=== PATIENT | female | born 1935 | race Caucasian/White ===

== ENCOUNTER 2017-02-23 20:20 | Emergency (ER) | payer OTHER ==
[~2017-02-23] VITALS: Ht 165.1 cm; Wt 100.2 kg
[~2017-02-23 20:20] MED LIST: COZAAR25 M1 PO; LASIX40 MG PO; METOPROLOL SUCC50 M2 PO; MULTI VITAMINS1 TAB PO; MULTI-DAY VITA1 EACH PO; OCUVITE WITH L1 EACH PO; PAROXETINE HCL40 M1 PO; PRADAXA150 M1 PO; PRAVASTATIN SOD10 M2 PO; SYNTHROID175 MCG PO; TRAZODONE HCL50 MG PO; ZESTRIL2.5 MG PO
--- NOTE | 2017-02-23 20:24 | ED MVC/FALL/TRAUMA COMPLAINT ---
History of Present Illness General Chief Complaint: Fall Stated Complaint: BIBA FOR FALL Source: patient, EMS Exam Limitations: no limitations Vital Signs & Intake/Output Vital Signs & Intake/Output Vital Signs Date Time Temp Pulse Resp B/P Pulse O2 O2 Flow FiO2 Ox Delivery Rate 02/23 2341 98.4 64 18 142/72 95 Room Air 02/23 2100 98.2 66 18 159/80 94 Room Air ED Intake and Output 02/24 0000 02/23 1200 Intake Total 0 Output Total Balance 0 Intake, Oral 0 Patient 221 lb Weight Allergies Coded Allergies: coconut oil (ITCHING ALL OVER 07/31/16) codeine ("MY BP GOES WAY DOWN" 07/31/16) Reconcile Medications DABIGATRAN ETEXILATE MESYLATE (Pradaxa) 150 MG CAPSULE 1 CAP PO BID BLOOD THINNER (Reported) Furosemide (Lasix) 40 MG TABLET 1 TAB PO DAILY congestive heart failure Levothyroxine Sodium (Synthroid) 0.175 MG TAB 0.175 MG PO DAILY AC THYROID ( Reported) Levothyroxine Sodium (Synthroid) 175 MCG TABLET 1 TAB PO DAILY THYROID HEALTH (Reported) Losartan Potassium 25 MG TABLET 1 TAB PO DAILY BP (Reported) Metoprolol Succinate 50 MG TAB.ER.24H 50 MG PO DAILY BP (Reported) Multivitamin (Multi-Day Vitamins) 1 EACH TABLET 1 TAB PO DAILY SUPPLEMENT ( Reported) PAROXETINE HCL (Paroxetine) 40 MG TABLET 40 MG PO DAILY DEPRESSION (Reported) Pravastatin Sodium 10 MG TABLET 1 TAB PO DAILY CHOLESTEROL (Reported) Vit A,C & E/Lutein/Minerals (Ocuvite With Lutein Tablet) 1 EACH TABLET 1 TAB PO DAILY SUPPLEMENT (Reported) Triage Nurses Notes Reviewed? yes Onset: Abrupt Duration: minute(s): Timing: single episode today Severity: moderate Injuries/Fall Location: head, neck Method of Injury: fall Loss of Consciousness: no loss of consciousness Modifying Factors: Worsens With: movement. Associated Symptoms: headache, neck pain HPI: 81 yo woman presents with headache and neck pain after a fall. She notes that she was vacumming and her legs got caught in the power cord. She fell, hit her head on a cupboard on the way down. She denies LOC. She had no shortness of breath, chest pain, syncopal type symptoms. She is otherwise well. Past History Travel History Traveled to [place] past 21 day No Medical History Any Pertinent Medical History? 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 SISTER Relation not specified for: FH: CHF (congestive heart failure) FH: kidney disease Hx Contributory? No Review of Systems Review of Systems Constitutional: Reports: no symptoms. Eyes: Reports: no symptoms. Ears, Nose, Throat, Mouth: Reports: no symptoms. Respiratory: Reports: no symptoms. Cardiovascular: Reports: no symptoms. Gastrointestinal/Abdominal: Reports: no symptoms. Genitourinary: Reports: no symptoms. Musculoskeletal: Reports: no symptoms. Skin: Reports: no symptoms. Neurological/Psychological: Reports: no symptoms. All Other Systems: Reviewed and Negative Physical Exam Physical Exam General Appearance: well developed/nourished, mild distress Head: atraumatic, normal appearance Eyes: Bilateral: normal appearance, PERRL, EOMI. Ears, Nose, Throat, Mouth: hearing grossly normal Neck: normal inspection, supple, full range of motion, normal alignment Respiratory: normal breath sounds, chest non-tender, no respiratory distress, quiet respiration, lungs clear Cardiovascular: regular rate/rhythm Gastrointestinal: normal bowel sounds, soft, non-tender, no organomegaly Back: normal inspection, normal range of motion Extremities: normal range of motion Neurologic/Psych: no motor/sensory deficits, awake, alert, oriented x 3 Skin: intact, normal color, warm/dry Core Measures ACS in differential dx? No Severe Sepsis Present: No Septic Shock Present: No Progress Differential Diagnosis: C/T/L spine injury, ICH Plan of Care: Orders Procedure Date/time Status EKG 02/23 2031 Active Diagnostic Imaging: Viewed by Me: CT Scan. Discussed w/RAD: CT Scan. Radiology Impression: head/cervical ct... no acute disease... full report below. Comments: PATIENT: RUBÉN ANG PRESENT AGE: 81 PATIENT ACCOUNT NO: [id number] : 35 LOCATION: [facility] ORDERING PHYSICIAN: ARTURO BASHIR MD SERVICE DATE: 02/23/17 EXAM TYPE: CAT - CT CERV SPINE WO IV CONTRAST; CT HEAD WO IV CONTRAST EXAMINATION: CT HEAD AND CERVICAL SPINE. CLINICAL INFORMATION: Fall. Head and neck pain. On Pradaxa. COMPARISON: No relevant prior imaging available. TECHNIQUE: Parking Meter Mechanic images were obtained. CT acquisition of the head and cervical spine was performed without intravenous administration of contrast. Data was reformatted into multiplanar images at the acquisition workstation. DLP: 1155.89 mGy-cm. FINDINGS: Head: There is no acute intracranial hemorrhage or abnormal extra-axial collection. There is a partially calcified dome-shaped dural based right convexity mass near the vertex best illustrated on coronal image 137 of 226 series 601 that measures 0.9 cm from base to apex that is most consistent with a meningioma. There is no intracranial mass effect or midline shift. Lateral and third ventricles are proportionate to the subarachnoid spaces. No hydrocephalus. Ill-defined foci of hypoattenuation visualized within the periventricular white matter most likely represent a chronic manifestation of small vessel ischemia. Ly-white matter differentiation is otherwise preserved and there is no evidence of acute territorial infarct. The calvarium and skull base are intact. Mastoid air cells and middle ear cavities are well aerated. Visualized paranasal sinuses are well aerated. Cervical spine: There is slight anterolisthesis of C3 on C4, C4 on C5, C5 on C6, and C7 on T1 related to advanced facet degenerative changes at these 4 levels. Vertebral alignment is otherwise maintained in the sagittal dimension. Vertebral body heights are preserved. There is no evidence of acute fracture. No abnormal prevertebral soft tissue swelling. There is loss of intervertebral disc height with associated sclerotic degenerative endplate changes at C6-C7. Grossly there is no evidence of canal compromise. Heavily calcified atheromatous plaque involves both carotid bifurcations. There is a retropharyngeal course of both common carotid arteries. Soft tissues of the neck are grossly unremarkable. Lung apices are clear. IMPRESSION: Head: No acute intracranial hemorrhage. Incidentally there is a right convexity meningioma near the vertex measuring 0.9 cm from base to apex. Cervical spine: No acute cervical spine fracture. There is multilevel degenerative spondylosis of the cervical spine with slight anterolisthesis at multiple levels related to advanced facet degenerative changes. Grossly no evidence of bony canal compromise. DICTATED BY: LIVIER CASTILLO MD DATE/TIME DICTATED:02/23/172104 RN OR LVN:MAGGY DATE/TIME TRANSCRIBED:02/23/172104 CONFIDENTIAL, DO NOT COPY WITHOUT APPROPRIATE AUTHORIZATION. <Electronically signed in Other Vendor System> SIGNED BY: LIVIER CASTILLO MD 02/23 Departure Departure Disposition: HOME OR SELF CARE Condition: Stable Clinical Impression Primary Impression: Fall Secondary Impressions: Head injury, Neck pain Referrals: KARLI DE JESUS,LEENA Antunez (PCP/Family) Departure Forms: Customer Survey General Discharge Information Comments pt well appearing and would like to go home... discussed findings at length, including meningioma... and showed family/patient the ct scan dictation.... pt safe for discharge with close follow up.
--- NOTE | 2017-02-23 21:37 | CT SCAN REPORT ---
EXAMINATION: CT HEAD AND CERVICAL SPINE. CLINICAL INFORMATION: Fall. Head and neck pain. On Pradaxa. COMPARISON: No relevant prior imaging available. TECHNIQUE: Director Of Services images were obtained. CT acquisition of the head and cervical spine was performed without intravenous administration of contrast. Data was reformatted into multiplanar images at the acquisition workstation. DLP: 1155.89 mGy-cm. FINDINGS: Head: There is no acute intracranial hemorrhage or abnormal extra-axial collection. There is a partially calcified dome-shaped dural based right convexity mass near the vertex best illustrated on coronal image 137 of 226 series 601 that measures 0.9 cm from base to apex that is most consistent with a meningioma. There is no intracranial mass effect or midline shift. Lateral and third ventricles are proportionate to the subarachnoid spaces. No hydrocephalus. Ill-defined foci of hypoattenuation visualized within the periventricular white matter most likely represent a chronic manifestation of small vessel ischemia. Ly-white matter differentiation is otherwise preserved and there is no evidence of acute territorial infarct. The calvarium and skull base are intact. Mastoid air cells and middle ear cavities are well aerated. Visualized paranasal sinuses are well aerated. Cervical spine: There is slight anterolisthesis of C3 on C4, C4 on C5, C5 on C6, and C7 on T1 related to advanced facet degenerative changes at these 4 levels. Vertebral alignment is otherwise maintained in the sagittal dimension. Vertebral body heights are preserved. There is no evidence of acute fracture. No abnormal prevertebral soft tissue swelling. There is loss of intervertebral disc height with associated sclerotic degenerative endplate changes at C6-C7. Grossly there is no evidence of canal compromise. Heavily calcified atheromatous plaque involves both carotid bifurcations. There is a retropharyngeal course of both common carotid arteries. Soft tissues of the neck are grossly unremarkable. Lung apices are clear. IMPRESSION: Head: No acute intracranial hemorrhage. Incidentally there is a right convexity meningioma near the vertex measuring 0.9 cm from base to apex. Cervical spine: No acute cervical spine fracture. There is multilevel degenerative spondylosis of the cervical spine with slight anterolisthesis at multiple levels related to advanced facet degenerative changes. Grossly no evidence of bony canal compromise.
[2017-02-23] MEDS ORDERED: SYNTHROID175 MCG PO (23:30)
[2017-02-23 23:41] VITALS: BP 142/72
== END 2017-02-23 23:42 ==
LOC: ERH 20:20
DX: S09.90XA Unspecified injury of head, initial encounter (principal); M54.2 Cervicalgia; W19.XXXA Unspecified fall, initial encounter; Y92.9 Unspecified place or not applicable; Y93.E3 Activity, vacuuming

== ENCOUNTER 2017-03-28 10:11 | Inpatient (IN) | payer OTHER ==
[~2017-03-28] VITALS: Ht 162.6 cm; Wt 102.5 kg
[2017-03-28] MEDS ORDERED: FUROSEMIDE40 M1 PO (10:34)
--- NOTE | 2017-03-28 10:44 | ED MVC/FALL/TRAUMA COMPLAINT ---
History of Present Illness General Chief Complaint: Fall Stated Complaint: FALL Source: patient, old records, EMS Exam Limitations: no limitations Vital Signs & Intake/Output Vital Signs & Intake/Output Vital Signs Date Time Temp Pulse Resp B/P B/P Pulse O2 O2 Flow FiO2 Mean Ox Delivery Rate 03/28 1457 97.5 89 20 122/80 98 03/28 1402 84 18 140/74 93 Room Air 03/28 1218 98.4 78 18 162/70 93 Room Air 03/28 1040 93 03/28 1013 97.9 85 20 178/107 93 Room Air Allergies Coded Allergies: coconut oil (ITCHING ALL OVER 07/31/16) codeine ("MY BP GOES WAY DOWN" 07/31/16) Reconcile Medications Dabigatran Etexilate Mesylate (Pradaxa 150 MG) 150 MG CAPSULE 1 CAP PO BID BLOOD THINNER (Reported) Furosemide 40 MG TABLET 1 TAB PO DAILY CHF (Reported) Levothyroxine Sodium (Synthroid) 175 MCG TABLET 1 TAB PO DAILY AC THYROID ( Reported) Losartan Potassium (Cozaar) 25 MG TABLET 1 TAB PO DAILY BP (Reported) Metoprolol Succinate 50 MG TAB.ER.24H 1 TAB PO DAILY BP (Reported) Multivitamin (Multi-Day Vitamins) 1 EACH TABLET 1 TAB PO DAILY SUPPLEMENT ( Reported) Paroxetine HCl 40 MG TABLET 1 TAB PO DAILY DEPRESSION (Reported) Pravastatin Sodium 10 MG TABLET 1 TAB PO DAILY CHOLESTEROL (Reported) Vit A,C & E/Lutein/Minerals (Ocuvite With Lutein Tablet) 1 EACH TABLET 1 TAB PO DAILY SUPPLEMENT (Reported) Triage Note: BIBA FROM HOME, S/P FALL IN BATHROOM, STATES SHE TRIPPED OVER HER 'S OXYGEN HOSE, HIT LEFT SIDE OF HEAD AND LEFT HIP. C/O PAIN IN LEFT HIP. DENIES DIZZINESS, WEAKNESS, CHEST PAIN PRIOR TO FALL. PT IS ON PRADAXA. Triage Nurses Notes Reviewed? yes Onset: Abrupt Duration: hour(s): (1), constant Timing: recent history Severity: severe Severity Numbers: 10 Injuries/Fall Location: lower extremity Method of Injury: fall Loss of Consciousness: no loss of consciousness Modifying Factors: Worsens With: movement. Associated Symptoms: DENIES HPI: This is an 81-year-old female history of CHF and A. fib on pradaxa presents to the ER status post mechanical fall when she tripped over her 's oxygen hose striking her left hip. She now presents complaining of moderate to severe left hip pain is worse with movement. She denies any prodromal dizziness lightheadedness chest pain palpitations prior to the fall. She states that she did bump her head however there is no loss of consciousness she denies any neck or back pain or arm pain chest pain abdominal pain or other injury. (EASTON GANDHI) Past History Travel History Traveled to [place] past 21 day No Medical History Any Pertinent Medical History? 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 SISTER Relation not specified for: FH: CHF (congestive heart failure) FH: kidney disease Hx Contributory? No (EASTON GANDHI) Review of Systems Review of Systems Constitutional: Reports: see HPI. All Other Systems: Reviewed and Negative Comments Review of systems: See HPI, All other systems negative. Constitutional, no chills no fever, no malaise HEENT: no sore throat no congestion Cardiovascular: No chest pain , no palpitation , no orthopnea Skin: no rashes, no change in skin Respiratory: No dyspnea no cough no sputum GI: No nausea no vomiting, no diarrhea, : No dysuria No hematuria, Muscle skeletal: joint pain, no joint swelling, no back pain, no neck pain, Neurologic: No numbness no confusion, no headache Psych: No stress Heme/endocrine: No bruising Immunology: No lymphadenopathy (EASTON GANDHI) Physical Exam Physical Exam General Appearance: well developed/nourished, alert, awake, moderate distress Comments: Well-developed well-nourished person in no acute distress HEENT: Normal EENT exam; PERRL, EOMI, no nystagmus. HEAD is atraumatic. moist mucous membranes. Neck: Supple,, normal range of motion without pain or tenderness Back: Nontender, no CVA tenderness. Full range of motion Cardiovascular: Regular rate and rhythms no murmurs rubs or gallops, Respiratory: chest nontender, No respiratory distress. Patient speaking in full complete sentences. Breath sounds clear to auscultation bilaterally: NO W/R/R Abdomen: Soft, nontender nondistended, no appreciable organomegaly. Normal bowel sounds. No rebound/guarding, No appreciable enlargement of the abdominal aorta, No ascites. Upper Extremity: No edema, full range of motion of extremities, normal and equal pulses bilaterally, 5 out of 5 strength noted to bilateral upper and lower extremities Hip/Pelvis: L leg is shortned and externall rotated, Severely lrom seconary to pain, r hip is Atraumatic/Stable. FROM. Knee: Atraumatic/stable. FROM. No joint swelling, no effusion. No laxity. Negative eric/anterior drawer test. No pain with ROM Leg: Atraumatic. Nontender. No edema, 5 out of 5 strength in the lower extremity, normal dorsiflexion of great toe bilaterally, gross sensation is intact, patellar tendon reflex 2+ bilaterally. Ankle/Foot: Atraumatic/stable. Skin intact. FROM. No swelling, no effusion. No laxity on exam Pulses: Normal/equal DP/PT pulses bilaterally. Brisk cap refill Neuro: Alert oriented x3, motor sensory normal, cranial nerves II through XII grossly intact. There were no obvious focal neurologic abnormalities. Skin: No appreciable rash on exposed skin, skin is warm and dry. Psych: Mood and affect is normal, memory and judgment is normal. Core Measures ACS in differential dx? Yes Severe Sepsis Present: No Septic Shock Present: No (ALPHONSO BARTHOLOMEW,EASTON) Progress Differential Diagnosis: C/T/L spine injury, ext injury, ICH, pelvis injury, spinal cord injury Plan of Care: Orders Procedure Date/time Status PT Evaluate & Treat 03/30 UNK Active Heart Healthy Diet 03/28 D Active Vital Signs 03/28 1355 Active Teach/Educate 03/28 1355 Active Pain Treatment and Response 03/28 1355 Active Nutritional Intake, Monitor 03/28 1355 Active Isolation 03/28 1355 Active Intake & Output 03/28 1355 Active Patient Care Conference 03/28 1355 Active Activity/Ambulation 03/28 135 Active Pathway - chart 03/28 1253 Active House Staff 03/28 1253 Active Bowers, Insertion/Removal/Asses 03/28 1221 Active CULTURE,URINE 03/28 1221 Active Patient Data 03/28 1217 Active ED Holding Orders 03/28 1213 Active Vital Signs 03/28 1213 Active Code Status 03/28 1213 Active Admit to inpatient 03/28 1212 Active Telemetry/Care Administrative Tech 03/28 1030 Complete TROPONIN LEVEL 03/28 1030 Complete PARTIAL THROMBOPLASTIN TIME 03/28 1030 Complete PROTHROMBIN TIME 03/28 1030 Complete COMPREHENSIVE METABOLIC PANEL 03/28 1030 Complete CBC WITHOUT DIFFERENTIAL 03/28 1030 Complete EKG 03/28 1030 Active TYPE & SCREEN (NOT X-MATCH) 03/28 1030 Active Intake & Output 03/28 1022 Active VTE Mechanical Prophylaxis 03/28 UNK Active Current Medications Sig/Tena Start time Last Medication Dose Stop Time Status Admin Pravastatin Sodium 10 MG 1700 03/29 1700 AC (Pravachol) Furosemide 40 MG DAILY 03/29 1000 AC (Lasix) Losartan Potassium 25 MG DAILY 03/29 1000 AC (Cozaar) Metoprolol Succinate 50 MG DAILY 03/29 1000 AC (Toprol Xl) Paroxetine HCl 40 MG DAILY 03/29 1000 AC (Paxil) Levothyroxine Sodium 0.175 MG DAILY AC 03/29 0700 AC (Synthroid) Heparin Sodium 5,000 UNIT Q8 03/28 2200 AC (Porcine) Morphine Sulfate 2 MG Q6P PRN 03/28 1415 AC 03/28 (Morphine) 1524 Acetaminophen 650 MG Q6P PRN 03/28 1300 AC (Tylenol) Ketorolac 15 MG Q6P PRN 03/28 1300 AC Tromethamine 04/02 1259 (Toradol) Laboratory Tests 03/28/17 1030: Anion Gap 11, Estimated GFR > 60, BUN/Creatinine Ratio 21.7, Glucose 104 H, Calcium 9.5, Total Bilirubin 0.7, AST 32, ALT 34, Alkaline Phosphatase 101, Troponin I < 0.01, Total Protein 7.2, Albumin 4.0, Globulin 3.2, Albumin/ Globulin Ratio 1.3, PT 13.5 H, INR 1.29 H, APTT 51 H, CBC w Diff NO MAN DIFF REQ, RBC 4.48, MCV 98.1, MCH 32.9 H, RDW 14.0, MPV 8.9, Gran % 58.8, Lymphocytes % 26.7, Monocytes % 10.8 H, Eosinophils % 3.4, Basophils % 0.3, Absolute Granulocytes 4.2, Absolute Lymphocytes 1.9, Absolute Monocytes 0.8 H, Absolute Eosinophils 0.2, Absolute Basophils 0, PUBS MCHC 33.5 Microbiology 03/28 1225 URINE ROUT: Urine Culture - RECD Patient medicated with morphine 2 mg IV labs ordered x-rays CAT scan ordered case discussed with Dr. baker who eval the pt and agrees with plan D/W THE PT AND HER DAUGHTER HER CT AND XDRAY RESULTS INCLUDING INCIDENTAL FINDINGS, CALL PLACED TO ORTHO Case discussed with surgical PA evaluate the patient and Dr. Biggs will admit to GEN med discussed the patient and her family her x-ray results, [facility] spoke with the unit receptionist and advised that the physician has seen the xray advised to have surgical pa eval the pt and admit to medicine (ALPHONSO BARTHOLOMEW,EASTON) Diagnostic Imaging: Viewed by Me: Radiology Read, CT Scan. Discussed w/RAD: Radiology Read, CT Scan. Radiology Impression: PATIENT: RUBÉN ANG PRESENT AGE: 81 PATIENT ACCOUNT NO: [id number] : 35 LOCATION: [facility] ORDERING PHYSICIAN: EASTON BARTHOLOMEW SERVICE DATE: 03/28/17 EXAM TYPE: RAD - XRY-ANKLE 3 OR MORE VIEWS L; XRY-HIP 2-3 VIEWS, LEFT EXAMINATION: CR LEFT HIP. CR LEFT ANKLE. CLINICAL INFORMATION: Fall. Left hip pain. Presumptive diagnosis of hip fracture. Ankle pain. COMPARISON: CT scan of the abdomen and pelvis dated 03/31/2015. TECHNIQUE: Frontal and frog-leg lateral views of the left hip. Single lateral view of the left ankle. FINDINGS: Left hip: Evaluation is limited due to difficulties with patient positioning. Diffuse osteopenia. Mildly comminuted intratrochanteric fracture of the left proximal femur with varus deformity and slight overriding of fracture fragments. Left femoral head remains located within the acetabulum. Mild degenerative changes seen in the left hip joint with joint space narrowing, spurring and cystic changes noted across both sides of the joint. Mild sclerotic changes are also seen at the pubic symphysis and sacroiliac joint. Arteriovascular calcifications seen in the groin and proximal thigh. Left ankle: Single lateral view demonstrates a side plate with interlocking screws projected over the distal fibula. There is marked flattening of the talar dome and [id number] appearance of the tibiotalar joint with associated biopsy, sclerotic change and cystic change noted. Flattening of the plantar arch is seen. Fusion of the calcaneus and talus is noted. No significant ankle joint effusion is seen. Mild soft tissue swelling is noted about the anterior aspect of the ankle joint. Diffuse osteopenia is present. Degenerative changes as seen in the intertarsal joints. IMPRESSION: 1. Acute comminuted and mildly impacted intertrochanteric fracture of the left proximal femur. 2. Evaluation of left ankle limited but there is evidence of prior open reduction internal fixation presumably of the distal fibular fracture. Arthrodesis of the hindfoot is also noted as discussed above. 3. Osteopenia. DICTATED BY: ANGELICA HALL MD DATE/TIME DICTATED:03/28/171210 GAME TECHNICIAN:MAGGY DATE/TIME TRANSCRIBED:03/28/171210 CONFIDENTIAL, DO NOT COPY WITHOUT APPROPRIATE AUTHORIZATION. <Electronically signed in Other Vendor System> SIGNED BY: ANGELICA HALL MD 03/28/17 1223, PATIENT: RUBÉN ANG PRESENT AGE: 81 PATIENT ACCOUNT NO : [id number] : 35 LOCATION: [facility] ORDERING PHYSICIAN: EASTON BARTHOLOMEW SERVICE DATE: 03/28/17 EXAM TYPE: RAD - XRY-CHEST XRAY, ONE VIEW ONLY EXAMINATION:\\H\\ \\N\\XR CHEST CLINICAL INFORMATION: Fall. Hip fracture COMPARISON: 07/31/2016 TECHNIQUE: AP view of the chest was obtained. FINDINGS: No acute findings compared to the prior radiograph. Probable chronic, mild atelectasis in the lingula adjacent to the prominent pericardial fat pad. No pulmonary edema, focal consolidation or pleural effusion. Cardiac silhouette is chronically enlarged. The single lead pacemaker is in satisfactory position. Thoracic aorta is calcified. Chronic osteoarthritis of glenohumeral joints. Mild dextrocurvature of the degenerated thoracic spine. IMPRESSION: - Cardiomegaly without pulmonary edema. - No acute cardiopulmonary disease compared to 2015. DICTATED BY: TAYE RODRIGUES MD DATE/TIME DICTATED:03/28/171213 GAME TECHNICIAN:MAGGY DATE/TIME TRANSCRIBED:03/28/171213 CONFIDENTIAL, DO NOT COPY WITHOUT APPROPRIATE AUTHORIZATION. <Electronically signed in Other Vendor System> SIGNED BY: TAYE RODRIGUES MD 03/28/171219, PATIENT: RUBÉN ANG PRESENT AGE: 81 PATIENT ACCOUNT NO: [id number] : 35 LOCATION: [facility] ORDERING PHYSICIAN: EASTON BARTHOLOMEW SERVICE DATE: 03/28/17 EXAM TYPE: CAT - CT HEAD WO IV CONTRAST EXAMINATION: CT HEAD WITHOUT CONTRAST CLINICAL INFORMATION: One projects a. Fall. Hit head. Assess for intracranial bleed. COMPARISON: CT scan of the head 02/23/2017. TECHNIQUE: Contiguous axial imaging was performed from the skull base to vertex without intravenous administration of contrast. DLP: 617.42 mGy-cm FINDINGS: There is no evidence of acute intracranial hemorrhage or territorial infarction. No abnormal mass effect or midline shift is seen. Ly to white matter differentiation is well preserved. No extra-axial fluid collections are identified. The ventricles are normal in size. There are scattered areas of low attenuation in the periventricular and subcortical white matter, consistent with chronic microvascular ischemic changes. There are no acute osseous findings. There is hyperostosis frontalis interna. An extra-axial well-defined partially calcified lesion in the high left frontal region medially which measures 1.1 cm may be consistent with a meningioma. There is no significant mass effect on the adjacent brain parenchyma. There are degenerative changes at the left temporomandibular joint. There have been bilateral lens extractions. There are no large scalp contusions or hematomas. The mastoid air cells and visualized portions of the paranasal sinuses are well aerated. IMPRESSION: 1. There are no intracranial bleeds or territorial infarcts. 2. There is likely a meningioma in the high right frontal region medially, unchanged. 3. There are changes consistent with chronic microvascular ischemic disease. DICTATED BY: CAROLEE SMART MD DATE/TIME DICTATED:03/28/171219 GAME TECHNICIAN:MAGGY DATE/TIME TRANSCRIBED:03/28/171219 CONFIDENTIAL, DO NOT COPY WITHOUT APPROPRIATE AUTHORIZATION. <Electronically signed in Other Vendor System> SIGNED BY: CAROLEE SMART MD 03/28/17 1232 Initial ED EKG: vpaced at 60, normal axis,no acute st seg changes Prior EKG: unchanged (07/2016) (EASTON GANDHI) Departure Departure Disposition: STILL A PATIENT Condition: Stable Clinical Impression Primary Impression: Intertrochanteric fracture of left hip Secondary Impressions: Fall Referrals: KARLI DE JESUS,LEENA Antunez (PCP/Family) Departure Forms: Customer Survey General Discharge Information Admission Note Spoke With: WINNIE BIGGS MD Documentation of Exam: Documentation of any treatments & extenuating circumstances including Concerns Regarding Discharge (functional status, medication knowledge or non-compliance, living conditions, etc.) that warrant an admission rather than observation: will require will require surgical fixation, ortho, cardiology clearance, premature discharge would be medically harmful (EASTON GANDHI) PA/INVENTORY PLANNER Co-Sign Statement Statement: ED Attending supervision documentation- [X] I saw and evaluated the patient. I have also reviewed all the pertinent lab results and diagnostic results. I agree with the findings and the plan of care as documented in the PA's/INVENTORY PLANNER's documentation. [] I have reviewed the ED Record and agree with the PA's/INVENTORY PLANNER's documentation. [] Additions or exceptions (if any) to the PAs/INVENTORY PLANNER's note and plan are summarized below: [] (BRENDA BAKER DO)
[2017-03-28 10:55] LABS: ABSOLUTE BASOPHIL COUNT 0 /CUMM (0.0-0.2); ABSOLUTE EOSINOPHIL COUNT 0.2 /CUMM (0.0-0.7); ABSOLUTE GRANULOCYTE CT 4.2 /CUMM (1.4-6.5); ABSOLUTE LYMPH COUNT 1.9 /CUMM (1.2-3.4); ABSOLUTE MONOCYTE COUNT 0.8 /CUMM (0.10-0.60); BASOPHIL % 0.3 % (0.0-2.0); EOSINOPHIL % 3.4 % (0-5); GRANULOCYTE % 58.8 % (42.2-75.2); HEMATOCRIT 43.9 % (37-47); MEAN CORPUSCULAR HGB 32.9 PG (27.0-31.0); MEAN CORPUSCULAR HGB CONC 33.5 G/DL (33.0-37.0); MEAN CORPUSCULAR VOLUME 98.1 FL (81.0-99.0); MEAN PLATELET VOLUME 8.9 FL (7.4-10.4); PLATELET COUNT 201 /CUMM (130-400); RED BLOOD CELL CT 4.48 /CUMM (4.20-5.40); WHITE BLOOD CELL COUNT 7.2 /CUMM (4.8-10.8)
[2017-03-28 11:03] LABS: PT 13.5 SEC (9.4-12.5); PTT 51 SEC (25-37)
--- NOTE | 2017-03-28 12:20 | RADIOLOGY REPORT ---
EXAMINATION:\H\ \N\XR CHEST CLINICAL INFORMATION: Fall. Hip fracture COMPARISON: 07/31/2016 TECHNIQUE: AP view of the chest was obtained. FINDINGS: No acute findings compared to the prior radiograph. Probable chronic, mild atelectasis in the lingula adjacent to the prominent pericardial fat pad. No pulmonary edema, focal consolidation or pleural effusion. Cardiac silhouette is chronically enlarged. The single lead pacemaker is in satisfactory position. Thoracic aorta is calcified. Chronic osteoarthritis of glenohumeral joints. Mild dextrocurvature of the degenerated thoracic spine. IMPRESSION: - Cardiomegaly without pulmonary edema. - No acute cardiopulmonary disease compared to 08/10/2016.
--- NOTE | 2017-03-28 12:23 | RADIOLOGY REPORT ---
EXAMINATION: CR LEFT HIP. CR LEFT ANKLE. CLINICAL INFORMATION: Fall. Left hip pain. Presumptive diagnosis of hip fracture. Ankle pain. COMPARISON: CT scan of the abdomen and pelvis dated 03/31/2015. TECHNIQUE: Frontal and frog-leg lateral views of the left hip. Single lateral view of the left ankle. FINDINGS: Left hip: Evaluation is limited due to difficulties with patient positioning. Diffuse osteopenia. Mildly comminuted intratrochanteric fracture of the left proximal femur with varus deformity and slight overriding of fracture fragments. Left femoral head remains located within the acetabulum. Mild degenerative changes seen in the left hip joint with joint space narrowing, spurring and cystic changes noted across both sides of the joint. Mild sclerotic changes are also seen at the pubic symphysis and sacroiliac joint. Arteriovascular calcifications seen in the groin and proximal thigh. Left ankle: Single lateral view demonstrates a side plate with interlocking screws projected over the distal fibula. There is marked flattening of the talar dome and [id number] appearance of the tibiotalar joint with associated biopsy, sclerotic change and cystic change noted. Flattening of the plantar arch is seen. Fusion of the calcaneus and talus is noted. No significant ankle joint effusion is seen. Mild soft tissue swelling is noted about the anterior aspect of the ankle joint. Diffuse osteopenia is present. Degenerative changes as seen in the intertarsal joints. IMPRESSION: 1. Acute comminuted and mildly impacted intertrochanteric fracture of the left proximal femur. 2. Evaluation of left ankle limited but there is evidence of prior open reduction internal fixation presumably of the distal fibular fracture. Arthrodesis of the hindfoot is also noted as discussed above. 3. Osteopenia.
--- NOTE | 2017-03-28 12:32 | CT SCAN REPORT ---
EXAMINATION: CT HEAD WITHOUT CONTRAST CLINICAL INFORMATION: One projects a. Fall. Hit head. Assess for intracranial bleed. COMPARISON: CT scan of the head 02/23/2017. TECHNIQUE: Contiguous axial imaging was performed from the skull base to vertex without intravenous administration of contrast. DLP: 617.42 mGy-cm FINDINGS: There is no evidence of acute intracranial hemorrhage or territorial infarction. No abnormal mass effect or midline shift is seen. Ly to white matter differentiation is well preserved. No extra-axial fluid collections are identified. The ventricles are normal in size. There are scattered areas of low attenuation in the periventricular and subcortical white matter, consistent with chronic microvascular ischemic changes. There are no acute osseous findings. There is hyperostosis frontalis interna. An extra-axial well-defined partially calcified lesion in the high left frontal region medially which measures 1.1 cm may be consistent with a meningioma. There is no significant mass effect on the adjacent brain parenchyma. There are degenerative changes at the left temporomandibular joint. There have been bilateral lens extractions. There are no large scalp contusions or hematomas. The mastoid air cells and visualized portions of the paranasal sinuses are well aerated. IMPRESSION: 1. There are no intracranial bleeds or territorial infarcts. 2. There is likely a meningioma in the high right frontal region medially, unchanged. 3. There are changes consistent with chronic microvascular ischemic disease.
--- NOTE | 2017-03-28 12:55 | History & Physical ---
JOSE LOPEZ MD 03/28/17 2927: General Information and HPI MD Statement: I have seen and personally examined RUBÉN ANG and documented this H&P. The patient is a 81 year old F who presented with a patient stated chief complaint of [right hip pain]. Source of Information: patient, family History of Present Illness: THIS IS A 81-year-old woman with a past medical history of chronic atrial fibrillation (anticoagulated with Pradaxa), sick sinus syndrome, status post pacemaker implantation 2 years back, hypothyroidism and COPD on home oxygen as weLL all, pulmonary hypertension with RV pressures greater than 50 on the last echo in 2016, who presented to the [facility] after she had a mechanical fall while trying to ambulate with her walker. As per the patient she was trying to get out of the bed and her walker caught tangled in the oxygen tubing(FOR her ). The patient slightly twisted her leg and landed up on her left hip. The patient never lost consciousness, denied any dizziness, palpitations, chest pain prior to the fall. Patient has an extensive cardiac history as mentioned above and has taken her dose of pradaxa in The morning Allergies/Medications Allergies: Coded Allergies: coconut oil (ITCHING ALL OVER 07/31/16) codeine ("MY BP GOES WAY DOWN" 07/31/16) Home Med list Dabigatran Etexilate Mesylate (Pradaxa 150 MG) 150 MG CAPSULE 1 CAP PO BID BLOOD THINNER (Reported) Furosemide 40 MG TABLET 1 TAB PO DAILY CHF (Reported) Levothyroxine Sodium (Synthroid) 175 MCG TABLET 1 TAB PO DAILY AC THYROID ( Reported) Losartan Potassium (Cozaar) 25 MG TABLET 1 TAB PO DAILY BP (Reported) Metoprolol Succinate 50 MG TAB.ER.24H 1 TAB PO DAILY BP (Reported) Multivitamin (Multi-Day Vitamins) 1 EACH TABLET 1 TAB PO DAILY SUPPLEMENT ( Reported) Paroxetine HCl 40 MG TABLET 1 TAB PO DAILY DEPRESSION (Reported) Pravastatin Sodium 10 MG TABLET 1 TAB PO DAILY CHOLESTEROL (Reported) Vit A,C & E/Lutein/Minerals (Ocuvite With Lutein Tablet) 1 EACH TABLET 1 TAB PO DAILY SUPPLEMENT (Reported) Past History Travel History Traveled to [place] past 21 day No Medical History Neurological: NONE EENT: NONE Cardiovascular: AFIB, CHF, PACEMAKER CAROTID STENTS PER PT PACEMAKER Respiratory: NONE Gastrointestinal: NONE Hepatic: NONE Renal: NONE Musculoskeletal: NONE Psychiatric: NONE Endocrine: NONE Blood Disorders: NONE Cancer(s): breast cancer EXPLOSIVES ENGINEER/Reproductive: NONE History of MRSA: No History of VRE: No History of CDIFF: No Surgical History Surgical History: STAUS POST THYROIDECTOMY Past Family/Social History Family History Relations & Conditions if any FATHER, . SISTER MOTHER MOTHER Relation not specified for: FH: CHF (congestive heart failure) FH: hypertension FH: kidney disease Psychosocial History Services at Home: None Primary Language: Monegasque Smoking Status: Never Smoked ETOH Use: occasional use Review of Systems Review of Systems Constitutional: Reports: see HPI. EENTM: Reports: see HPI. Cardiovascular: Reports: chest pain. Denies: edema, orthopena, palpitations. Respiratory: Denies: cough, hemoptysis, orthopnea, short of breath. GI: Denies: abdominal pain, constipation, distention. Genitourinary: Denies: dysuria, frequency, hematuria, hesitation. Musculoskeletal: Reports: see HPI. Exam & Diagnostic Data Last 24 Hrs of Vital Signs/I&O Vital Signs Date Time Temp Pulse Resp B/P B/P Pulse O2 O2 Flow FiO2 Mean Ox Delivery Rate 03/28 1218 98.4 78 18 162/70 93 Room Air 03/28 1040 93 03/28 1013 97.9 85 20 178/107 93 Room Air Intake & Output 03/28 1600 03/28 0800 03/28 0000 Intake Total 10 Output Total Balance 10 Intake, IV 10 Patient 226 lb Weight Weight Reported by Patient Measurement Method Physical Exam General Appearance Alert, Oriented X3, Cooperative Skin No Rashes, No Breakdown Skin Temp/Moisture Exam: Warm/Dry Neck Supple, No JVD Lymphatic Axillary nl, Cervical nl Cardiovascular Normal S1, Normal S2 Lungs Clear to Auscultation, Normal Air Movement Abdomen Normal Bowel Sounds, Soft, No Tenderness, No Hepatospenomegaly Neurological Normal Speech, Strength at 5/5 X4 Ext, Normal Tone Extremities left leg shortened internally rotated Assessment/Plan Assessment: [id number] female with a past medical history of atrial fibrillation on Protonix, sick sinus syndrome status post pacemaker placement, to [facility] after having a mechanical fall which ended up in the left hip fracture Vitals at the time of admission showed blood pressure 162/70, afebrile, saturation of 94% on room air, respiration rate of 18, Labs shows WBC of 7.2, stable hemoglobin and hematocrit, Basic electrolyte panel within normal limits INR 1.29 EKG shows ventricle paced rhythm HIP xRY: 1. Acute comminuted and mildly impacted intertrochanteric fracture of the left proximal femur. 2. Evaluation of left ankle limited but there is evidence of prior open reduction internal fixation presumably of the distal fibular fracture. Arthrodesis of the hindfoot is also noted as discussed above. 3. Osteopenia. Asessment: 1. Acute Communted intratrochanteric fracture of left hip 2. H/O atrial fibrialltion on pradaxa with last dose on on the morning of 3.H/o sick sinus syndrome s/p pacemaker placement 4.H/O aortic aneyrusm s/p stent placemnet 5.H/O HLD 6.H/O Hypothyroidism and on synthroid. PLan: Admit to [facility] for aniticipation of surgery . Patient needs to be off Pradaxa 48 hours and hence we will make the patient nothing by mouth on night with the plan of surgery on Sunday morning Spoke to the patient's maintenance inspector Dr. Song Tan who is in agreement unfolding Pradaxa and no plans of bridging with IV heparin as the patient does not carry any previous history of stroke Dr. Peri Ferris will do a formal consult in the morning Continue with IV fluids and IV morphine for pain control Continue with all other home medications Appreciate orthopedic consult DVT prophylaxis with S/q Heaprin Fc Pain pathway As Ranked By This Provider Problem List: 1. CHF (congestive heart failure) 2. Intertrochanteric fracture of left hip Core Measures/Miscellaneous Acute Coronary Syndrome ACS Diagnosis: No Cerebrovascular Accident CVA/TIA Diagnosis: No Congestive Heart Failure CHF Diagnosis: No Venous Thromboembolism VTE Risk Factors: Acute medical illness, Age > 40 No [facility] VTE prophylaxis d/t: VTE low risk, No contraindications No VTE Pharm Prophylaxis d/t: VTE low risk, No contraindications VTE Diagnosis: No VTE Type: NONE VTE Confirmed by (Test): NONE Severe Sepsis Severe Sepsis Present: No Septic Shock Septic Shock Present: No Miscellaneous Documentation Attending Case Discussed With: LEONARD JOHNSON MD Primary Care Physician: LEENA CALVILLO MD Patient sees these Specialists dr peri tanner Level of Patient Care: General Medicine LEONARD JOHNSON 03/28/17 1340: Attending MD Review Statement Attending Statement Attending MD Statement: examined this patient, discuss w/resident/PA/EXCEPTIONAL NEEDS TEACHER, agreed w/resident/PA/EXCEPTIONAL NEEDS TEACHER, discussed with family, reviewed EMR data (avail), discussed with nursing, discussed with case mgmt, reviewed images, amended to note Attending Assessment/Plan: Patient being admitted for left hip fracture for repair. Pain control, hold pradaxa, orthopedis consult, gi/dvt prophyalxis, full code plan of care d/wed patient and family bedside.
--- NOTE | 2017-03-28 13:13 | Cons- Orthopedic ---
ABDIRIZAK LOPEZ 03/28/17 1241: General Information and HPI Consulting Request Date of Consult: 03/28/17 Requested By: LEONARD JOHNSON MD Reason for Consult: Left hip fracture s/p fall Source of Information: patient, family, old records History of Present Illness: 81yoF sp mechanical fall at home, found to have left intertrocanteric fracture. She ambulates with a walker at baseline, and her foot got caught in her ' s oxygen tubing which caused her to trip and fall. She does admit to hitting her head, however did not loose consciousness. She denies dizziness, lightheadedness, palpitations, chest pain or shortness of breath at the time of the fall and believes this was truly a mechanical fall. At this time, she has some pain in her left leg and hip, but denies any other symptoms including chest pain, shortness of breath, fever, chills, nausea, vomiting. She has an extensive past medical history, significant for atrial fibrillation on pradaxa (last dose this am), COPD on home O2, hypertension, hypothyroidism status post thyroidectomy, CHF, pulmonary hypertension, hyperlipidemia, sp orif left ankle. Allergies/Medications Allergies: Coded Allergies: coconut oil (ITCHING ALL OVER 07/31/16) codeine ("MY BP GOES WAY DOWN" 07/31/16) Home Med List: Dabigatran Etexilate Mesylate (Pradaxa 150 MG) 150 MG CAPSULE 1 CAP PO BID BLOOD THINNER (Reported) Furosemide 40 MG TABLET 1 TAB PO DAILY CHF (Reported) Levothyroxine Sodium (Synthroid) 175 MCG TABLET 1 TAB PO DAILY AC THYROID ( Reported) Losartan Potassium (Cozaar) 25 MG TABLET 1 TAB PO DAILY BP (Reported) Metoprolol Succinate 50 MG TAB.ER.24H 1 TAB PO DAILY BP (Reported) Multivitamin (Multi-Day Vitamins) 1 EACH TABLET 1 TAB PO DAILY SUPPLEMENT ( Reported) Paroxetine HCl 40 MG TABLET 1 TAB PO DAILY DEPRESSION (Reported) Pravastatin Sodium 10 MG TABLET 1 TAB PO DAILY CHOLESTEROL (Reported) Vit A,C & E/Lutein/Minerals (Ocuvite With Lutein Tablet) 1 EACH TABLET 1 TAB PO DAILY SUPPLEMENT (Reported) Current Medications: Current Medications Sig/Tena Start time Last Medication Dose Route Stop Time Status Admin Morphine Sulfate 2 MG ONCE ONE 03/28 1215 DC 03/28 IV 03/28 1216 1218 Morphine Sulfate 0 .STK-MED ONE 03/28 1152 DC .ROUTE Morphine Sulfate 1 MG ONCE ONE 03/28 1145 DC 03/28 IV 03/28 1146 1216 Morphine Sulfate 2 MG ONCE ONE 03/28 1030 DC 03/28 IV 03/28 1031 1039 Past History Medical History Neurological: NONE EENT: NONE Cardiovascular: AFIB, CHF, PACEMAKER CAROTID STENTS PER PT PACEMAKER, pulmonary htn Respiratory: NONE Gastrointestinal: NONE Hepatic: NONE Renal: NONE Musculoskeletal: NONE Psychiatric: NONE Endocrine: NONE Blood Disorders: NONE Cancer(s): breast cancer MEDICAL TYPIST/Reproductive: NONE Surgical History Pertinent Surgical History: STAUS POST THYROIDECTOMY, s/p left ankle orif Family History Relations & Conditions If Any: FATHER, . SISTER Relation not specified for: FH: CHF (congestive heart failure) FH: kidney disease Psychosocial History Services at Home: None ETOH Use: occasional use Functional Ability Ambulation: walker Exam & Diagnostic Data Vital Signs and I&O Vital Signs Date Time Temp Pulse Resp B/P B/P Pulse O2 O2 Flow FiO2 Mean Ox Delivery Rate 03/28 1218 98.4 78 18 162/70 93 Room Air 03/28 1040 93 03/28 1013 97.9 85 20 178/107 93 Room Air Intake & Output 03/28 1600 03/28 0800 03/28 0000 03/27 1600 03/27 0800 03/27 0000 Intake Total 10 Output Total Balance 10 Intake, IV 10 Patient 226 lb Weight Weight Reported by Patient Measurement Method Physical Exam: GEN:NAD CARD: s1s2 irreg irreg PULM: decreased at bases anteriorly ABD: obese soft nt nd EXT: LLE shortened and externally rotated, sensation intact and equal bl, feet warm, +vericosities bl legs, calves soft nt bl, ttp at left thigh, skin intact, no ecchymosis Last 24 Hours of Labs: Laboratory Tests 03/28 1030 Chemistry Sodium (137 - 145 mmol/L) 137 Potassium (3.5 - 5.1 mmol/L) 4.1 Chloride (98 - 107 mmol/L) 96 L Carbon Dioxide (22 - 30 mmol/L) 30 Anion Gap (5 - 16) 11 BUN (7 - 17 mg/dL) 13 Creatinine (0.5 - 1.0 mg/dL) 0.6 Estimated GFR (>60 ml/min) > 60 BUN/Creatinine Ratio (7 - 25 %) 21.7 Glucose (65 - 99 mg/dL) 104 H Calcium (8.4 - 10.2 mg/dL) 9.5 Total Bilirubin (0.2 - 1.3 mg/dL) 0.7 AST (14 - 36 U/L) 32 ALT (9 - 52 U/L) 34 Alkaline Phosphatase (<127 U/L) 101 Troponin I (< 0.11 ng/ml) < 0.01 Total Protein (6.3 - 8.2 g/dL) 7.2 Albumin (3.5 - 5.0 g/dL) 4.0 Globulin (1.9 - 4.2 gm/dL) 3.2 Albumin/Globulin Ratio (1.1 - 2.2 %) 1.3 Coagulation PT (9.4 - 12.5 SEC) 13.5 H INR (0.90 - 1.19) 1.29 H APTT (25 - 37 SEC) 51 H Hematology CBC w Diff NO MAN DIFF REQ WBC (4.8 - 10.8 /CUMM) 7.2 RBC (4.20 - 5.40 /CUMM) 4.48 Hgb (12.0 - 16.0 G/DL) 14.7 Hct (37 - 47 %) 43.9 MCV (81.0 - 99.0 FL) 98.1 MCH (27.0 - 31.0 PG) 32.9 H RDW (11.5 - 14.5 %) 14.0 Plt Count (130 - 400 /CUMM) 201 MPV (7.4 - 10.4 FL) 8.9 Gran % (42.2 - 75.2 %) 58.8 Lymphocytes % (20.5 - 51.1 %) 26.7 Monocytes % (1.7 - 9.3 %) 10.8 H Eosinophils % (0 - 5 %) 3.4 Basophils % (0.0 - 2.0 %) 0.3 Absolute Granulocytes (1.4 - 6.5 /CUMM) 4.2 Absolute Lymphocytes (1.2 - 3.4 /CUMM) 1.9 Absolute Monocytes (0.10 - 0.60 /CUMM) 0.8 H Absolute Eosinophils (0.0 - 0.7 /CUMM) 0.2 Absolute Basophils (0.0 - 0.2 /CUMM) 0 PUBS MCHC (33.0 - 37.0 G/DL) 33.5 Imaging Results: LLE xray: Acute comminuted and mildly impacted intertrochanteric fracture of the left proximal femur. Evaluation of left ankle limited; evidence of prior open reduction internal fixation presumably of the distal fibular fracture. Further information: refer to rads read Assessment/Plan Assessment/Plan 81yoF with left intertroch fx, last dose of pradaxa (afib) this am, with multiple medical comorbidities, otherwise stable. PLAN: Agree with medical admission. May eat, please make NPO after mn the night prior to surgery.. Hold pradaxa. Defer to cardiology on length of held anticoagulation prior to surgery. Will require surgical fixation once medically optimized and cleared for surgery. DW Dr. French, surgery likely on Sunday of this week. Consult Acknowledgment - Thank you for your consult request. JOSE LOPEZ MD 03/28/17 1311: Assessment/Plan Consult Acknowledgment - Thank you for your consult request. Assessment/Plan Consult Acknowledgment - Thank you for your consult request.
[2017-03-28 14:57] VITALS: BP 122/80
[2017-03-28 22:36] VITALS: BP 112/60
--- NOTE | 2017-03-29 07:01 | PN- Housestaff ---
SOFIA DE JESUS,ORION 03/29/17 0701: Subjective Follow-up For: hip fracture Subjective: pt was seen today, was lying in bed, having a coughing fit. she reports no pain from the hip. I saw the patient with Dr. Raheel Mejia, and he has cleared her for surgery, that is planned for tomorrow. Pt has not had BM since admission, given that she is on opioids for pain control , bowel regimen ordered. de luna continued Review of Systems Constitutional: Reports: see HPI. Objective Last 24 Hrs of Vital Signs/I&O Vital Signs Date Time Temp Pulse Resp B/P B/P Pulse O2 O2 Flow FiO2 Mean Ox Delivery Rate 03/29 0946 74 116/76 03/29 0946 73 116/76 03/29 0704 97.9 73 20 110/60 90 03/28 2236 98.8 61 20 112/60 90 Room Air 03/28 1457 97.5 89 20 122/80 98 03/28 1402 84 18 140/74 93 Room Air 03/28 1218 98.4 78 18 162/70 93 Room Air Intake & Output 03/29 1600 03/29 0800 03/29 0000 Intake Total 240 Output Total 350 350 Balance -110 -350 Intake, Oral 240 Output, Urine 350 350 Physical Exam General Appearance: Alert, Oriented X3, Cooperative, No Acute Distress HEENT: Atraumatic Neck: Supple, No JVD, +2 Carotid Pulse wo Bruit Cardiovascular: irregularly irregular rate, rate controlled Lungs: Clear to Auscultation, Normal Air Movement Abdomen: Normal Bowel Sounds, Soft, No Tenderness Extremities: No Edema Vascular: Normal Pulses Current Medications: Current Medications Sig/Tena Start time Last Medication Dose Route Stop Time Status Admin Acetaminophen 0 .STK-MED ONE 03/28 1305 DC IV Acetaminophen 650 MG Q6P PRN 03/28 1300 AC 03/29 PO 0945 Acetaminophen 1,000 MG ONCE ONE 03/28 1300 DC 03/28 N/A 1 UNIT IV 03/28 1314 1304 Docusate Sodium 100 MG BID 03/29 1024 AC PO Furosemide 40 MG DAILY 03/29 1000 AC 03/29 PO 0945 Heparin Sodium 5,000 UNIT Q8 03/28 2200 AC 03/29 (Porcine) SC 03/29 2300 0552 Ketorolac 15 MG Q6P PRN 03/28 1300 AC 03/29 Tromethamine IV 04/02 1259 1119 Levothyroxine Sodium 0.175 MG DAILY AC 03/29 0700 AC 03/29 PO 0552 Losartan Potassium 25 MG DAILY 03/29 1000 AC 03/29 PO 0946 Metoprolol Succinate 50 MG DAILY 03/29 1000 AC 03/29 PO 0946 Morphine Sulfate 2 MG Q6P PRN 03/29 1030 CAN IV Morphine Sulfate 10 MG .STK-MED ONE 03/29 0011 DC IM 03/29 0012 Morphine Sulfate 1 MG ONCE ONE 03/28 2345 DC 03/29 IV 03/28 2346 0013 Morphine Sulfate 2 MG Q6P PRN 03/28 1415 AC 03/28 IV 2048 Morphine Sulfate 2 MG ONCE ONE 03/28 1215 DC 03/28 IV 03/28 1216 1218 Morphine Sulfate 0 .STK-MED ONE 03/28 1152 DC .ROUTE Oxycodone/ 2 TAB Q6P PRN 03/28 1300 DC Acetaminophen PO Paroxetine HCl 40 MG DAILY 03/29 1000 AC 03/29 PO 0945 Polyethylene Glycol 17 GM DAILY 03/29 1024 AC PO Pravastatin Sodium 10 MG 1700 03/29 1700 AC PO Senna 187 MG AT BEDTIME 03/29 2200 AC PO Last 24 Hrs of Lab/Erik Results Last 24 Hrs of Labs/Mics: Laboratory Tests 03/29/17 0620: Anion Gap 9, Estimated GFR > 60, BUN/Creatinine Ratio 20.0, CBC w Diff NO MAN DIFF REQ, RBC 3.88 L, MCV 98.6, MCH 33.2 H, RDW 13.9, MPV 9.3, Gran % 56.7, Lymphocytes % 29.3, Monocytes % 10.6 H, Eosinophils % 2.8, Basophils % 0.6, Absolute Granulocytes 3.8, Absolute Lymphocytes 2.0, Absolute Monocytes 0.7 H, Absolute Eosinophils 0.2, Absolute Basophils 0, PUBS MCHC 33.7 Microbiology 03/28 1225 URINE ROUT: Urine Culture - RES Assessment/Plan Assessment: 81-year-old with PMH of atrial fibrillation on pradaxa, sick sinus s/p pacemaker, hypothyroidism, oxygen dependent COPD, pulmonary hypertension. # Left intertrochanteric fracture - last pradaxa taken 03/28 am * bowel regimen miralax senna colace * pain control tylenol po 650 q6p, toradol iv 15 q6p, morphine 1 mg q6p * plan for surgery with Dr. Moore 03/30/17 * hold pradaxa before surgery, no need for heparin bridging * sc heparin to be discontinued after tonight's dose, will resume pradaxa after surgery * appreciate cardio (Dr Raheel Mejia) and ortho input * continue de luna * PT after surgery # Atrial fibrillation on pradaxa, sick sinus s/p pacemaker, hypothyroidism, oxygen dependent COPD * continue home meds pravachol, paxil, metoprolol, losartan, lasix, synthroid Diet: heart healthy DVT prophylaxis with S/q Heaprin FC Problem List: 1. Intertrochanteric fracture of left hip Pain Ratin Pain Location: none Pain Goal: Pain 4 or less Pain Plan: morphine toradol Tomorrow's Labs & Rationales: cbc and bep pre op DVT/Prophylaxis: mechanical, pharmacological LEONARD JOHNSON 03/29/17 1107: Attending MD Review Statement Attending Statement Attending MD Statement: examined this patient, discuss w/resident/PA/CLAY BURNER, agreed w/resident/PA/CLAY BURNER, discussed with family, reviewed EMR data (avail), discussed with nursing, discussed with case mgmt, reviewed images, amended to note Attending Assessment/Plan: Patient being admitted for left hip fracture for repair. Pain control, held pradaxa, orthopedics and cardiology consulted, gi/dvt prophyalxis, full code plan of care d/wed patient and family bedside. Patient medically stable for procedure. Cardiology and ortho f/u for a/c resume as soon as possible.
[2017-03-29 07:04] VITALS: BP 110/60
[2017-03-29 08:13] LABS: ABSOLUTE BASOPHIL COUNT 0 /CUMM (0.0-0.2); ABSOLUTE EOSINOPHIL COUNT 0.2 /CUMM (0.0-0.7); ABSOLUTE GRANULOCYTE CT 3.8 /CUMM (1.4-6.5); ABSOLUTE MONOCYTE COUNT 0.7 /CUMM (0.10-0.60); BASOPHIL % 0.6 % (0.0-2.0); EOSINOPHIL % 2.8 % (0-5); GRANULOCYTE % 56.7 % (42.2-75.2); MEAN CORPUSCULAR HGB 33.2 PG (27.0-31.0); MEAN CORPUSCULAR HGB CONC 33.7 G/DL (33.0-37.0); MEAN CORPUSCULAR VOLUME 98.6 FL (81.0-99.0); MEAN PLATELET VOLUME 9.3 FL (7.4-10.4); PLATELET COUNT 177 /CUMM (130-400); RBC DISTRIBUTION WIDTH 13.9 % (11.5-14.5); RED BLOOD CELL CT 3.88 /CUMM (4.20-5.40); WHITE BLOOD CELL COUNT 6.7 /CUMM (4.8-10.8)
--- NOTE | 2017-03-29 08:17 | PN- Orthopedic ---
Subjective Subjective: No known left hip pain unless she moves Objective Vital Signs and I&Os Vital Signs Date Time Temp Pulse Resp B/P B/P Pulse O2 O2 Flow FiO2 Mean Ox Delivery Rate 03/29 0704 97.9 73 20 110/60 90 03/28 2236 98.8 61 20 112/60 90 Room Air 03/28 1457 97.5 89 20 122/80 98 03/28 1402 84 18 140/74 93 Room Air 03/28 1218 98.4 78 18 162/70 93 Room Air 03/28 1040 93 03/28 1013 97.9 85 20 178/107 93 Room Air Intake & Output 03/29 1600 03/29 0800 03/29 0000 03/28 1600 03/28 0800 03/28 0000 Intake Total 240 10 Output Total 350 350 250 Balance -110 -350 -240 Intake, IV 10 Intake, Oral 240 Output, Urine 350 350 250 Patient 226 lb Weight Weight Reported by Patient Measurement Method Physical Exam: Well-developed well-nourished no apparent distress. HEENT: Atraumatic, Respiratory: No respiratory distress Extremities: No edema, no calf pain. left lower extremity shortened and rotated externally. Neurovascularly intact distally Neuro: Alert and oriented x3 Psych: Mood affect normal, normal memory normal judgment. Skin: Warm and dry, no rash on exposed skin Assessment/Plan Assessment/Plan Left hip intertrochanteric fracture, requires IM nailing. Per medicine and cardiology, would ideally wait until tomorrow due to Pradaxa, otherwise she is cleared. Plan for surgery tomorrow, discussed with patient, understands and agrees with plan, nothing by mouth after midnight. Core Measures/Miscellaneous Venous Thromboembolism VTE Risk Factors: Age > 40, Surgery VTE Contraindications: No Contraindications (-currently pre op) VTE Diagnosis: No VTE Type: NONE VTE Confirmed by (Test): NONE Beta Zhou Is Beta Zhou a Home Med? No Antibiotics Is Patient on Antibiotics? No
--- NOTE | 2017-03-29 08:31 | Cons- Cardiology ---
General Information and HPI Consulting Request Date of Consult: 03/29/17 Requested By: LEONARD JOHNSON MD Reason for Consult: Preop cardiac clearace for left hip repair. Source of Information: patient, old records Exam Limitations: no limitations History of Present Illness: THIS IS A 81-year-old woman with a past medical history of chronic atrial fibrillation (anticoagulated with Pradaxa), sick sinus syndrome, status post pacemaker implantation 2 years back, hypothyroidism and COPD on home oxygen as weLL all, pulmonary hypertension with RV pressures greater than 50 on the last echo in 2015, who presented to the [facility] after she had a mechanical fall while trying to ambulate with her walker. As per the patient she was trying to get out of the bed and her walker caught tangled in the oxygen tubing(FOR her ). The patient slightly twisted her leg and landed up on her left hip. The patient never lost consciousness, denied any dizziness, palpitations, chest pain prior to the fall. The above HPI was obtained by the admitting medical personnel. Patient confirms the above. She denies any chest pains or unusual shortness of breath over the past 2 weeks. 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 She has chronic neck pain related to a fall but this is continuous and related more to cervical injury. Allergies/Medications Allergies: Coded Allergies: coconut oil (ITCHING ALL OVER 07/31/16) codeine ("MY BP GOES WAY DOWN" 07/31/16) Home Med List: Dabigatran Etexilate Mesylate (Pradaxa 150 MG) 150 MG CAPSULE 1 CAP PO BID BLOOD THINNER (Reported) Furosemide 40 MG TABLET 1 TAB PO DAILY CHF (Reported) Levothyroxine Sodium (Synthroid) 175 MCG TABLET 1 TAB PO DAILY AC THYROID ( Reported) Losartan Potassium (Cozaar) 25 MG TABLET 1 TAB PO DAILY BP (Reported) Metoprolol Succinate 50 MG TAB.ER.24H 1 TAB PO DAILY BP (Reported) Multivitamin (Multi-Day Vitamins) 1 EACH TABLET 1 TAB PO DAILY SUPPLEMENT ( Reported) Paroxetine HCl 40 MG TABLET 1 TAB PO DAILY DEPRESSION (Reported) Pravastatin Sodium 10 MG TABLET 1 TAB PO DAILY CHOLESTEROL (Reported) Vit A,C & E/Lutein/Minerals (Ocuvite With Lutein Tablet) 1 EACH TABLET 1 TAB PO DAILY SUPPLEMENT (Reported) Current Medications: Current Medications Sig/Tena Start time Last Medication Dose Route Stop Time Status Admin Acetaminophen 0 .STK-MED ONE 03/28 1305 DC IV Acetaminophen 650 MG Q6P PRN 03/28 1300 AC 03/28 PO 1957 Acetaminophen 1,000 MG ONCE ONE 03/28 1300 DC 03/28 N/A 1 UNIT IV 03/28 1314 1304 Furosemide 40 MG DAILY 03/29 1000 AC PO Heparin Sodium 5,000 UNIT Q8 03/28 2200 AC 03/29 (Porcine) SC 0552 Ketorolac 15 MG Q6P PRN 03/28 1300 AC 03/28 Tromethamine IV 04/02 1259 2234 Levothyroxine Sodium 0.175 MG DAILY AC 03/29 0700 AC 03/29 PO 0552 Losartan Potassium 25 MG DAILY 03/29 1000 AC PO Metoprolol Succinate 50 MG DAILY 03/29 1000 AC PO Morphine Sulfate 1 MG ONCE ONE 03/28 2345 DC 03/29 IV 03/28 2346 0013 Morphine Sulfate 2 MG Q6P PRN 03/28 1415 AC 03/28 IV 2048 Morphine Sulfate 2 MG ONCE ONE 03/28 1215 DC 03/28 IV 03/28 1216 1218 Morphine Sulfate 0 .STK-MED ONE 03/28 1152 DC .ROUTE Morphine Sulfate 1 MG ONCE ONE 03/28 1145 DC 03/28 IV 03/28 1146 1216 Morphine Sulfate 2 MG ONCE ONE 03/28 1030 DC 03/28 IV 03/28 1031 1039 Oxycodone/ 2 TAB Q6P PRN 03/28 1300 DC Acetaminophen PO Paroxetine HCl 40 MG DAILY 03/29 1000 AC PO Pravastatin Sodium 10 MG 1700 03/29 1700 AC PO Review of Systems Review of Systems Constitutional: Denies: no symptoms. Cardiovascular: Denies: no symptoms. Respiratory: Reports: see HPI. GI: Denies: no symptoms. Genitourinary: Denies: no symptoms. Musculoskeletal: Reports: neck pain. Skin: Denies: no symptoms. Neurological/Psychological: Denies: no symptoms. Hematologic/Endocrine: Denies: no symptoms. Immunologic/Allergic: Denies: no symptoms. Past History Travel History Traveled to [place] past 21 day No Medical History Blood Transfusion Hx: No Neurological: NONE EENT: NONE Cardiovascular: AFIB, CHF, hypertension, hyperlipidemia, PACEMAKER CAROTID STENTS PER PT PACEMAKER pulmonary htn Respiratory: COPD Gastrointestinal: NONE Hepatic: NONE Renal: NONE Musculoskeletal: NONE Psychiatric: NONE Endocrine: NONE Blood Disorders: NONE Cancer(s): breast cancer HEAD CHEF/Reproductive: NONE Surgical History Surgical History: none (Right CEA/ Appendectomy and ch), STAUS POST THYROIDECTOMY s/p left ankle orif Family History Relations & Conditions If Any: FATHER, . SISTER MOTHER MOTHER Relation not specified for: FH: CHF (congestive heart failure) FH: hypertension FH: kidney disease Psychosocial History Services at Home: None Primary Language: Upper Sorbian Smoking Status: Never Smoked ETOH Use: occasional use Functional Ability Ambulation: walker ECHO Results (as available) Date of last Echo 03/22/16 Report: Normal left ventricle systolic function with ejection fraction greater than 55%. Moderate biatrial enlargement. Moderate mitral regurgitation posteriorly directed. Right ventricular systolic pressure of 38 mmHg. Exam & Diagnostic Data Vital Signs and I&O Vital Signs Date Time Temp Pulse Resp B/P B/P Pulse O2 O2 Flow FiO2 Mean Ox Delivery Rate 03/29 0704 97.9 73 20 110/60 90 03/28 2236 98.8 61 20 112/60 90 Room Air 03/28 1457 97.5 89 20 122/80 98 03/28 1402 84 18 140/74 93 Room Air 03/28 1218 98.4 78 18 162/70 93 Room Air 03/28 1040 93 03/28 1013 97.9 85 20 178/107 93 Room Air Intake & Output 03/29 1600 03/29 0800 03/29 0000 03/28 1600 03/28 0800 03/28 0000 Intake Total 240 10 Output Total 350 350 250 Balance -110 -350 -240 Intake, IV 10 Intake, Oral 240 Output, Urine 350 350 250 Patient 226 lb Weight Weight Reported by Patient Measurement Method Physical Exam: General exam patient was comfortable lying in bed. Head normocephalic atraumatic Eyes sclera anicteric conjunctiva showed no pallor extraocular muscles were normal Neck no jugular venous distention. Right carotid endarterectomy scar noted Chest lungs were clear bilaterally Heart regular rhythm without murmurs. S2 was physiologically split Abdomen, soft nontender no organomegaly scars of previous surgery noted Extremities no clubbing cyanosis. Significant varicosities bilaterally. No calf tenderness. Neurological no gross motor or sensory deficits Labs/Erik Results: Laboratory Tests 03/29 03/28 0620 1030 Chemistry Sodium (137 - 145 mmol/L) Pending 137 Potassium (3.5 - 5.1 mmol/L) Pending 4.1 Chloride (98 - 107 mmol/L) Pending 96 L Carbon Dioxide (22 - 30 mmol/L) Pending 30 Anion Gap (5 - 16) Pending 11 BUN (7 - 17 mg/dL) Pending 13 Creatinine (0.5 - 1.0 mg/dL) Pending 0.6 Estimated GFR (>60 ml/min) > 60 BUN/Creatinine Ratio (7 - 25 %) Pending 21.7 Glucose (65 - 99 mg/dL) 104 H Calcium (8.4 - 10.2 mg/dL) 9.5 Total Bilirubin (0.2 - 1.3 mg/dL) 0.7 AST (14 - 36 U/L) 32 ALT (9 - 52 U/L) 34 Alkaline Phosphatase (<127 U/L) 101 Troponin I (< 0.11 ng/ml) < 0.01 Total Protein (6.3 - 8.2 g/dL) 7.2 Albumin (3.5 - 5.0 g/dL) 4.0 Globulin (1.9 - 4.2 gm/dL) 3.2 Albumin/Globulin Ratio (1.1 - 2.2 %) 1.3 Coagulation PT (9.4 - 12.5 SEC) 13.5 H INR (0.90 - 1.19) 1.29 H APTT (25 - 37 SEC) 51 H Hematology CBC w Diff Pending NO MAN DIFF REQ WBC (4.8 - 10.8 /CUMM) Pending 7.2 RBC (4.20 - 5.40 /CUMM) Pending 4.48 Hgb (12.0 - 16.0 G/DL) Pending 14.7 Hct (37 - 47 %) Pending 43.9 MCV (81.0 - 99.0 FL) Pending 98.1 MCH (27.0 - 31.0 PG) Pending 32.9 H RDW (11.5 - 14.5 %) Pending 14.0 Plt Count (130 - 400 /CUMM) Pending 201 MPV (7.4 - 10.4 FL) Pending 8.9 Gran % (42.2 - 75.2 %) 58.8 Lymphocytes % (20.5 - 51.1 %) 26.7 Monocytes % (1.7 - 9.3 %) 10.8 H Eosinophils % (0 - 5 %) 3.4 Basophils % (0.0 - 2.0 %) 0.3 Absolute Granulocytes (1.4 - 6.5 /CUMM) 4.2 Absolute Lymphocytes (1.2 - 3.4 /CUMM) 1.9 Absolute Monocytes (0.10 - 0.60 /CUMM) 0.8 H Absolute Eosinophils (0.0 - 0.7 /CUMM) 0.2 Absolute Basophils (0.0 - 0.2 /CUMM) 0 PUBS MCHC (33.0 - 37.0 G/DL) Pending 33.5 Diagnostic Data EKG Results Underlying atrial fibrillation. Ventricular paced rhythm with VVI mode. CXR Results MPRESSION: - Cardiomegaly without pulmonary edema. - No acute cardiopulmonary disease compared to 08/10/2016 Assessment/Plan Assessment/Plan In summary this 81-year-old female was admitted with a fracture of the left hip related to a mechanical fall. Cardiac clearance was suggested. She has the following problems #1. Persistent atrial fibrillation with advanced AV block and insertion of a permanent pacemaker. #2. On oral anticoagulation with thrombin inhibitor therapy Dabigratan. #3. Hypertension #4. Hyperlipidemia #5. Status post stenting of an aortic aneurysm #6. Right carotid artery stenting #7. Varicose veins #8. Previous history of diastolic congestive heart failure #9. Moderate mitral regurgitation with normal left ventricle ejection fraction and right ventricle systolic pressure of 38 mm mini mercury on last echocardiogram done March 2016. Lexiscan nuclear stress test was performed in 2013 that was negative for ischemia with left ventricular ejection fraction of 54% Based on her satisfactory cardiac functional capacity, normal chest x-ray not showing evidence of congestive heart failure, satisfactory vital signs, she is cleared with average cardiac risk to proceed with left hip repair. She's currently on Pradaxa and this is to be withheld at least 48 hours prior to surgery. Please do not go by PT INR as this is always elevated with the usage of Pradaxa. After surgery reinitiation of Pradaxa may be done when it is appropriate from a bleeding standpoint and from an orthopedic standpoint. However this patient has a high CHADSVASC score of 6-7, and I would reinitiate her anticoagulation as soon as possible after surgery. Bridging with heparin is not necessary as the half life of Lovenox and Pradaxa about the same. Consult Acknowledgment - Thank you for your consult request.
[2017-03-29 10:27] LABS: HEMATOCRIT 38.2 % (37-47)
[2017-03-29 14:20] VITALS: BP 110/60
[2017-03-29 22:38] VITALS: BP 112/60
[2017-03-30 06:26] VITALS: BP 108/60
[2017-03-30 07:43] LABS: ABSOLUTE BASOPHIL COUNT 0 /CUMM (0.0-0.2); ABSOLUTE EOSINOPHIL COUNT 0.3 /CUMM (0.0-0.7); ABSOLUTE GRANULOCYTE CT 4.7 /CUMM (1.4-6.5); ABSOLUTE LYMPH COUNT 2.1 /CUMM (1.2-3.4); ABSOLUTE MONOCYTE COUNT 0.8 /CUMM (0.10-0.60); BASOPHIL % 0.5 % (0.0-2.0); EOSINOPHIL % 3.4 % (0-5); GRANULOCYTE % 58.8 % (42.2-75.2); HEMATOCRIT 34.1 % (37-47); MEAN CORPUSCULAR HGB 33.1 PG (27.0-31.0); MEAN CORPUSCULAR HGB CONC 33.6 G/DL (33.0-37.0); MEAN CORPUSCULAR VOLUME 98.5 FL (81.0-99.0); PLATELET COUNT 155 /CUMM (130-400); RBC DISTRIBUTION WIDTH 13.8 % (11.5-14.5); RED BLOOD CELL CT 3.46 /CUMM (4.20-5.40)
--- NOTE | 2017-03-30 08:03 | PN- Housestaff ---
SOFIA DE JESUS,ORION 03/30/17 0802: Subjective Follow-up For: hip fracture Subjective: pt was seen today, was comfortably sleeping, no complaints. later in the morning, nurse told me her sat of 80% on ra, she was then placed on 2l o2 nc and she then sat 94%, in no respiratory distress plan to go to or at 130pm today. will resume pradaxa and PT based on surgery recc. last bm was sunday Review of Systems Constitutional: Reports: see HPI. Objective Last 24 Hrs of Vital Signs/I&O Vital Signs Date Time Temp Pulse Resp B/P B/P Pulse O2 O2 Flow FiO2 Mean Ox Delivery Rate 03/30 1116 Nasal 2.0L Cannula 03/30 1034 Room Air 03/30 1031 Room Air 03/30 0924 70 110/70 03/30 0924 70 110/70 03/30 0626 98.2 62 20 108/60 94 Room Air 03/29 2238 98.9 68 20 112/60 90 Room Air 03/29 1533 Room Air 03/29 1420 97.8 75 20 110/60 93 Intake & Output 03/30 1600 03/30 0800 03/30 0000 Intake Total 20 260 Output Total 250 1150 Balance -230 -890 Intake, IV 20 20 Intake, Oral 240 Output, Urine 250 1150 Physical Exam General Appearance: Alert, Oriented X3, Cooperative, No Acute Distress Cardiovascular: irregularly irregular rate Lungs: Clear to Auscultation, Normal Air Movement Abdomen: Normal Bowel Sounds, Soft, No Tenderness Extremities: No Edema Current Medications: Current Medications Sig/Tena Start time Last Medication Dose Route Stop Time Status Admin Acetaminophen 650 MG Q6P PRN 03/28 1300 AC 03/29 PO 0945 Docusate Sodium 100 MG BID 03/29 1024 AC 03/30 PO 0921 Fluticasone 2 SPRAY DAILY 03/29 1530 AC 03/30 Propionate JERRY 0924 Furosemide 40 MG DAILY 03/29 1000 AC 03/30 PO 0921 Heparin Sodium 5,000 UNIT Q8 03/28 2200 DC 03/29 (Porcine) SC 03/29 230 2122 Ketorolac 15 MG Q6P PRN 03/28 1300 AC 03/30 Tromethamine IV 04/02 1259 1235 Levothyroxine Sodium 0.175 MG DAILY AC 03/29 0700 AC 03/30 PO 0921 Losartan Potassium 25 MG DAILY 03/29 1000 AC 03/30 PO 0924 Metoprolol Succinate 50 MG DAILY 03/29 1000 AC 03/30 PO 0924 Morphine Sulfate 2 MG ONCE ONE 03/30 0145 DC 03/30 IV 03/30 0146 0138 Morphine Sulfate 2 MG Q6P PRN 03/28 1415 AC 03/29 IV 2122 Paroxetine HCl 40 MG DAILY 03/29 1000 AC 03/30 PO 0921 Patient Medication 1 ED .STK-MED ONE 03/29 1436 PR Teaching ED 03/29 1437 Polyethylene Glycol 17 GM DAILY 03/29 1024 AC 03/29 PO 1234 Pravastatin Sodium 10 MG 1700 03/29 1700 AC 03/29 PO 1743 Senna 187 MG AT BEDTIME 03/29 2200 AC 03/29 PO 2122 Sodium Chloride 1,000 ML Q13H 03/30 0815 AC 03/30 IV 03/30 2114 0920 Last 24 Hrs of Lab/Erik Results Last 24 Hrs of Labs/Mics: Laboratory Tests 03/30/17 0610: Anion Gap 7, Estimated GFR > 60, BUN/Creatinine Ratio 20.0, CBC w Diff NO MAN DIFF REQ, RBC 3.46 L, MCV 98.5, MCH 33.1 H, RDW 13.8, MPV 9.0, Gran % 58.8, Lymphocytes % 26.8, Monocytes % 10.5 H, Eosinophils % 3.4, Basophils % 0.5, Absolute Granulocytes 4.7, Absolute Lymphocytes 2.1, Absolute Monocytes 0.8 H, Absolute Eosinophils 0.3, Absolute Basophils 0, PUBS MCHC 33.6 Assessment/Plan Assessment: 81-year-old with PMH of atrial fibrillation on pradaxa, sick sinus s/p pacemaker, hypothyroidism, NONoxygen dependent COPD, pulmonary hypertension. # Left intertrochanteric fracture - last pradaxa taken prior to admision 03/28 am - pradaxa was held for 24 hrs prior to surgery, no heparin bridging as per cardio * bowel regimen miralax senna colace * pain control tylenol po 650 q6p, toradol iv 15 q6p, morphine 1 mg q6p * plan for surgery with Dr. Moore 03/30/17 at 130pm * will resume pradaxa after surgery based on surgery and cardio recc * appreciate cardio (Dr Raheel Mejia) and ortho input * continue de luna * PT after surgery * incentive spirometry and trc # Atrial fibrillation on pradaxa, sick sinus s/p pacemaker, hypothyroidism, NON oxygen dependent COPD * continue home meds pravachol, paxil, metoprolol, losartan, lasix, synthroid Diet: heart healthy DVT prophylaxis with S/q Heaprin FC Problem List: 1. Intertrochanteric fracture of left hip Pain Ratin Pain Location: none Pain Goal: Remain pain free Pain Plan: mild pp Tomorrow's Labs & Rationales: cbc and bep post op DVT/Prophylaxis: mechanical, pharmacological ELIZABETHLEONARD 03/30/17 1105: Attending MD Review Statement Attending Statement Attending MD Statement: examined this patient, discuss w/resident/PA/COMMERCIAL PEST CONTROL REPRESENTATIVE, agreed w/resident/PA/COMMERCIAL PEST CONTROL REPRESENTATIVE, discussed with family, reviewed EMR data (avail), discussed with nursing, discussed with case mgmt, reviewed images, amended to note Attending Assessment/Plan: Patient being admitted for left hip fracture for repair. Pain control, held pradaxa, orthopedics and cardiology consulted, gi/dvt prophyalxis, full code plan of care d/wed patient and family bedside. Patient medically stable for procedure. Cardiology and ortho f/u for a/c resume as soon as possible. PLAN for OR today as per ortho.
[2017-03-30] MEDS ORDERED: DOCUSATE SODIU100 M3 PO (13:45)
[2017-03-30] MEDS ORDERED: MIRALAX17 G1 PO (13:45)
[2017-03-30] MEDS ORDERED: SENNA8.6 M3 PO (13:46)
--- NOTE | 2017-03-30 13:50 | Patient Discharge Instructions ---
Discharge Instructions General Discharge Information You were seen/treated for: Hip fracture Special Instructions: - Please follow up with PCP in 1 week - Monitor for bleeeding around the surgical site. Check CBC as needed. - Surgical clips should be removed on postoperative day #15 (April 16, 2017) and the incision being reinforced with Steri-Strips - The patient should follow-up in the orthopedist' office in approximately 3 weeks - Out of bed to chair with physical therapy patient is toe-touch weightbearing only - Warm compresses to right upper extremity - Incentive spirometry - Daily dry dressing change to surgical site Diet Continue normal diet: Yes Recommended Diet: Heart Healthy Acute Coronary Syndrome Inclusion Criteria At DC or during hospital stay patient has or had the following: ACS DIAGNOSIS No Discharge Core Measures Meds if any: Prescribed or Continued at Discharge Meds if any: NOT Prescribed or Continued at Discharge Congestive Heart Failure Inclusion Criteria At DC or during hospital stay patient has or had the following: CHF DIAGNOSIS No Discharge Core Measures Meds if any: Prescribed or Continued at Discharge Meds if any: NOT Prescribed or Continued at Discharge Cerebrovascular accident Inclusion Criteria At DC or during hospital stay patient has or had the following: CVA/TIA Diagnosis No Discharge Core Measures Meds if any: Prescribed or Continued at Discharge Meds if any: NOT Prescribed or Continued at Discharge Venous thromboembolism Inclusion Criteria VTE Diagnosis No VTE Type NONE VTE Confirmed by (Test) NONE Discharge Core Measures - Per Current guidelines, there needs to be overlap - treatment for the first 5 days of Warfarin therapy. - If discharged on Warfarin prior to 5 days of - overlap therapy, the patient will need to be - assessed for post discharge needs including - *Post discharge parental anticoagulation - *Warfarin and/or parental anticoagulation education - *Follow up date to check INR post discharge At least 5 days overlap therapy as Inpatient No Meds if any: Prescribed or Continued at Discharge Note: Overlap Therapy is Warfarin and Anticoagulant Meds if any: NOT Prescribed or Continued at Discharge
[2017-03-30 14:41] VITALS: BP 134/82
[2017-03-30 21:43] LABS: ABSOLUTE BASOPHIL COUNT 0 /CUMM (0.0-0.2); ABSOLUTE EOSINOPHIL COUNT 0 /CUMM (0.0-0.7); ABSOLUTE GRANULOCYTE CT 13.4 /CUMM (1.4-6.5); ABSOLUTE LYMPH COUNT 1.2 /CUMM (1.2-3.4); ABSOLUTE MONOCYTE COUNT 0.7 /CUMM (0.10-0.60); BASOPHIL % 0.2 % (0.0-2.0); EOSINOPHIL % 0.1 % (0-5); MEAN CORPUSCULAR HGB 32.4 PG (27.0-31.0); MEAN CORPUSCULAR HGB CONC 33.8 G/DL (33.0-37.0); MEAN CORPUSCULAR VOLUME 95.9 FL (81.0-99.0); MEAN PLATELET VOLUME 8.9 FL (7.4-10.4); PLATELET COUNT 145 /CUMM (130-400); RBC DISTRIBUTION WIDTH 15.6 % (11.5-14.5)
[2017-03-30 21:44] LABS: RED BLOOD CELL CT 4.38 /CUMM (4.20-5.40); WHITE BLOOD CELL COUNT 15.3 /CUMM (4.8-10.8)
[2017-03-30 21:45] LABS: HEMATOCRIT 41.9 % (37-47)
--- NOTE | 2017-03-30 22:21 | Operative Report ---
Operative/Inv Procedure Report Surgery Date: 03/30/17 Name of Procedure: Repair left comminuted intertrochanteric-subtrochanteric proximal femur fracture with long cephalo-medullary nail. Pre-Operative Diagnosis: Comminuted left proximal femoral intertrochanteric-subtrochanteric fracture. Post-Operative Diagnosis: Same. Estimated Blood Loss: 1000 cc Surgeon/Paper Core Machine Operator: Kat BRANTLEY/ Kat PARKER Anesthesia: general endotracheal tube Monitors: EKG/blood pressure/oxygen saturation IV Fluids: 700 mL crystalloid +3 units packed red blood cells. Implants: Ledbetter [employer] Nephew left long Trigen Intertan nail components: 1) 11.5 mm diameter X 36 cm length 130 Intertan nail 2) Trigen Intertan 105/100 mm integrated compression screws 3) 5 mm diameter distal locking bolts x 2. Urine Output: 400 mL. Drains: None. Specimens: None. Microbiology: None. Tourniquet: None. Complications: None known. Condition: Stable. Operative Indication: The patient is an 81-year-old female who sustained a mechanical trip and fall while walking with her walker, tripping over her 's oxygen line sustaining a displaced unstable comminuted left proximal femur fracture. The patient was admitted to the hospital initially to the medical service. She was medically evaluated and optimized and ultimately cleared for surgery. We did need to hold off on moving forward with surgery due to use of anticoagulant medication. We planned on surgical intervention today and the patient remained stable during her workup on the medical service and we were able to ultimately proceed with surgery as planned today. The risks and benefits and expected outcomes of nonoperative management of the patient's fracture were discussed and discouraged. We did discuss the same with respect to surgical intervention with placement of a long cephalo-medullary nail. The patient and her family were advised of the probability based upon the fracture anatomy and location that I would need to open the fracture site directly to get any kind of meaningful fracture reduction for placement of the hardware, including the intramedullary nail component of the cephalo-medullary nail to repair the fracture. All the patient's questions and her family's questions were answered at length. They did wish to move forward with surgery as was recommended for management of the fracture and surgical consent was obtained. Operative/Procedure Note Note: Procedure: The patient was brought to the operating room on her stretcher. Once in the operating room general endotracheal anesthesia was induced on the stretcher. The patient was then transferred to the OR fracture table and initially positioned supine. A dose of IV antibiotics were given for infection prophylaxis. The patient was next positioned on the OR fracture table in standard fashion for left hip trochanteric region repair. This did include placing the perineum down against a very well-padded perineal post. The affected left foot and ankle were placed into the foam padding for the traction boot. The foam padding was then wrapped with Coban to increase friction and to compress the foam padding tightly about the foot and the ankle. The foot and ankle were then secured into the boot of the traction arm of the fracture table. The contralateral unaffected right lower extremity was elevated into a position of flexion and abduction and external rotation through the hip with the extremity supported on the leg in a very well-padded leg virk. The patient's pannus in this case was taped widely with multiple wide strips of tape to pull the pannus out of the operative field. Once the patient was positioned on the OR fracture table the C-arm was brought in and an attempt was made to reduce the proximal femur fracture with manipulation of the extremity distal to the fracture using the traction arm through the traction boot. In this case despite trying varying degrees of longitudinal traction and varying degrees of rotation and varying degrees of hip adduction and abduction through the traction arm all with and without use of a crutch to support the proximal femur I determined I was unable to achieve a satisfactory reduction of the proximal femur fracture. There was definitely comminution in place here and I was unable to reduce the fracture satisfactorily. I therefore made plans to immediately open the subtrochanteric- intertrochanteric region of the proximal femur via a lateral approach with the hopes that I would be able to get a satisfactory reduction of the major fracture fragments with the fracture opened for direct manipulation manually with appropriate retractors and reduction instrumentation. The left lower extremity was then prepped and draped in the usual sterile fashion with prepping proximally above the level of the superior margin of the iliac crest and extending distally to the mid leg. The C-arm was brought in and I used a Jenkins elevator placed over the anterior skin to help localize the level of the tip of the greater trochanter as well as the level of the intertrochanteric and subtrochanteric components of the proximal femur fracture. These were marked on the skin for reference. I next created a longitudinal skin incision more or less initially centered over the subtrochanteric segment of the fracture and approached the bone through a direct lateral approach. This did include incising the skin longitudinally with a scalpel. After that sharp dissection was with deep scalpels. The patient's adipose tissue layer was markedly deep, I would estimate more than 6-7 inches deep. This did make visualization very difficult overall and this did require me to further extend the incision proximally and distally. Retractors were placed progressively deeper as we went along. We eventually encountered the fascia jordyn which was divided longitudinally in line with the skin incision. Retractors were placed deeper area that I did not feel that I would be able to reflect the vastus lateralis muscle in subperiosteal fashion. I therefore went directly sharply through the vastus lateralis muscle with a scalpel. After that I did strip the lateral aspect of the proximal femur with a Jenkins elevator for visualization. I next attempted to gain some control of the major fracture fragments. Unfortunately the fracture proved to be so markedly comminuted with bone that was so markedly frail secondary to osteoporosis that I could not get reduction clamps to hold on the bone without further fragmenting the bone fragments. It became increasingly evident that the fracture was markedly comminuted with involvement of essentially the entire intertrochanteric region of the proximal femur extending up through the tip of the greater trochanter and extending distally to knock off the lesser trochanter. Additional comminuted bone was with a transverse subtrochanteric fracture line. The greater trochanteric fracture was split in coronal and sagittal planes into multiple fragments. The comminution was so extensive that there were multiple loose bone fragments that had been entirely stripped of soft tissue attachments. These bone fragments were removed where possible to give a better chance of reducing the bone and not getting hung up on the bone fragments. In the end there was definitely a moderate degree of bone loss due to the loose bone fragments that needed to be removed. This was in addition to the marked comminution with fracture fragments that were retained. Even with the fracture opened I was unable to achieve satisfactory open reduction of the proximal femur fracture due to the issues above. I therefore decided to try to start the process to place a nail down through the general region of the tip of the greater trochanter. I did definitely understand that I would not be relying on any of the bone of the proximal femur for stabilization of the fracture and instead that the head and neck fracture fragment would be stabilized by the screws in the head and neck as they engaged the intramedullary nail component of the cephalo-medullary nail. With that in mind I did create a separate longitudinal skin incision several centimeters proximal to the level of the tip of the greater trochanter in order to be able to have an angle of attack to place the guidepin and entry reamer and ultimately the nail. We repeated the same process of sharp dissection through the skin and subcutaneous tissues as well as the fascia over the proximal gluteal musculature. After that dissection through the gluteal musculature was bluntly with fingertip dissection. I did palpate the tip of the greater trochanter digitally but again this was completely unstable and markedly comminuted. I attempted to place the guidepin for the entry reamer into the proper position. This proved to be quite difficult once again due to the fracture comminution involving the upper aspect of the greater trochanter as well. In order to facilitate placement of the guidepin I did need ultimately to connect the previously made 2 skin incisions with soft tissue dissection and fascial and muscle dissection together to make one larger wound. I did ultimately place a guidewire for the entry reamer into the general position where I thought we needed to start the reamer. The soft tissue protector was placed down over the guidewire under fluoroscopic control and seated down to the general level of the tip of the greater trochanter. I next ran the entry reamer under fluoroscopic control through the proximal femur. This was almost not necessary at all as the fracture was so comminuted that fracture fragments were spinning out of the way with passage of the entry reamer. The entry reamer and proximal guidepin were removed and we next placed a long ball-tipped guidewire down through the general region of the tip of the greater trochanter as opposed to a distinct opening hole in the tip of the greater trochanter made with the reamer. Under direct visualization I did advance that distally and with manipulation of fracture fragments I was able to pass the guidewire into the proximal femoral shaft and advanced that down the bone to the level of the superior pole of the patella. We did confirm proper intramedullary localization of the ball-tipped guidewire in both AP and lateral planes using the fluoroscope. With the ball-tipped guidewire now in place and advanced distally to the desired depth of penetration I now needed to make an estimate as opposed to a true measurement for the length of the intramedullary nail component of the cephalo- medullary nail. I placed the measuring tool over the ball-tipped guidewire and advanced it down to the region of the tip of the greater trochanter under fluoroscopic control. As best as I can determine I measured what I thought would be a reasonable length of nail to place into the proximal femur. In this case I elected to go with a 36 cm length for the intramedullary nail. I did also anticipate trying to place an 11.5 mm diameter nail so that I could place a slightly larger nail due to the marked instability of the fracture and the patient's overall poor bone quality and morbid obesity. We next reamed the bone in half millimeter increments beginning at a 9 mm reamer and advancing up to a 13 mm diameter under fluoroscopic control in order to ream the bone wide enough to accommodate an 11.5 mm nail. We did encounter reasonably good "chatter" of the medullary bone with the last couple of reamers that were used. We next opened a Ledbetter [employer] Nephew 130 11.5 mm diameter x 36 cm length nail and attached that to the refrigerated company driver handle for the nail. The nail was then advanced down over the guidewire under fluoroscopic control passing through the comminuted trochanteric region and then down into the proximal femoral shaft and then advanced distally until we felt that we had advance the nail to the appropriate depth into the proximal femur based upon the positioning of the holes in the proximal aspect of the nail for placement of the integrated compression screws. I felt that with the intramedullary nail now in place within the distal femur that I would be able to control the distal femur better to get some semblance of reduction or at least reasonable alignment to place the guidewire for the integrated compression screws within the femoral head and neck. At this point as expected this proved to be quite difficult due to the the same issues of bone loss and marked fracture comminution and instability. This proved difficult enough that I did in this case contact one of my partners, Dr. Parker to come in as an extra set of skilled hands to help with placement of this guidewire while simultaneously controlling multiple fracture fragments and the intramedullary shon and the power instruments needed to advance the pin across all of the above. Once Dr. Parker was scrubbed in we simultaneously working together did ultimately place the guidepin for the integrated compression screws up through the guide and through the nail (no lateral cortical bone present in this area whatsoever) and then up into the femoral head and neck advancing the tip of the guidewire to the level of subchondral bone. This did require multiple attempts to get this in optimal position but this was eventually achieved. Once the guidepin for the integrated compression screws was in place in satisfactory position we took a depth gauge measurement for the larger of the 2 integrated compression screws. In this case we elected to go with a 105 mm length compression screw. We reamed out the bone into the femoral head and neck with the power reamer to allow placement of this compression screw. We also placed an anti-rotation fin in position below this major compression screw while the compression screw was advanced over the guidewire. This was done with fluoroscopic control until the compression screw was advanced to the appropriate depth of penetration within the femoral head and neck. We did have reasonably good purchase of the bone within the femoral head and neck by the major compression screw. We next removed the anti-rotation fin and then reamed the channel to allow placement of the smaller of the integrated compression screws. In this can't this was automatically designed as a 100 mm length smaller compression screw. This was advanced into position at a depth of penetration per protocol of 100 mm. We realized that we could not get true compression of the femoral head and neck down to the trochanteric region of the proximal femur with the instrumentation for placement and manipulation of these compression screws due to the bone loss and fracture comminution. We did elect in this case to lock the compression screw into the proximal femur by tightening the set screw from above to create a fixed angle cephalo-medullary nail that would not allow any further compression after the set screw was locked. Once we had achieved the fracture reduction and hardware placement within the proximal femur as best as we felt that we could achieve we turned our attention towards locking the distal end of the nail into the distal femur to prevent rotation through the subtrochanteric fracture site. This was performed using freehand technique with fluoroscopic control using a radiolucent drill system. We ultimately placed 5 mm diameter distal locking bolts 2 to lock the distal end of the nail into the distal end of the femur. We next took final AP and lateral fluoroscopic images of the entire femur from the hip proximally to the knee distally confirming fracture reduction and alignment and length as well as hardware position to all be satisfactory as we could achieve given what we will working with. That being said I did believe that the fracture reduction and alignment and length and hardware position and fixation were reasonably good. At this point our attention was turned to soft tissue closure. By this point we had transfused the patient multiple units of packed red blood cells due to the extensive blood loss. By the end of the case this was a transfusion of 3 units of packed red blood cells. We had also redosed the patient with additional IV antibiotics given the duration of the case with the wounds being open widely. The bone and implant and muscle and soft tissues in general were copiously irrigated with 6 L of saline with bacitracin using the pulsatile lavage system to clean the soft tissues out as best as possible. Once this was accomplished the soft tissue repair consisted of repair of the fascial layer over the vastus lateralis using #1 Vicryl suture material placed in interrupted buried fashion. The subcutaneous tissues were closed in multiple layers to cut down on space. The deeper subcutaneous cutaneous tissue layers were closed with 0 Vicryl suture material also placed in interrupted buried fashion in multiple layers. The most superficial subcutaneous cutaneous tissue layer was approximated using 2-0 Vicryl placed in interrupted buried fashion. The skin margins were then approximated using a skin stapler. The 2 small stab wounds for placement of the distal locking bolts 2 were irrigated and the soft tissue repair consisted only of direct approximation of the superficial subcutaneous tissues using 2-0 Vicryl placed in interrupted buried fashion. The skin margins here were also approximated using a skin stapler. All wounds were copiously irrigated and then dried. Adaptic dressing was placed over the staple lines followed by sterile gauze dressings and abdominal pads which were held in place with paper tape. The radiolucent extension to the table was returned into its position allowing us to take down the well leg from the well leg virk and takedown the affected leg from the traction boot with both lower extremities fully extended on the table. The patient was then awakened from general anesthesia and extubated. She was then transferred to a hospital bed and then brought to the recovery room in stable condition having tolerated the procedure well. Findings: Marked comminution of the entire trochanteric and subtrochanteric region of the proximal femur with multiple large loose bone fragments without soft tissue attachments. 1) Overall acceptable fracture reduction and alignment achieved. 2) Overall acceptable hardware position and fixation achieved. fluoroscopic control using a radiolucent drill system. We ultimately placed 5 mm diameter distal locking bolts 2 to lock the distal end of the nail into the distal end of the femur. We next took final AP and lateral fluoroscopic images of the entire femur from the hip proximally to the knee distally confirming fracture reduction and alignment and length as well as hardware position to all be satisfactory as we could achieve given what we will working with. That being said I did believe that the fracture reduction and alignment and length and hardware position and fixation were reasonably good. At this point our attention was turned to soft tissue closure. By this point we had transfused the patient multiple units of packed red blood cells due to the extensive blood loss. By the end of the case this was a transfusion of 3 units of packed red blood cells. We had also redosed the patient with additional IV antibiotics given the duration of the case with the wounds being open widely. The bone and implant and muscle and soft tissues in general were copiously irrigated with 6 L of saline with bacitracin using the pulsatile lavage system to clean the soft tissues out as best as possible. Once this was accomplished the soft tissue repair consisted of repair of the fascial layer over the vastus lateralis using #1 Vicryl suture material placed in interrupted buried fashion. The subcutaneous tissues were closed in multiple layers to cut down on space. The deeper subcutaneous cutaneous tissue layers were closed with 0 Vicryl suture material also placed in interrupted buried fashion in multiple layers. The most superficial subcutaneous cutaneous tissue layer was approximated using 2-0 Vicryl placed in interrupted buried fashion. The skin margins were then approximated using a skin stapler. The 2 small stab wounds for placement of the distal locking bolts 2 were irrigated and the soft tissue repair consisted only of direct approximation of the superficial subcutaneous tissues using 2-0 Vicryl placed in interrupted buried fashion. The skin margins here were also approximated using a skin stapler. All wounds were copiously irrigated and then dried. Adaptic dressing was placed over the staple lines followed by sterile gauze dressings and abdominal pads which were held in place with paper tape. The radiolucent extension to the table was returned into its position allowing us to take down the well leg from the well leg virk and takedown the affected leg from the traction boot with both lower extremities fully extended on the table. The patient was then awakened from general anesthesia and extubated. She was then transferred to a hospital bed and then brought to the recovery room in stable condition having tolerated the procedure well. Findings: Marked comminution of the entire trochanteric and subtrochanteric region of the proximal femur with multiple large loose bone fragments without soft tissue attachments. 1) Overall acceptable fracture reduction and alignment achieved. 2) Overall acceptable hardware position and fixation achieved.
[2017-03-30 22:35] LABS: GRANULOCYTE % 87.3 % (42.2-75.2)
[2017-03-30 23:00] VITALS: BP 74/40
[2017-03-30 23:28] VITALS: BP 82/40
[2017-03-30 23:29] VITALS: BP 86/49
[2017-03-30 23:30] VITALS: BP 86/42
[2017-03-31] VITALS (7 sets, daily range): BP systolic 80–160; BP diastolic 40–64
--- NOTE | 2017-03-31 00:45 | PN- Orthopedic ---
See Addendum Subjective Subjective: POD #0 s/p IMHS L hip fracture. Pt was found to have an extensive fracture intraoperatively. She received 3u of prbc's for expected anemia due to intraop blood loss. Postop h/h was 14. At this time, pt has returned to [facility] floor. She is still fairly tired, but has no major complaints. She denies pain. Nothing po as of yet due to sedation. She had an episode of hypotension to the 70d-80s systolic and is currently receiving a gentle bolus of 250 NS. Objective Vital Signs and I&Os Vital Signs Date Time Temp Pulse Resp B/P B/P Pulse O2 O2 Flow FiO2 Mean Ox Delivery Rate 03/30 2329 86/49 03/30 2328 70 82/40 97 03/30 1441 99.2 63 20 134/82 96 03/30 1116 Nasal 2.0L Cannula 03/30 1034 Room Air 03/30 1031 Room Air 03/30 0924 70 110/70 03/30 0924 70 110/70 03/30 0626 98.2 62 20 108/60 94 Room Air Intake & Output 03/31 0800 03/31 0000 03/30 1600 03/30 0800 03/30 0000 03/29 1600 Intake Total 450 20 260 730 Output Total 531 214 3509 700 Balance 125 -230 -890 30 Intake, IV 450 20 20 Intake, Oral 240 730 Output, Urine 651 144 1964 700 Physical Exam: General: pt is resting but easily arousable. Ext: L thigh dressing is c/d/i. L foot is cool-warm, hyperpigmented (appears chronic). she is able to move her toes. sensation is intact. Results Last 48 Hours of Labs: Laboratory Tests 03/30 03/30 2130 0610 Chemistry Sodium (137 - 145 mmol/L) 133 L 135 L Potassium (3.5 - 5.1 mmol/L) 4.6 4.4 Chloride (98 - 107 mmol/L) 96 L 97 L Carbon Dioxide (22 - 30 mmol/L) 24 31 H Anion Gap (5 - 16) 13 7 BUN (7 - 17 mg/dL) 15 14 Creatinine (0.5 - 1.0 mg/dL) 1.0 0.7 Estimated GFR (>60 ml/min) 53 L > 60 BUN/Creatinine Ratio (7 - 25 %) 15.0 20.0 Hematology CBC w Diff NO MAN DIFF REQ NO MAN DIFF REQ WBC (4.8 - 10.8 /CUMM) 15.3 H 8.0 RBC (4.20 - 5.40 /CUMM) 4.38 3.46 L Hgb (12.0 - 16.0 G/DL) 14.2 11.4 L Hct (37 - 47 %) 41.9 34.1 L MCV (81.0 - 99.0 FL) 95.9 98.5 MCH (27.0 - 31.0 PG) 32.4 H 33.1 H RDW (11.5 - 14.5 %) 15.6 H 13.8 Plt Count (130 - 400 /CUMM) 145 155 MPV (7.4 - 10.4 FL) 8.9 9.0 Gran % (42.2 - 75.2 %) 87.3 H 58.8 Lymphocytes % (20.5 - 51.1 %) 7.8 L 26.8 Monocytes % (1.7 - 9.3 %) 4.6 10.5 H Eosinophils % (0 - 5 %) 0.1 3.4 Basophils % (0.0 - 2.0 %) 0.2 0.5 Absolute Granulocytes (1.4 - 6.5 /CUMM) 13.4 H 4.7 Absolute Lymphocytes (1.2 - 3.4 /CUMM) 1.2 2.1 Absolute Monocytes (0.10 - 0.60 /CUMM) 0.7 H 0.8 H Absolute Eosinophils (0.0 - 0.7 /CUMM) 0 0.3 Absolute Basophils (0.0 - 0.2 /CUMM) 0 0 PUBS MCHC (33.0 - 37.0 G/DL) 33.8 33.6 05/18 0620 Chemistry Sodium (137 - 145 mmol/L) 133 L Potassium (3.5 - 5.1 mmol/L) 4.0 Chloride (98 - 107 mmol/L) 94 L Carbon Dioxide (22 - 30 mmol/L) 30 Anion Gap (5 - 16) 9 BUN (7 - 17 mg/dL) 14 Creatinine (0.5 - 1.0 mg/dL) 0.7 Estimated GFR (>60 ml/min) > 60 BUN/Creatinine Ratio (7 - 25 %) 20.0 Hematology CBC w Diff NO MAN DIFF REQ WBC (4.8 - 10.8 /CUMM) 6.7 RBC (4.20 - 5.40 /CUMM) 3.88 L Hgb (12.0 - 16.0 G/DL) 12.9 Hct (37 - 47 %) 38.2 MCV (81.0 - 99.0 FL) 98.6 MCH (27.0 - 31.0 PG) 33.2 H RDW (11.5 - 14.5 %) 13.9 Plt Count (130 - 400 /CUMM) 177 MPV (7.4 - 10.4 FL) 9.3 Gran % (42.2 - 75.2 %) 56.7 Lymphocytes % (20.5 - 51.1 %) 29.3 Monocytes % (1.7 - 9.3 %) 10.6 H Eosinophils % (0 - 5 %) 2.8 Basophils % (0.0 - 2.0 %) 0.6 Absolute Granulocytes (1.4 - 6.5 /CUMM) 3.8 Absolute Lymphocytes (1.2 - 3.4 /CUMM) 2.0 Absolute Monocytes (0.10 - 0.60 /CUMM) 0.7 H Absolute Eosinophils (0.0 - 0.7 /CUMM) 0.2 Absolute Basophils (0.0 - 0.2 /CUMM) 0 PUBS MCHC (33.0 - 37.0 G/DL) 33.7 Assessment/Plan Assessment/Plan Pt is an 81 yo F with a hx of afib (on pradaxa), PPM, COPD (on home O2), and htn who is now POD #0 s/p L hip IMHS. Plan: -Pt may mobilize OOB to chair at most with PT. Toe touch weightbearing is her max allowed. She should not ambulate. -Pain control with morphine if needed and if BP is stable. Otherwise, consider IV APAP. Would hold NSAIDs for now. -DVT ppx with pradaxa. Dr. Mayorga asked for Coumadin, but the medical team confirmed that pradaxa would provide adequate coverage for DVT ppx, so this will be started as long as there are no major signs of bleeding. -Repeat labs in AM. -Dry dressing change on POD #2. -Bowel regimen with senna, colace, miralax. -Medical management per primary team.
--- NOTE | 2017-03-31 05:19 | PN- Housestaff ---
See Addendum Subjective Follow-up For: Lt Hip Fx Subjective: Pt seen and examined. s/p IMHS. Received 3 U PRBC in the OR. Had episode of hypotension and received 250 CC IV bolus. Offers no specific complaints. Denies chest pain, shortness of breath, nausea, vomiting, dizziness, lightheadedness, abdominal pain, urinary symptoms. VSS. BP 108/58 Review of Systems Constitutional: Reports: no symptoms. Objective Last 24 Hrs of Vital Signs/I&O Vital Signs Date Time Temp Pulse Resp B/P B/P Pulse O2 O2 Flow FiO2 Mean Ox Delivery Rate 03/31 0459 108/58 03/31 0352 80 80/40 03/31 0133 104/64 03/31 0000 80 92/62 03/31 0000 96 Nasal 3.0L Cannula 03/30 2330 82 86/42 03/30 2329 86/49 03/30 2328 70 82/40 97 03/30 2300 97.7 84 18 74/40 95 Nasal 3.0L Cannula 03/30 1441 99.2 63 20 134/82 96 03/30 1116 Nasal 2.0L Cannula 03/30 1034 Room Air 03/30 1031 Room Air 03/30 0924 70 110/70 03/30 0924 70 110/70 03/30 0626 98.2 62 20 108/60 94 Room Air Intake & Output 03/31 0800 03/31 0000 03/30 1600 Intake Total 600 450 Output Total 325 Balance 600 125 Intake, IV 600 450 Intake, Oral 0 Output, Urine 325 Physical Exam General Appearance: Alert Skin: No Significant Lesion HEENT: Atraumatic, PERRLA, EOMI, Mucous Membr. moist/pink Neck: Supple Cardiovascular: Regular Rate, Normal S1, Normal S2, No Murmurs Lungs: Clear to Auscultation, Normal Air Movement Abdomen: Normal Bowel Sounds, Soft, No Tenderness, No Hepatospenomegaly Extremities: No Clubbing, No Cyanosis, No Edema Vascular: Normal Pulses, Pulses Symmetrical Current Medications: Current Medications Sig/Tena Start time Last Medication Dose Route Stop Time Status Admin Acetaminophen 1,000 MG .STK-MED ONE 03/30 1447 DC IV 03/30 1448 Acetaminophen 650 MG Q6P PRN 03/28 1300 DC 03/29 PO 0945 Cefazolin Sodium 3,000 MG Q8H 03/31 0300 AC 03/31 Sodium Chloride 100 ML IV 03/31 1159 0339 Dabigatran 150 MG BID 03/31 1000 CAN PO Dabigatran 150 MG BID 03/31 1000 AC PO Dexamethasone 4 MG .STK-MED ONE 03/30 1447 DC IM 03/30 1448 Dextrose/Sodium 1,000 ML Q10H 03/30 2245 AC 03/31 Chloride IV 0000 Docusate Sodium 100 MG BID 03/31 1000 AC PO Docusate Sodium 100 MG BID 03/29 1024 DC 03/30 PO 0921 Fentanyl Citrate 250 MCG .STK-MED ONE 03/30 1446 DC IM 03/30 1447 Fluticasone 2 SPRAY DAILY 03/31 1000 AC Propionate JERRY Fluticasone 2 SPRAY DAILY 03/29 1530 DC 03/30 Propionate JERRY 0924 Furosemide 40 MG DAILY 03/31 1000 AC PO Furosemide 40 MG DAILY 03/29 1000 DC 03/30 PO 0921 Hydromorphone HCl 2 MG .STK-MED ONE 03/30 1446 DC IM 03/30 1447 Ketorolac 15 MG Q6P PRN 03/28 1300 AC 03/30 Tromethamine IV 04/02 1259 1235 Levothyroxine Sodium 0.175 MG DAILY AC 03/31 0700 AC PO Levothyroxine Sodium 0.175 MG DAILY AC 03/29 0700 DC 03/30 PO 0921 Losartan Potassium 25 MG DAILY 03/31 1000 AC PO Losartan Potassium 25 MG DAILY 03/29 1000 DC 03/30 PO 0924 Metoprolol Succinate 50 MG DAILY 03/31 1000 AC PO Metoprolol Succinate 50 MG DAILY 03/29 1000 DC 03/30 PO 0924 Midazolam HCl 2 MG .STK-MED ONE 03/30 1446 DC IM 03/30 1447 Morphine Sulfate 2 MG Q4P PRN 03/30 2300 AC IV Morphine Sulfate 4 MG Q4P PRN 03/30 2300 AC IV Morphine Sulfate 2 MG Q6P PRN 03/28 1415 DC 03/29 IV 2122 Ondansetron HCl 4 MG Q6P PRN 03/30 2300 AC IV Ondansetron HCl 8 MG .STK-MED ONE 03/30 1447 DC IM 03/30 1448 Paroxetine HCl 40 MG DAILY 03/31 1000 AC PO Paroxetine HCl 40 MG DAILY 03/29 1000 DC 03/30 PO 0921 Polyethylene Glycol 17 GM DAILY 03/31 1000 AC PO Polyethylene Glycol 17 GM DAILY 03/29 1024 DC 03/29 PO 1234 Pravastatin Sodium 10 MG 1700 03/31 1700 AC PO Pravastatin Sodium 10 MG 1700 03/29 1700 DC 03/29 PO 1743 Senna 187 MG AT BEDTIME 03/31 2200 AC PO Senna 187 MG AT BEDTIME 03/29 2200 DC 03/29 PO 2122 Sodium Chloride 500 ML BOLUS ONE 03/31 0400 DC 03/31 IV 03/31 0459 0402 Sodium Chloride 500 ML BOLUS ONE 03/30 2330 DC 03/30 IV 03/31 0029 2330 Sodium Chloride 1,000 ML Q13H 03/30 0815 DC 03/30 IV 03/30 2114 0920 Warfarin Sodium 7.5 MG COUMADIN 1700 ONE 03/31 1700 CAN PO 03/31 1701 Last 24 Hrs of Lab/Erik Results Last 24 Hrs of Labs/Mics: Laboratory Tests 03/30/172129: Anion Gap 13, Estimated GFR 53 L, BUN/Creatinine Ratio 15.0, CBC w Diff NO MAN DIFF REQ, RBC 4.38, MCV 95.9, MCH 32.4 H, RDW 15.6 H, MPV 8.9, Gran % 87.3 H, Lymphocytes % 7.8 L, Monocytes % 4.6, Eosinophils % 0.1, Basophils % 0.2, Absolute Granulocytes 13.4 H, Absolute Lymphocytes 1.2, Absolute Monocytes 0.7 H, Absolute Eosinophils 0, Absolute Basophils 0, PUBS MCHC 33.8 03/30/17 0610: Anion Gap 7, Estimated GFR > 60, BUN/Creatinine Ratio 20.0, CBC w Diff NO MAN DIFF REQ, RBC 3.46 L, MCV 98.5, MCH 33.1 H, RDW 13.8, MPV 9.0, Gran % 58.8, Lymphocytes % 26.8, Monocytes % 10.5 H, Eosinophils % 3.4, Basophils % 0.5, Absolute Granulocytes 4.7, Absolute Lymphocytes 2.1, Absolute Monocytes 0.8 H, Absolute Eosinophils 0.3, Absolute Basophils 0, PUBS MCHC 33.6 Assessment/Plan Assessment: 81-year-old with PMH of atrial fibrillation on pradaxa, sick sinus s/p pacemaker, hypothyroidism, NONoxygen dependent COPD, pulmonary hypertension. # Left intertrochanteric fracture - Received 3 U prbc in the OR: Monitor H&H closely. -last pradaxa taken prior to admision 03/28 am - pradaxa was held for 24 hrs prior to surgery, no heparin bridging as per cardio * bowel regimen miralax senna colace * c/w current pain MX regimen * Resume pradaxa after surgery based on surgery and cardio recc * appreciate cardio (Dr Raheel Mejia) and ortho input * continue de luna * PT after surgery * incentive spirometry and trc # Atrial fibrillation on pradaxa, sick sinus s/p pacemaker, hypothyroidism, NON oxygen dependent COPD * continue home meds pravachol, paxil, metoprolol, losartan, lasix, synthroid Diet: heart healthy DVT prophylaxis on pradaxa FC Problem List: 1. Intertrochanteric fracture of left hip 2. Atrial fibrillation Pain Ratin Pain Location: Lt hip Pain Goal: Pain 4 or less Pain Plan: As per order Tomorrow's Labs & Rationales: CBC to monitor H&H
--- NOTE | 2017-03-31 07:27 | RADIOLOGY REPORT ---
EXAMINATION: XR HIP, LEFT CLINICAL INFORMATION: Intraoperative fluoroscopy is submitted during left hip ORIF. COMPARISON: Left hip radiographs dated 03/28/2017 showing a left proximal femur intertrochanteric fracture. TECHNIQUE: Two views of the left hip. PATIENT DOSE: 3.0 minutes. NUMBER OF IMAGES: 56. FINDINGS: Intraoperative fluoroscopic guidance is submitted during left femoral intramedullary shon placement and application of left femoral neck compression screw. At the conclusion of the procedure, there is anabaptist of a bony alignment. IMPRESSION: Intraoperative fluoroscopic guidance is provided during ORIF of a comminuted proximal left femur intertrochanteric fracture. Please see Operative Report for full procedural details.
[2017-03-31 08:45] LABS: ABSOLUTE BASOPHIL COUNT 0 /CUMM (0.0-0.2); ABSOLUTE EOSINOPHIL COUNT 0 /CUMM (0.0-0.7); ABSOLUTE GRANULOCYTE CT 14.3 /CUMM (1.4-6.5); ABSOLUTE LYMPH COUNT 1.5 /CUMM (1.2-3.4); ABSOLUTE MONOCYTE COUNT 0.9 /CUMM (0.10-0.60); BASOPHIL % 0 % (0.0-2.0); EOSINOPHIL % 0 % (0-5); GRANULOCYTE % 85.8 % (42.2-75.2); MEAN CORPUSCULAR HGB 32.9 PG (27.0-31.0); MEAN PLATELET VOLUME 9.7 FL (7.4-10.4); PLATELET COUNT 138 /CUMM (130-400); RBC DISTRIBUTION WIDTH 16.1 % (11.5-14.5); RED BLOOD CELL CT 3.61 /CUMM (4.20-5.40); WHITE BLOOD CELL COUNT 16.7 /CUMM (4.8-10.8)
--- NOTE | 2017-03-31 09:03 | PN- Orthopedic ---
See Addendum Subjective Subjective: Pt seen and examined by Dr Mayorga - see addendum to Ortho consult earlier today Objective Vital Signs and I&Os Vital Signs Date Time Temp Pulse Resp B/P B/P Pulse O2 O2 Flow FiO2 Mean Ox Delivery Rate 03/31 0706 98.0 70 16 100/50 94 03/31 0459 108/58 03/31 0352 80 80/40 03/31 0133 104/64 03/31 0000 80 92/62 03/31 0000 96 Nasal 3.0L Cannula 03/30 2330 82 86/42 03/30 2329 86/49 03/30 2328 70 82/40 97 03/30 2300 97.7 84 18 74/40 95 Nasal 3.0L Cannula 03/30 1441 99.2 63 20 134/82 96 03/30 1116 Nasal 2.0L Cannula 03/30 1034 Room Air 03/30 1031 Room Air 03/30 0924 70 110/70 03/30 0924 70 110/70 Intake & Output 03/31 1600 03/31 0800 03/31 0000 03/30 1600 03/30 0800 03/30 0000 Intake Total 1700 600 450 20 260 Output Total 150 377 840 0855 Balance 1550 600 125 -230 -890 Intake, IV 1500 600 450 20 20 Intake, Oral 200 0 240 Output, Urine 150 297 842 6239 Assessment/Plan Assessment/Plan 81 yo female pod 1 s/p difficulty IMHS with significant blood loss intraop, Acute post op blood loss anemia requiring 3 units of prbc intraop Per Dr Mayorga, no anticoagulation to be given today due to bleeding risk Plan to restart anticoagulation in the morning 04/01 Recommend coumadin but will defer to medical team Weight bear status is strict toe touch weight bear - bed to chair only - no further ambulation at this time
[2017-03-31 21:01] LABS: ABSOLUTE BASOPHIL COUNT 0 /CUMM (0.0-0.2); ABSOLUTE EOSINOPHIL COUNT 0 /CUMM (0.0-0.7); ABSOLUTE LYMPH COUNT 1.8 /CUMM (1.2-3.4); ABSOLUTE MONOCYTE COUNT 1.2 /CUMM (0.10-0.60); BASOPHIL % 0.1 % (0.0-2.0); EOSINOPHIL % 0.1 % (0-5); MEAN CORPUSCULAR HGB 32.6 PG (27.0-31.0); MEAN PLATELET VOLUME 8.9 FL (7.4-10.4); PLATELET COUNT 165 /CUMM (130-400); RBC DISTRIBUTION WIDTH 15.6 % (11.5-14.5)
[2017-03-31 21:02] LABS: HEMATOCRIT 28.8 % (37-47)
[2017-04-01 06:47] VITALS: BP 142/54
--- NOTE | 2017-04-01 08:19 | PN- Housestaff ---
SOFIA DE JESUS,[facility] 04/01/17 0818: Subjective Follow-up For: hip fracture Subjective: pain level 0-4 wbc 16.7 to 11.8, no bands or seg neutrophils hb 11.9 to 9.1 , discussed with Dr. Baez, cardiology jewelry consultant, who recommends asking surgery regarding anticoagulation choice. surgery ok with resuming pradaxa. cr 1.1 to 0.8, will resume losartan and lasix. pt currently has no iv access. so can only get po meds. Review of Systems Constitutional: Reports: see HPI. Objective Last 24 Hrs of Vital Signs/I&O Vital Signs Date Time Temp Pulse Resp B/P B/P Pulse O2 O2 Flow FiO2 Mean Ox Delivery Rate 04/01 1122 140/60 04/01 0800 95 Nasal 3.0L Cannula 04/01 0647 97.8 68 18 142/54 96 Nasal 3.0L Cannula 04/01 0000 Nasal 3.0L Cannula 03/31 2253 98.7 63 20 160/60 100 Nasal 3.0L Cannula 03/31 1602 97.7 86 20 110/60 98 03/31 1600 Nasal 3.0L Cannula Intake & Output 04/01 1600 04/01 0800 04/01 0000 Intake Total Output Total 400 600 Balance -400 -600 Output, Urine 400 600 Physical Exam General Appearance: Alert, Oriented X3, Cooperative, No Acute Distress HEENT: Atraumatic Cardiovascular: irregularly irregular rate Lungs: Clear to Auscultation, Normal Air Movement Abdomen: Normal Bowel Sounds, Soft, No Tenderness Current Medications: Current Medications Sig/Tena Start time Last Medication Dose Route Stop Time Status Admin Acetaminophen 650 MG Q4P PRN 04/01 0945 AC PO Acetaminophen 1,000 MG Q6 PRN 03/31 1015 DC 03/31 IV 1748 Bisacodyl 10 MG ONCE ONE 04/01 1245 UNVr NE 04/01 1246 Dabigatran 150 MG BID 04/01 1230 DC PO Dextrose/Sodium 1,000 ML Q10H 03/30 2245 DC 04/01 Chloride IV 0339 Docusate Sodium 100 MG BID 03/31 1000 AC 04/01 PO 1123 Fluticasone 2 SPRAY DAILY 03/31 1000 AC 04/01 Propionate JERRY 1122 Furosemide 40 MG DAILY 04/01 1230 AC PO Hydromorphone HCl 1 MG Q6P PRN 04/01 1245 UNVr PO Levothyroxine Sodium 0.175 MG DAILY AC 03/31 0700 AC 04/01 PO 0649 Losartan Potassium 25 MG DAILY 04/01 1230 AC PO Metoprolol Succinate 50 MG DAILY 03/31 1000 AC 04/01 PO 1122 Morphine Sulfate 2 MG Q4P PRN 04/01 1230 DC IV Morphine Sulfate 2 MG Q4P PRN 03/30 2300 DC IV Morphine Sulfate 4 MG Q4P PRN 03/30 2300 DC IV Ondansetron HCl 4 MG Q6P PRN 03/30 2300 AC 03/31 IV 1836 Paroxetine HCl 40 MG DAILY 03/31 1000 AC 04/01 PO 1123 Polyethylene Glycol 17 GM DAILY 03/31 1000 AC 04/01 PO 1123 Pravastatin Sodium 10 MG 1700 03/31 1700 AC PO Senna 187 MG AT BEDTIME 03/31 2200 AC PO Last 24 Hrs of Lab/Erik Results Last 24 Hrs of Labs/Mics: Laboratory Tests 04/01/17 0750: Anion Gap 4 L, Estimated GFR > 60, BUN/Creatinine Ratio 22.5, CBC w Diff NO MAN DIFF REQ, RBC 2.78 L, MCV 97.6, MCH 32.8 H, RDW 15.7 H, MPV 9.0, Gran % 73.1, Lymphocytes % 15.1 L, Monocytes % 10.6 H, Eosinophils % 1.0, Basophils % 0.2, Absolute Granulocytes 8.6 H, Absolute Lymphocytes 1.8, Absolute Monocytes 1.2 H, Absolute Eosinophils 0.1, Absolute Basophils 0, PUBS MCHC 33.6 03/31/172024: CBC w Diff NO MAN DIFF REQ, RBC 3.00 L, MCV 96.0, MCH 32.6 H, RDW 15.6 H, MPV 8.9, Gran % 77.0 H, Lymphocytes % 13.6 L, Monocytes % 9.2, Eosinophils % 0.1, Basophils % 0.1, Absolute Granulocytes 10.0 H, Absolute Lymphocytes 1.8, Absolute Monocytes 1.2 H, Absolute Eosinophils 0, Absolute Basophils 0, PUBS MCHC 34.0 Assessment/Plan Assessment: 81-year-old with PMH of atrial fibrillation on pradaxa, sick sinus s/p pacemaker, hypothyroidism, NONoxygen dependent COPD, pulmonary hypertension. # Left intertrochanteric fracture, s/p repair left comminuted intertrochanteric- subtrochanteric proximal femur fracture with long cephalo-medullary nail. # Constipation - last pradaxa taken prior to admision 03/28 am - pradaxa was held for 48 hrs prior to surgery, no heparin bridging as per cardio - Received 3 U prbc in the OR: Monitor H&H closely * bowel regimen miralax senna colace, suppository X 1 * c/w current pain MX regimen * Resume pradaxa 04/01/17 am , watch h/h closely * appreciate cardio (Dr Raheel Mejia) and ortho input (Dr. Mayorga) * continue de luna * PT after surgery - bed to chair only, strict toe touch * incentive spirometry and trc # COLT post op - most likely prerenal due to perioperative blood loss * Cr was up to 1.1, now back to 0.8 * lasix, losartan was held, now restarted # Atrial fibrillation on pradaxa, sick sinus s/p pacemaker, hypothyroidism, NON oxygen dependent COPD * continue home meds pravachol, paxil, metoprolol, synthroid, losartan, lasix pp: tylenol mild, percocet moderate, dilaudid severe, all po Diet: heart healthy DVT prophylaxis: alps , pradaxa FC Problem List: 1. Intertrochanteric fracture of left hip Pain Ratin Pain Location: hip Pain Goal: Pain 4 or less Pain Plan: tylenol percocet dilaudid Tomorrow's Labs & Rationales: cbc for acute blood loss anemia bep for colt DVT/Prophylaxis: mechanical, pharmacological [facility] 04/01/17 1105: Attending MD Review Statement Attending Statement Attending MD Statement: examined this patient, discuss w/resident/PA/STATEMENT CLERKS SUPERVISOR, agreed w/resident/PA/STATEMENT CLERKS SUPERVISOR, discussed with family, reviewed EMR data (avail), discussed with nursing, discussed with case mgmt, reviewed images, amended to note Attending Assessment/Plan: Patient sitting comfortably on the recliner. Does not offer any complaints. Her H&H is stable. Her kidney function is back to baseline. Recommendations 1. We can resume her blood pressure medications with holding parameters 2. Restart her Pradaxa today, this was discussed with surgical PA. Recheck her CBC tomorrow morning to ensure there is no drop in hemoglobin and hematocrit. 3. Can restart her Lasix and Cozaar. 4. Morphine for pain, avoid sedation and constipation.
[2017-04-01 08:55] LABS: ABSOLUTE BASOPHIL COUNT 0 /CUMM (0.0-0.2); ABSOLUTE EOSINOPHIL COUNT 0.1 /CUMM (0.0-0.7); ABSOLUTE GRANULOCYTE CT 8.6 /CUMM (1.4-6.5); ABSOLUTE LYMPH COUNT 1.8 /CUMM (1.2-3.4); ABSOLUTE MONOCYTE COUNT 1.2 /CUMM (0.10-0.60); BASOPHIL % 0.2 % (0.0-2.0); GRANULOCYTE % 73.1 % (42.2-75.2); HEMATOCRIT 27.1 % (37-47); MEAN CORPUSCULAR HGB 32.8 PG (27.0-31.0); MEAN CORPUSCULAR HGB CONC 33.6 G/DL (33.0-37.0); MEAN CORPUSCULAR VOLUME 97.6 FL (81.0-99.0); PLATELET COUNT 161 /CUMM (130-400); RBC DISTRIBUTION WIDTH 15.7 % (11.5-14.5); RED BLOOD CELL CT 2.78 /CUMM (4.20-5.40); WHITE BLOOD CELL COUNT 11.8 /CUMM (4.8-10.8)
--- NOTE | 2017-04-01 14:01 | PN- Orthopedic ---
See Addendum Subjective Subjective: Pt was mobilized to chair with max assist and required isha to return to bed. She admits to discomfort in the surgical area, but well controlled. Otherwise no dizziness, CP, or SOB. Objective Vital Signs and I&Os Vital Signs Date Time Temp Pulse Resp B/P B/P Pulse O2 O2 Flow FiO2 Mean Ox Delivery Rate 04/01 1122 140/60 04/01 0800 95 Nasal 3.0L Cannula 04/01 0647 97.8 68 18 142/54 96 Nasal 3.0L Cannula 04/01 0000 Nasal 3.0L Cannula 03/31 2253 98.7 63 20 160/60 100 Nasal 3.0L Cannula 03/31 1602 97.7 86 20 110/60 98 03/31 1600 Nasal 3.0L Cannula Intake & Output 04/01 1600 04/01 0800 04/01 0000 03/31 1600 03/31 0800 03/31 0000 Intake Total 1100 1700 600 Output Total 400 600 150 Balance -400 -600 1100 1550 600 Intake, IV 800 1500 600 Intake, Oral 300 200 0 Output, Urine 400 600 150 Physical Exam: General: Pt is awake and alert. NAD. Ext: The surgical dressing was removed. Incision is clean, dry and intact with joy in place. There is mild ecchymosis around the incision, which appears to be due to retraction and not hematoma. The thigh is softly swollen, within expected limits for this extensive surgery. LLE sensation is intact. Strenth of DF and PF are 4/5 on the left. (Of note, Pt is able to log roll independently for dressing change.) Results Last 48 Hours of Labs: Laboratory Tests 04/01 Chemistry Sodium (137 - 145 mmol/L) 136 L Potassium (3.5 - 5.1 mmol/L) 4.1 Chloride (98 - 107 mmol/L) 103 Carbon Dioxide (22 - 30 mmol/L) 28 Anion Gap (5 - 16) 4 L BUN (7 - 17 mg/dL) 18 H Creatinine (0.5 - 1.0 mg/dL) 0.8 Estimated GFR (>60 ml/min) > 60 BUN/Creatinine Ratio (7 - 25 %) 22.5 Hematology CBC w Diff NO MAN DIFF REQ NO MAN DIFF REQ WBC (4.8 - 10.8 /CUMM) 11.8 H 13.0 H RBC (4.20 - 5.40 /CUMM) 2.78 L 3.00 L Hgb (12.0 - 16.0 G/DL) 9.1 L 9.8 L Hct (37 - 47 %) 27.1 L 28.8 L MCV (81.0 - 99.0 FL) 97.6 96.0 MCH (27.0 - 31.0 PG) 32.8 H 32.6 H RDW (11.5 - 14.5 %) 15.7 H 15.6 H Plt Count (130 - 400 /CUMM) 161 165 MPV (7.4 - 10.4 FL) 9.0 8.9 Gran % (42.2 - 75.2 %) 73.1 77.0 H Lymphocytes % (20.5 - 51.1 %) 15.1 L 13.6 L Monocytes % (1.7 - 9.3 %) 10.6 H 9.2 Eosinophils % (0 - 5 %) 1.0 0.1 Basophils % (0.0 - 2.0 %) 0.2 0.1 Absolute Granulocytes (1.4 - 6.5 /CUMM) 8.6 H 10.0 H Absolute Lymphocytes (1.2 - 3.4 /CUMM) 1.8 1.8 Absolute Monocytes (0.10 - 0.60 /CUMM) 1.2 H 1.2 H Absolute Eosinophils (0.0 - 0.7 /CUMM) 0.1 0 Absolute Basophils (0.0 - 0.2 /CUMM) 0 0 PUBS MCHC (33.0 - 37.0 G/DL) 33.6 34.0 / 05/ 0645 2130 Chemistry Sodium (137 - 145 mmol/L) 137 133 L Potassium (3.5 - 5.1 mmol/L) 4.7 4.6 Chloride (98 - 107 mmol/L) 100 96 L Carbon Dioxide (22 - 30 mmol/L) 27 24 Anion Gap (5 - 16) 11 13 BUN (7 - 17 mg/dL) 20 H 15 Creatinine (0.5 - 1.0 mg/dL) 1.1 H 1.0 Estimated GFR (>60 ml/min) 48 L 53 L BUN/Creatinine Ratio (7 - 25 %) 18.2 15.0 Hematology CBC w Diff MAN DIFF ORDERED NO MAN DIFF REQ WBC (4.8 - 10.8 /CUMM) 16.7 H 15.3 H RBC (4.20 - 5.40 /CUMM) 3.61 L 4.38 Hgb (12.0 - 16.0 G/DL) 11.9 L 14.2 Hct (37 - 47 %) 35.0 L 41.9 MCV (81.0 - 99.0 FL) 97.0 95.9 MCH (27.0 - 31.0 PG) 32.9 H 32.4 H RDW (11.5 - 14.5 %) 16.1 H 15.6 H Plt Count (130 - 400 /CUMM) 138 145 MPV (7.4 - 10.4 FL) 9.7 8.9 Gran % (42.2 - 75.2 %) 85.8 H 87.3 H Lymphocytes % (20.5 - 51.1 %) 8.8 L 7.8 L Monocytes % (1.7 - 9.3 %) 5.4 4.6 Eosinophils % (0 - 5 %) 0 0.1 Basophils % (0.0 - 2.0 %) 0 L 0.2 Absolute Granulocytes (1.4 - 6.5 /CUMM) 14.3 H 13.4 H Segmented Neutrophils (42.2 - 75.2 %) 76 H Band Neutrophils (0.0 - 5.0 %) 10 H Absolute Lymphocytes (1.2 - 3.4 /CUMM) 1.5 1.2 Lymphocytes (20.5 - 51.1 %) 10 L Monocytes (1.7 - 9.3 %) 4 Absolute Monocytes (0.10 - 0.60 /CUMM) 0.9 H 0.7 H Absolute Eosinophils (0.0 - 0.7 /CUMM) 0 0 Absolute Basophils (0.0 - 0.2 /CUMM) 0 0 Platelet Estimate (ADEQUATE) VERIFIED BY SMEAR Polychromasia 1+ Anisocytosis 1+ PUBS MCHC (33.0 - 37.0 G/DL) 34.0 33.8 Assessment/Plan Assessment/Plan Pt is an 81 yo F with a hx of afib, ppm, O2 dependent copd, and htn, who is now POD #2 s/p IMHS of L intertroch fracture after mechanical fall. -H/H is trending downward, but not more than expected given the extend of surgery. -Ok to restart pradaxa. Repeat h/h in am. -PT for mobilization. OOB to chair only. TTWB. Do not attempt ambulation. -Dry dressing change once daily. -Pain control with po meds. -Bowel regimen. -Medical management by primary team.
[2017-04-01 15:29] VITALS: BP 120/60
[2017-04-01 17:50] LABS: ABSOLUTE BASOPHIL COUNT 0 /CUMM (0.0-0.2); ABSOLUTE EOSINOPHIL COUNT 0.2 /CUMM (0.0-0.7); ABSOLUTE GRANULOCYTE CT 9.9 /CUMM (1.4-6.5); ABSOLUTE LYMPH COUNT 1.6 /CUMM (1.2-3.4); ABSOLUTE MONOCYTE COUNT 1.1 /CUMM (0.10-0.60); BASOPHIL % 0.2 % (0.0-2.0); EOSINOPHIL % 1.2 % (0-5); GRANULOCYTE % 77.7 % (42.2-75.2); MEAN CORPUSCULAR HGB 32.9 PG (27.0-31.0); MEAN CORPUSCULAR HGB CONC 33.9 G/DL (33.0-37.0); MEAN CORPUSCULAR VOLUME 97.1 FL (81.0-99.0); MEAN PLATELET VOLUME 8.5 FL (7.4-10.4); PLATELET COUNT 161 /CUMM (130-400); RBC DISTRIBUTION WIDTH 15.6 % (11.5-14.5); RED BLOOD CELL CT 2.67 /CUMM (4.20-5.40); WHITE BLOOD CELL COUNT 12.7 /CUMM (4.8-10.8)
[2017-04-01 22:36] VITALS: BP 120/64
[2017-04-02 06:50] VITALS: BP 144/62
--- NOTE | 2017-04-02 07:12 | PN- Housestaff ---
SOFIA DE JESUS,ORION 04/02/17 0712: Subjective Follow-up For: hip fracture with acute blood loss anemia Subjective: pain score over past 24 hrs were 0,2,0,3,2,6,2,3,4,0, given 1x tylenol po and 1Xpercocet yesterday. she had 3 large bm with suppository given yesterday. pradaxa has been resumed. her preop hb was around 11, and currently her hb continues to slowly trend down to 8.3, no obvious hematoma noted on the surgical site. plan to be discharged to rehab today if has a bed. Review of Systems Constitutional: Reports: see HPI. Objective Last 24 Hrs of Vital Signs/I&O Vital Signs Date Time Temp Pulse Resp B/P B/P Pulse O2 O2 Flow FiO2 Mean Ox Delivery Rate 04/02 0849 62 134/60 04/02 0848 62 134/60 04/02 0800 92 Nasal 3.0L Cannula 04/02 0650 98.0 72 20 144/62 92 Nasal 3.0L Cannula 04/02 0000 Nasal 3.0L Cannula 04/01 2236 98.1 60 20 120/64 90 Nasal Cannula 04/01 1600 Nasal 3.0L Cannula 04/01 1529 98.0 62 20 120/60 99 04/01 1424 110/60 Intake & Output 04/02 1600 04/02 0800 04/02 0000 Intake Total 960 Output Total 350 1450 Balance -350 -490 Intake, Oral 960 Number 2 Bowel Movements Output, Urine 350 1450 Patient 102.512 kg Weight Physical Exam General Appearance: Alert, Oriented X3, Cooperative, No Acute Distress HEENT: Atraumatic Cardiovascular: irregularly irregular rate, rate controlled Lungs: Clear to Auscultation, Normal Air Movement Abdomen: Normal Bowel Sounds, Soft, No Tenderness Neurological: Normal Speech Extremities: trace edema Current Medications: Current Medications Sig/Tena Start time Last Medication Dose Route Stop Time Status Admin Acetaminophen 650 MG Q4P PRN 04/01 0945 AC 04/01 PO 1423 Dabigatran 150 MG BID 04/01 1300 AC 04/02 PO 0848 Docusate Sodium 100 MG BID 03/31 1000 AC 04/01 PO 1123 Fluticasone 2 SPRAY DAILY 03/31 1000 AC 04/02 Propionate JERRY 0847 Furosemide 40 MG DAILY 04/01 1230 AC 04/02 PO 0849 Hydromorphone HCl 1 MG Q6P PRN 04/01 1245 AC PO Levothyroxine Sodium 0.175 MG DAILY AC 03/31 0700 AC 04/02 PO 0755 Losartan Potassium 25 MG DAILY 04/01 1230 AC 04/02 PO 0849 Metoprolol Succinate 50 MG DAILY 03/31 1000 AC 04/02 PO 0848 Omeprazole 40 MG DAILY AC 04/02 1214 DC PO Ondansetron HCl 4 MG Q6P PRN 03/30 2300 AC 03/31 IV 1836 Oxycodone/ 1 TAB Q4P PRN 04/01 1300 AC 04/02 Acetaminophen PO 0920 Paroxetine HCl 40 MG DAILY 03/31 1000 AC 04/02 PO 0848 Polyethylene Glycol 17 GM DAILY 03/31 1000 AC 04/01 PO 1123 Pravastatin Sodium 10 MG 1700 03/31 1700 AC 04/01 PO 1634 Senna 187 MG AT BEDTIME 03/31 2200 AC PO Last 24 Hrs of Lab/Erik Results Last 24 Hrs of Labs/Mics: Laboratory Tests 04/02/17 0925: Anion Gap 6, Estimated GFR > 60, BUN/Creatinine Ratio 20.0, CBC w Diff NO MAN DIFF REQ, RBC 2.53 L, MCV 98.6, MCH 32.8 H, RDW 15.7 H, MPV 8.4, Gran % 82.2 H, Lymphocytes % 9.4 L, Monocytes % 5.6, Eosinophils % 2.5, Basophils % 0.3, Absolute Granulocytes 9.2 H, Absolute Lymphocytes 1.1 L, Absolute Monocytes 0.6, Absolute Eosinophils 0.3, Absolute Basophils 0, PUBS MCHC 33.3 04/01/17 1715: CBC w Diff NO MAN DIFF REQ, RBC 2.67 L, MCV 97.1, MCH 32.9 H, RDW 15.6 H, MPV 8.5, Gran % 77.7 H, Lymphocytes % 12.5 L, Monocytes % 8.4, Eosinophils % 1.2, Basophils % 0.2, Absolute Granulocytes 9.9 H, Absolute Lymphocytes 1.6, Absolute Monocytes 1.1 H, Absolute Eosinophils 0.2, Absolute Basophils 0, PUBS MCHC 33.9 Assessment/Plan Assessment: 81-year-old with PMH of atrial fibrillation on pradaxa, sick sinus s/p pacemaker, hypothyroidism, NONoxygen dependent COPD, pulmonary hypertension. # Left intertrochanteric fracture, s/p repair left comminuted intertrochanteric- subtrochanteric proximal femur fracture with long cephalo-medullary nail. # Constipation (last bm prior to admission was tuesday 03/27) - last pradaxa taken prior to admision 03/28 am - pradaxa was held for 48 hrs prior to surgery, no heparin bridging as per cardio - Received 3 U prbc in the OR: Monitor H&H closely * bowel regimen miralax senna colace, suppository X 1 , had bm 04/01/17 * pain control with po tylenol, percocet, dilaudid. she has only been getting tylenol and perocet. ctpmp checked, shows no match/records. * pradaxa resumed 04/01/17 am , h/h still slowly trending down, no obvious hematoma at surgical site * appreciate cardio (Dr Raheel Mejia) and ortho input (Dr. Mayroga) * continue de luna * PT after surgery - bed to chair only, strict toe touch * incentive spirometry and trc # BERNADETTE post op - most likely prerenal due to perioperative blood loss * Cr was up to 1.1, now back to 0.8 * lasix, losartan was held, now restarted # Atrial fibrillation on pradaxa, sick sinus s/p pacemaker, hypothyroidism, NON oxygen dependent COPD * continue home meds pravachol, paxil, metoprolol, synthroid, losartan, lasix pp: tylenol mild, percocet moderate, dilaudid severe, all po Diet: heart healthy DVT prophylaxis: alps , pradaxa FC Problem List: 1. Intertrochanteric fracture of left hip Pain Ratin Pain Location: none Pain Goal: Remain pain free Pain Plan: tylenol percocet dilaudid Tomorrow's Labs & Rationales: none DVT/Prophylaxis: mechanical, pharmacological LEONARD JOHNSON 04/02/17 1155: Attending Review Statement Attending Statement Attending MD Statement: examined this patient, discuss w/resident/PA/RESISTOR COATER, agreed w/resident/PA/RESISTOR COATER, discussed with family, reviewed EMR data (avail), discussed with nursing, discussed with case mgmt, reviewed images, amended to note Attending Assessment/Plan: Patient being admitted for left hip fracture for repair. Pain control, held pradaxa, orthopedics and cardiology consulted, gi/dvt prophyalxis, full code plan of care d/wed patient and family bedside. Patient underwent ORIF received blood transfuison for acute blood loss anemia. Patient on oxygen for post op atelecatsis, encouraged incentive spirometry. Patient pradaxa for afib controlled resumed as per Cardiology and ortho. F/U O/P PCP, cardio Dr Agustin Rojas. anticipate d/c soon to rehab as per PT recommendations.
--- NOTE | 2017-04-02 07:15 | PN- Orthopedic ---
See Addendum Subjective Subjective: The patient was seen this morning postoperatively day #3. She reports that her hip is more comfortable than the day prior. She only has complaints of right upper extremity pain from where they've attempted to start IV access and there is an area of ecchymosis. Objective Vital Signs and I&Os Vital Signs Date Time Temp Pulse Resp B/P B/P Pulse O2 O2 Flow FiO2 Mean Ox Delivery Rate 04/02 0650 98.0 72 20 144/62 92 Nasal 3.0L Cannula 04/02 0000 Nasal 3.0L Cannula 04/01 2236 98.1 60 20 120/64 90 Nasal Cannula 04/01 1600 Nasal 3.0L Cannula 04/01 1529 98.0 62 20 120/60 99 04/01 1424 110/60 04/01 1122 140/60 04/01 0800 95 Nasal 3.0L Cannula Intake & Output 04/02 0800 04/02 0000 04/01 1600 04/01 0800 04/01 0000 03/31 1600 Intake Total 960 1075 1100 Output Total 350 1450 400 400 600 Balance -350 -490 675 -400 -600 1100 Intake, IV 800 Intake, Oral 960 1075 300 Number 2 1 Bowel Movements Output, Urine 350 1450 400 400 600 Physical Exam: Gen.: Alert and in no obvious distress Skin: Warm and dry Extremities: Right forearm with significant area of ecchymosis and edema that is tender to palpation Bilateral lower extremities are warm without calf tenderness or significant edema. Gross motor and sensory are intact. Left hip surgical dressing is blood -tinged but otherwise intact with mild surrounding ecchymosis. Assessment/Plan Assessment/Plan Assessment: 81-year-old female status post left femoral IM at bedtime postoperative day #3. The patient is progressing as expected and her pain is more adequately controlled at the current time. Recommendations: Warm compresses to right upper extremity Out of bed to chair with physical therapy patient is toe-touch weightbearing only Follow-up morning laboratory studies GI and DVT prophylaxis continuing the patient's pradaxa Incentive spirometry Daily dry dressing change to surgical site May be discharged to short-term rehabilitation when okay with primary team Surgical clips should be removed on postoperative day #15 and the incision being reinforced with Steri-Strips The patient should follow-up in the office in approximately 3 weeks Continue current pain regiment Care per primary team
[2017-04-02] MEDS ORDERED: TYLENOL325 M1 PO (08:41)
--- NOTE | 2017-04-02 10:03 | Discharge Summary ---
Visit Information Visit Dates Admission Date: 03/28/17 Discharge Date: 04/02/17 Hospital Course Course Attending Physician: LEONARD JOHNSON MD Primary Care Physician: KARLI DE JESUS,LEENA Antunez Consulting Request: Consulting Specialty: Orthopedics Hospital Course: This is a 81-year-old lady with a past medical history of chronic atrial fibrillation (anticoagulated with Pradaxa), sick sinus syndrome, status post pacemaker implantation 2 years prior, hypothyroidism and COPD not on home oxygen , pulmonary hypertension with RV pressures greater than 50 on the last echo in 2016, who presented to the [facility] after she had a mechanical fall while trying to ambulate with her walker. The patient slightly twisted her leg and landed up on her left hip. The patient never lost consciousness, denied any dizziness, palpitations, chest pain prior to the fall. Ph/ex at the time of admission: Vital Signs Date Time Temp Pulse Resp B/P B/P Pulse O2 O2 Flow FiO2 Mean Ox Delivery Rate 03/28 1218 98.4 78 18 162/70 93 Room Air 03/28 1040 93 03/28 1013 97.9 85 20 178/107 93 Room Air General Appearance Alert, Oriented X3, Cooperative Skin No Rashes, No Breakdown Skin Temp/Moisture Exam: Warm/Dry Neck Supple, No JVD Lymphatic Axillary nl, Cervical nl Cardiovascular Normal S1, Normal S2 Lungs Clear to Auscultation, Normal Air Movement Abdomen Normal Bowel Sounds, Soft, No Tenderness, No Hepatospenomegaly Neurological Normal Speech, Strength at 5/5 X4 Ext, Normal Tone Extremities left leg shortened internally rotated Labs on admission: WBC of 7.2, stable hemoglobin and hematocrit, Basic electrolyte panel unremarkable. INR 1.29 03/28/17 1030: Anion Gap 11, Estimated GFR > 60, BUN/Creatinine Ratio 21.7, Glucose 104 H, Calcium 9.5, Total Bilirubin 0.7, AST 32, ALT 34, Alkaline Phosphatase 101, Troponin I < 0.01, Total Protein 7.2, Albumin 4.0, Globulin 3.2, Albumin/ Globulin Ratio 1.3, PT 13.5 H, INR 1.29 H, APTT 51 H, CBC w Diff NO MAN DIFF REQ, RBC 4.48, MCV 98.1, MCH 32.9 H, RDW 14.0, MPV 8.9, Gran % 58.8, Lymphocytes % 26.7, Monocytes % 10.8 H, Eosinophils % 3.4, Basophils % 0.3, Absolute Granulocytes 4.2, Absolute Lymphocytes 1.9, Absolute Monocytes 0.8 H, Absolute Eosinophils 0.2, Absolute Basophils 0, PUBS MCHC 33.5 Pertinent Imaging on admission: XRY-ANKLE 3 OR MORE VIEWS L; XRY-HIP 2-3 VIEWS, LEFT 03/28/17: 1. Acute comminuted and mildly impacted intertrochanteric fracture of the left proximal femur. 2. Evaluation of left ankle limited but there is evidence of prior open reduction internal fixation presumably of the distal fibular fracture. Arthrodesis of the hindfoot is also noted as discussed above. 3. Osteopenia. Head CT 03/28/17: 1. There are no intracranial bleeds or territorial infarcts. 2. There is likely a meningioma in the high right frontal region medially, unchanged. 3. There are changes consistent with chronic microvascular ischemic disease. CXR 03/28/17: - Cardiomegaly without pulmonary edema. - No acute cardiopulmonary disease compared to 08/10/2016. The following problems were addressed during the course of her hospital stay: # Comminuted left proximal femoral intertrochanteric-subtrochanteric fracture: s /p repair left comminuted intertrochanteric-subtrochanteric proximal femur fracture with long cephalo-medullary nail. - last pradaxa taken prior to admision 5 am, pradaxa was held for 48 hrs prior to surgery, no heparin bridging as per cardio. Received 3 U prbc in the OR , H&H monitored closely and remained stable. Incentive spirometry and TRC. PT recommended rehab. -Ortho recs post op: Warm compresses to right upper extremity, Out of bed to chair with physical therapy patient is toe-touch weightbearing only, DVT prophylaxis continuing the patient's pradaxa, Incentive spirometry, Daily dry dressing change to surgical site * Surgical clips should be removed on postoperative day #15 and the incision being reinforced with Steri-Strips * The patient should follow-up in the office in approximately [address] [facility] database checked. # Constipation;resolved. bowel regimen miralax senna colace, suppository # BERNADETTE post op;resolved. - most likely prerenal due to perioperative blood loss. Cr was elevated to 1.1, now back to 0.6 * lasix, losartan was held, now restarted # Atrial fibrillation on pradaxa, sick sinus s/p pacemaker, hypothyroidism, NON oxygen dependent COPD Maintained on home meds pravachol, metoprolol, synthroid, losartan, lasix, PRN TRC/Nebs. See above for pradaxa(resumed 04/01/17). Diet: heart healthy DVT prophylaxis: alps , pradaxa Full code Allergies: Coded Allergies: coconut oil (ITCHING ALL OVER 07/31/16) codeine ("MY BP GOES WAY DOWN" 07/31/16) Significant Procedures: 03/30/17. Repair left comminuted intertrochanteric-subtrochanteric proximal femur fracture with long cephalo-medullary nail. Hip Xray: 03/30/17: IMPRESSION: Intraoperative fluoroscopic guidance is provided during ORIF of a comminuted proximal left femur intertrochanteric fracture. Please see Operative Report for full procedural details. Pertinent Lab Results: Laboratory Tests 04/02/17 0925: Anion Gap 6, Estimated GFR > 60, BUN/Creatinine Ratio 20.0, CBC w Diff NO MAN DIFF REQ, RBC 2.53 L, MCV 98.6, MCH 32.8 H, RDW 15.7 H, MPV 8.4, Gran % 82.2 H, Lymphocytes % 9.4 L, Monocytes % 5.6, Eosinophils % 2.5, Basophils % 0.3, Absolute Granulocytes 9.2 H, Absolute Lymphocytes 1.1 L, Absolute Monocytes 0.6, Absolute Eosinophils 0.3, Absolute Basophils 0, PUBS MCHC 33.3 04/01/17 1715: CBC w Diff NO MAN DIFF REQ, RBC 2.67 L, MCV 97.1, MCH 32.9 H, RDW 15.6 H, MPV 8.5, Gran % 77.7 H, Lymphocytes % 12.5 L, Monocytes % 8.4, Eosinophils % 1.2, Basophils % 0.2, Absolute Granulocytes 9.9 H, Absolute Lymphocytes 1.6, Absolute Monocytes 1.1 H, Absolute Eosinophils 0.2, Absolute Basophils 0, PUBS MCHC 33.9 04/01/17 0750: Anion Gap 4 L, Estimated GFR > 60, BUN/Creatinine Ratio 22.5, CBC w Diff NO MAN DIFF REQ, RBC 2.78 L, MCV 97.6, MCH 32.8 H, RDW 15.7 H, MPV 9.0, Gran % 73.1, Lymphocytes % 15.1 L, Monocytes % 10.6 H, Eosinophils % 1.0, Basophils % 0.2, Absolute Granulocytes 8.6 H, Absolute Lymphocytes 1.8, Absolute Monocytes 1.2 H, Absolute Eosinophils 0.1, Absolute Basophils 0, PUBS MCHC 33.6 03/31/172024: CBC w Diff NO MAN DIFF REQ, RBC 3.00 L, MCV 96.0, MCH 32.6 H, RDW 15.6 H, MPV 8.9, Gran % 77.0 H, Lymphocytes % 13.6 L, Monocytes % 9.2, Eosinophils % 0.1, Basophils % 0.1, Absolute Granulocytes 10.0 H, Absolute Lymphocytes 1.8, Absolute Monocytes 1.2 H, Absolute Eosinophils 0, Absolute Basophils 0, [facility] MCHC 34.0 03/31/17 0645: Anion Gap 11, Estimated GFR 48 L, BUN/Creatinine Ratio 18.2, CBC w Diff MAN DIFF ORDERED, RBC 3.61 L, MCV 97.0, MCH 32.9 H, RDW 16.1 H, MPV 9.7, Gran % 85.8 H, Lymphocytes % 8.8 L, Monocytes % 5.4, Eosinophils % 0, Basophils % 0 L, Absolute Granulocytes 14.3 H, Segmented Neutrophils 76 H, Band Neutrophils 10 H, Absolute Lymphocytes 1.5, Lymphocytes 10 L, Monocytes 4, Absolute Monocytes 0.9 H, Absolute Eosinophils 0, Absolute Basophils 0, Platelet Estimate VERIFIED BY SMEAR, Polychromasia 1+, Anisocytosis 1+, [facility] MCHC 34.0 03/30/172129: Anion Gap 13, Estimated GFR 53 L, BUN/Creatinine Ratio 15.0, CBC w Diff NO MAN DIFF REQ, RBC 4.38, MCV 95.9, MCH 32.4 H, RDW 15.6 H, MPV 8.9, Gran % 87.3 H, Lymphocytes % 7.8 L, Monocytes % 4.6, Eosinophils % 0.1, Basophils % 0.2, Absolute Granulocytes 13.4 H, Absolute Lymphocytes 1.2, Absolute Monocytes 0.7 H, Absolute Eosinophils 0, Absolute Basophils 0, [facility] MCHC 33.8 Disposition Summary Disposition Principal Diagnosis: Comminuted left proximal femoral intertrochanteric-subtrochanteric fracture. Additional Diagnosis: BERNADETTE A.fib on pradaxa Discharge Disposition: SNF Discharge Instructions General Discharge Information Code Status: Full Code Patient's Diet: Cardiac Patient's Activity: As tolerated w/ PT. See instructions. Follow-Up Instructions/Appts: -Warm compresses to right upper extremity -Out of bed to chair with physical therapy patient is toe-touch weightbearing only - DVT prophylaxis continuing the patient's pradaxa -Incentive spirometry -Daily dry dressing change to surgical site -Surgical clips should be removed on postoperative day #15 and the incision being reinforced with Steri-Strips -The patient should follow-up in the office with ortho in approximately 3 weeks -Monitor H&H. Monitor for bleeeding around the surgical site. Check CBC as needed. -Follow up with PCP within one week of discharge. Medications at Discharge Discharge Medications: Continue taking these medications: Paroxetine HCl (Paroxetine HCl) 40 MG TABLET 1 Tablet ORAL DAILY Levothyroxine Sodium (Synthroid) 175 MCG TABLET 1 Tablet ORAL DAILY BEFORE BREAKFAST Metoprolol Succinate (Metoprolol Succinate) 50 MG TAB.ER.24H 1 Tablet ORAL DAILY Dabigatran Etexilate Mesylate (Pradaxa 150 MG) 150 MG CAPSULE 1 Capsule ORAL TWICE DAILY Losartan Potassium (Cozaar) 25 MG TABLET 1 Tablet ORAL DAILY Pravastatin Sodium (Pravastatin Sodium) 10 MG TABLET 1 Tablet ORAL DAILY Qty = 90 Comments: PER PT MED LIST Multivitamin (Multi-Day Vitamins) 1 EACH TABLET 1 Tablet ORAL DAILY Comments: PER PT Vit A,C & E/Lutein/Minerals (Ocuvite With Lutein Tablet) 1 EACH TABLET 1 Tablet ORAL DAILY Comments: PER PT MED LIST Furosemide (Furosemide) 40 MG TABLET 1 Tablet ORAL DAILY Start taking the following new medications: Oxycodone HCl/Acetaminophen (Percocet 5-325 MG Tablet) 5 MG-325 MG TABLET 1 Tablet ORAL EVERY 4 HOURS NEEDED as needed for PAIN SCALE 4-6 (MODERATE ) Qty = 10 No Refills Instructions: not to exceed more than 3000 mg of acetaminophen daily Acetaminophen (Tylenol) 325 MG TABLET 650 Milligram ORAL EVERY 4 HOURS NEEDED as needed for PAIN SCALE 1-3 ( MILD) Days = 10 No Refills Instructions: Not to exceed more than 3000 mg of acetaminophen daily Polyethylene Glycol 3350 (Miralax) 17 GRAM POWD.PACK 1 Packet ORAL DAILY Qty = 30 No Refills Instructions: dissolve in water Docusate Sodium (Docusate Sodium) 100 MG CAPSULE 1 Capsule ORAL TWICE DAILY Qty = 30 No Refills Sennosides (Senna) 8.6 MG TABLET 2 Tablet ORAL DAILY Qty = 60 No Refills Copies To: KARLI DE JESUS,LEENA Antunez
[2017-04-02 10:04] LABS: ABSOLUTE LYMPH COUNT 1.1 /CUMM (1.2-3.4); ABSOLUTE MONOCYTE COUNT 0.6 /CUMM (0.10-0.60); BASOPHIL % 0.3 % (0.0-2.0); MEAN CORPUSCULAR HGB 32.8 PG (27.0-31.0); MEAN CORPUSCULAR HGB CONC 33.3 G/DL (33.0-37.0); MEAN CORPUSCULAR VOLUME 98.6 FL (81.0-99.0); MEAN PLATELET VOLUME 8.4 FL (7.4-10.4); PLATELET COUNT 165 /CUMM (130-400); RBC DISTRIBUTION WIDTH 15.7 % (11.5-14.5); RED BLOOD CELL CT 2.53 /CUMM (4.20-5.40); WHITE BLOOD CELL COUNT 11.3 /CUMM (4.8-10.8)
[2017-04-02 10:22] LABS: ABSOLUTE BASOPHIL COUNT 0 /CUMM (0.0-0.2); ABSOLUTE EOSINOPHIL COUNT 0.3 /CUMM (0.0-0.7); ABSOLUTE GRANULOCYTE CT 9.2 /CUMM (1.4-6.5); EOSINOPHIL % 2.5 % (0-5); GRANULOCYTE % 82.2 % (42.2-75.2)
[2017-04-02 14:49] VITALS: BP 134/60
[2017-04-02] MEDS ORDERED: PERCOCET 5-3251 EACH PO (14:54)
[2017-04-02 15:12] VITALS: BP 108/60
== END 2017-04-02 15:35 | DRG 481 ==
LOC: ERH 10:11 → 2NA 12:12 → ERHI 12:12 → ENRESERV 13:12 → ENTRNSPT 14:07 → EDTRNSPTSTS 14:16 → EDTRNSPTTYP 14:16 → CMPTRNSPT 14:40 → 2NA 14:51 → ENPENDDIS 04-02 12:57 → 2NA 04-02 15:35
PROVIDERS: Internal Medicine; Internal Medicine Nephrology; Orthopaedic Surgery; Physician Assistant Medical; Physician Assistant Surgical; Radiology Diagnostic Radiology; ADMIT Internal Medicine
PROC: 0QS706Z Reposition Left Upper Femur with Intramedullary Internal Fixation Device, Open Approach (ICD-10-PCS; principal; 2017-03-30)
PROC: 0QS704Z Reposition Left Upper Femur with Internal Fixation Device, Open Approach (ICD-10-PCS; principal; 2017-03-30)
DX: S72.142A Displaced intertrochanteric fracture of left femur, initial encounter for closed fracture (principal); N17.9 Acute kidney failure, unspecified; I95.9 Hypotension, unspecified; I50.32 Chronic diastolic (congestive) heart failure; I27.2 Other secondary pulmonary hypertension; I11.0 Hypertensive heart disease with heart failure; Z99.81 Dependence on supplemental oxygen; J44.9 Chronic obstructive pulmonary disease, unspecified; I48.2 Chronic atrial fibrillation; D62 Acute posthemorrhagic anemia; S72.22XA Displaced subtrochanteric fracture of left femur, initial encounter for closed fracture; W01.0XXA Fall on same level from slipping, tripping and stumbling without subsequent striking against object, initial encounter; Y92.009 Unspecified place in unspecified non-institutional (private) residence as the place of occurrence of the external cause; E03.9 Hypothyroidism, unspecified; E78.5 Hyperlipidemia, unspecified; K59.00 Constipation, unspecified; M81.0 Age-related osteoporosis without current pathological fracture; Z79.01 Long term (current) use of anticoagulants; Z85.3 Personal history of malignant neoplasm of breast; Z95.0 Presence of cardiac pacemaker
CPT/HCPCS: 2NASP; 36415; 73502-LT; 73610-LT; 82436; 86920; 86922; 87086; 93005; 93010; 96365; 96375; 97110-GO; 97161-GP; 97530-GO; C9399; J0131; J0690; J1100; J1644; J2405; J2765; J7040; J7042; P9016

== ENCOUNTER 2017-05-09 14:48 | Inpatient (IN) | payer OTHER ==
[~2017-05-09] VITALS: Ht 162.6 cm; Wt 106.6 kg
[~2017-05-09 14:48] MED LIST changes: +DOCUSATE SODIU100 M3 PO; +FUROSEMIDE40 M1 PO; +MIRALAX17 G1 PO; +PERCOCET 5-3251 EACH PO; +SENNA8.6 M3 PO; +TYLENOL325 M1 PO
--- NOTE | 2017-05-09 15:04 | NUR ---
GREG FROM [facility] FOR TMAX 100.7 TODAY, C/O LETHARGY/DYSURIA/HIP INCISION WITH PURULENT DRAINAGE AND ERYTHEMA SURROUNDING WOUND DESPITE INCISION BEING FULLY APPROXIMATED AND GENERALLY HEALING WELL.
--- NOTE | 2017-05-09 15:04 | NUR ---
SEEN BY PUMA WERNER.
--- NOTE | 2017-05-09 15:11 | NUR ---
PCXR IN PROGRESS
--- NOTE | 2017-05-09 15:18 | ED GENERAL ADULT ---
History of Present Illness General Chief Complaint: General Adult Stated Complaint: BIBA LETHARGY, FEVER Source: patient, old records Exam Limitations: no limitations Vital Signs & Intake/Output Vital Signs & Intake/Output Vital Signs Date Time Temp Pulse Resp B/P B/P Pulse O2 O2 Flow FiO2 Mean Ox Delivery Rate 05/09 2111 98.0 74 20 158/64 91 Room Air 05/09 1846 98.9 78 20 146/73 96 Room Air 05/09 1748 99.1 82 18 165/80 95 Room Air 05/09 1505 94 05/09 1458 99.3 74 20 161/77 94 Room Air Allergies Coded Allergies: coconut oil (ITCHING ALL OVER 07/31/16) codeine ("MY BP GOES WAY DOWN" 07/31/16) Reconcile Medications Acetaminophen (Acephen) 650 MG SUPP.RECT 1 SUPP WA Q6H PRN PAIN/TEMP>101 ( Reported) Acetaminophen (Tylenol) 325 MG TABLET 2 TAB PO Q6H PRN PAIN/TEMP>101 ( Reported) Bisacodyl (Dulcolax) 10 MG SUPP.RECT 1 SUP RC DAILY PRN CONSTIPATION ( Reported) Dabigatran Etexilate Mesylate (Pradaxa 150 MG) 150 MG CAPSULE 1 CAP PO BID BLOOD THINNER (Reported) Docusate Sodium 100 MG CAPSULE 1 CAP PO BID constipation Furosemide 40 MG TABLET 1 TAB PO DAILY CHF (Reported) Levothyroxine Sodium (Synthroid) 175 MCG TABLET 1 TAB PO DAILY AC THYROID ( Reported) Losartan Potassium (Cozaar) 25 MG TABLET 1 TAB PO DAILY BP (Reported) Magnesium Hydroxide (Milk Of Magnesia) 400 MG/5 ML ORAL.SUSP 30 ML PO Q3D PRN CONSTIPATION (Reported) Metoprolol Succinate 50 MG TAB.ER.24H 1 TAB PO DAILY BP (Reported) Multivitamin (Multi-Day Vitamins) 1 EACH TABLET 1 TAB PO DAILY SUPPLEMENT ( Reported) Na Phos,M-B/Na Phos,Di-Ba (Fleet Enema) 19 GRAM-7 GRAM/118 ML ENEMA 1 E RC DAILY PRN CONSTIPATION (Reported) Naloxone HCl (Narcan) 4 MG/ACTUATION SPRAY 4 MG JERRY AD PRN OPIOID INDUCED RESP. DEPRESSIO (Reported) Oxycodone HCl/Acetaminophen (Percocet 5-325 MG Tablet) 5 MG-325 MG TABLET 2 TAB PO Q4H PRN SEVERE PAIN (Reported) Oxycodone HCl/Acetaminophen (Percocet 5-325 MG Tablet) 5 MG-325 MG TABLET 1 TAB PO Q4P PRN PAIN SCALE 4-6 (MODERATE) not to exceed more than 3000 mg of acetaminophen daily Paroxetine HCl 40 MG TABLET 1 TAB PO DAILY DEPRESSION (Reported) Polyethylene Glycol 3350 (Miralax) 17 GRAM POWD.PACK 1 PAC PO DAILY constipation dissolve in water Pravastatin Sodium 10 MG TABLET 1 TAB PO DAILY CHOLESTEROL (Reported) Sennosides (Senna) 8.6 MG TABLET 2 TAB PO DAILY constipation Umeclidinium Brm/Vilanterol Tr (Anoro Ellipta 62.5-25 Mcg INH) 62.5 MCG-25 MCG/ ACTUATION BLST.W.DEV 1 PUFF INH DAILY RESPIRATORY (Reported) Vit A,C & E/Lutein/Minerals (Ocuvite With Lutein Tablet) 1 EACH TABLET 1 TAB PO DAILY SUPPLEMENT (Reported) Triage Note: BIBA FROM [facility] FOR TMAX 100.7 TODAY, C/O LETHARGY/DYSURIA/HIP INCISION WITH PURULENT DRAINAGE AND ERYTHEMA SURROUNDING WOUND DESPITE INCISION BEING FULLY APPROXIMATED AND GENERALLY HEALING WELL. Triage Nurses Notes Reviewed? yes Onset: Abrupt (`) Duration: day(s): (1), constant Timing: recent history Injury Environment: home Severity: moderate Severity Numbers: 7 No Modifying Factors: none Associated Symptoms: denies HPI: 81-year-old female history of chronic atrial fibrillation (anticoagulated with Pradaxa), sick sinus syndrome, status post pacemaker implantation 2 years prior, hypothyroidism and COPD not on home oxygen, pulmonary hypertension, recent left hip arthroplasty presents [facility] in from [facility] after the patient was noted to have a fever of 100.7 increased lethargy and drainage redness around her surgical incision. Patient had outpatient x-rays of her hip and chest performed yesterday which were unremarkable she had bloodwork which revealed a normal white blood cell count. She denies chest pain abdominal pain nausea vomiting diarrhea. The patient has a baseline history of urinary incontinence no urinary complaints. She is otherwise without any complaints at this time (ALPHONSO BARTHOLOMEW,EASTON) Past History Travel History Traveled to [place] past 21 day No Medical History Any Pertinent Medical History? see below for history Neurological: NONE EENT: NONE Cardiovascular: AFIB, CHF, hypertension, hyperlipidemia, PACEMAKER CAROTID STENTS PER PT PACEMAKER pulmonary htn SICK SINUS Respiratory: COPD Gastrointestinal: NONE Hepatic: NONE Renal: NONE Musculoskeletal: NONE Psychiatric: NONE Endocrine: HYPOTHYROID Blood Disorders: NONE Cancer(s): breast cancer DRAG SEINER/Reproductive: NONE History of MRSA: No History of VRE: No History of CDIFF: No Surgical History Surgical History: STAUS POST THYROIDECTOMY s/p left ankle orif (Right CEA/ Appendectomy and ch) Psychosocial History Who do you live with Spouse Services at Home None What is your primary language Greek Tobacco Use: Quit >30 days ago Family History Family History, If Any: FATHER, . SISTER MOTHER MOTHER Relation not specified for: FH: CHF (congestive heart failure) FH: hypertension FH: kidney disease Hx Contributory? No (EASTON GANDHI) Review of Systems Review of Systems Constitutional: Reports: see HPI. All Other Systems: Reviewed and Negative Comments Review of systems: See HPI, All other systems negative. Constitutional, no chills no fever, no malaise no weight loss HEENT: No visual changes no sore throat no congestion, no ear pain Cardiovascular: No chest pain , no palpitation , no orthopnea Skin: no rashes, no change in skin Respiratory: No dyspnea no cough no sputum no hemoptysis GI: No nausea no vomiting, no diarrhea, no bloating/constipation : No dysuria No hematuria, no frequency, no discharge Muscle skeletal: No joint pain, no joint swelling, no back pain, no neck pain, Neurologic: No numbness no confusion, no headache Psych: No stress no depression,. Heme/endocrine: No bruising no bleeding Immunology: No lymphadenopathy (EASTON GANDHI) Physical Exam Physical Exam General Appearance: well developed/nourished, alert, awake Comments: Well-developed well-nourished person in no acute distress HEENT: Normal EENT exam; PERRL, EOMI, HEAD is atraumatic. moist mucous membranes. Neck: Supple, normal range of motions Back: Nontender Full range of motion Cardiovascular: Regular rate and rhythms no murmurs rubs Respiratory: Chest nontender.There were no bony deformities, no asymmetry. No respiratory distress. Patient speaking in full complete sentences. Breath sounds clear to auscultation bilaterally: NO W/R/R Abdomen: Soft, nontender nondistended, no appreciable organomegaly. Normal bowel sounds. No rebound/guarding, No appreciable enlargement of the abdominal aorta, No ascites. Extremity: There is moderate erythema, WARMTH and weeping clear discharge from the proximal aspect of the left lateral incision, tender to palpation, No crepitus, patient has full range motion of the hip , full range of motion of extremities, normal and equal pulses bilaterally, 5 out of 5 strength noted to bilateral upper and lower extremities Neuro: Alert oriented x3, motor sensory normal, There were no obvious focal neurologic abnormalities. Skin: No appreciable rash on exposed skin, skin is warm and dry. Psych: Mood and affect is normal, memory and judgment is normal. Core Measures ACS in differential dx? No CVA/TIA Diagnosis: No Severe Sepsis Present: No Septic Shock Present: No (ALPHONSO BARTHOLOMEW,EASTON) Progress Differential Diagnoses I considered the following diagnoses in my evaluation of the patient: Cellulitis UTI pneumonia electrode abnormality Plan of Care: Orders Procedure Date/time Status Heart Healthy Diet 05/10 B Active Vital Signs 05/09 2104 Active Teach/Educate 05/09 2104 Active Pain Treatment and Response 05/09 2104 Active Nutritional Intake, Monitor 05/09 2104 Active Isolation 05/09 2104 Active Intake & Output 05/09 210 Active Patient Care Conference 05/09 2104 Active Activity/Ambulation 05/09 2104 Active Patient Data 05/09 1852 Active ED Holding Orders 05/09 1842 Active Admit to inpatient 05/09 1842 Active Vital Signs 05/09 1842 Active Code Status 05/09 1842 Active Intake & Output 05/09 1543 Active Straight Cath 05/09 1507 Active CULTURE,URINE 05/09 1507 Active BLOOD CULTURE 05/09 1507 Active URINALYSIS 05/09 1507 Complete LACTIC ACID 05/09 1507 Complete COMPREHENSIVE METABOLIC PANEL 05/09 1507 Complete CBC WITHOUT DIFFERENTIAL 05/09 1507 Complete Laboratory Tests 05/09/17 1807: Lactic Acid Cancelled 05/09/17 1530: Urine Color YEL, Urine Clarity HAZY H, Urine pH 6.5, Ur Specific Joes 1.010, Urine Protein TRACE H, Urine Ketones NEG, Urine Nitrite NEG, Urine Bilirubin NEG, Urine Urobilinogen 2.0 H, Ur Leukocyte Esterase MOD H, Ur Microscopic SEDIMENT EXAMINED, Urine RBC 10-15 H, Urine WBC 15-25 H, Ur Epithelial Cells OCCAS, Urine Bacteria PACKD H, Urine Mucus RARE, Urine Hemoglobin MOD H, Urine Glucose NEG 05/09/17 1525: Anion Gap 13, Estimated GFR > 60, BUN/Creatinine Ratio 11.7, Glucose 100 H, Lactic Acid 1.8, Calcium 9.2, Total Bilirubin 1.1, AST 27, ALT 24, Alkaline Phosphatase 222 H, Total Protein 7.1, Albumin 3.7, Globulin 3.4, Albumin/ Globulin Ratio 1.1, CBC w Diff NO MAN DIFF REQ, RBC 3.70 L, MCV 98.3, MCH 31.3 H, RDW 16.8 H, MPV 7.9, Gran % 78.1 H, Lymphocytes % 11.5 L, Monocytes % 8.8, Eosinophils % 1.3, Basophils % 0.3, Absolute Granulocytes 8.7 H, Absolute Lymphocytes 1.3, Absolute Monocytes 1.0 H, Absolute Eosinophils 0.1, Absolute Basophils 0, PUBS MCHC 31.8 L Microbiology 05/09 1740 BLOOD: Blood Culture - RECD 05/09 1530 URINE ROUT: Urine Culture - RECD 05/09 1525 BLOOD: Blood Culture - RECD Labs ordered old records reviewed case discussed with Dr. Beal the x-rays were reviewed from yesterday the chest x-ray showed no significant acute lesion seen no acute consolidation. The left hip x-ray showed no clinically significant acute displaced fracture prior left hip orif changes stable CAT scan ordered calls placed to the patient's orthopedist Dr. Mayorga. d/.w dr gomez he advised to withhold antibiotics at this time patient will need IR drainage possible seroma versus abscess, given other medical conditions advised patient should be admitted to the house staff I spoke with Dr. woody will admit I Spoke with surgical pa lemuel will consult I spoke with the patient and her daughter at length all her results. I discussed with the patient at length all of their results. I answered all of their questions, they feel comfortable with the plan and follow-up care. (ALPHONSO BARTHOLOMEW,EASTON) Diagnostic Imaging: Viewed by Me: Radiology Read, CT Scan. Discussed w/RAD: Radiology Read, CT Scan. Radiology Impression: PATIENT: RUBÉN ANG PRESENT AGE: 81 PATIENT ACCOUNT NO: [id number] : 35 LOCATION: [facility], [place] ORDERING PHYSICIAN: EASTON BARTHOLOMEW SERVICE DATE: 05/09/17 EXAM TYPE: RAD - XRY-PORTABLE CHEST XRAY EXAMINATION: XR PORTABLE CHEST CLINICAL INFORMATION: Cough and congestion with fever. COMPARISON: 03/28/2017, 2013. TECHNIQUE: Portable 85 degree upright view of the chest was obtained. FINDINGS: The cardiomediastinal silhouette is unremarkable. Heart remains enlarged with a single pacer lead in the right ventricle with the generator on the right. The lungs and pleural spaces appear clear without evidence of congestion, consolidation, or significant appearing effusion or atelectasis. There is no evidence of pneumothorax or pulmonary edema. Included osseous structures demonstrate degenerative changes in the right shoulder and cervical spine. IMPRESSION: Cardiomegaly, no acute intrathoracic process is seen. DICTATED BY: KEITH DRIVER MD DATE/TIME DICTATED:05/09/171539 TOGGLE PRESS FOLDER AND FEEDER:MAGGY DATE/TIME TRANSCRIBED:05/09/171539 CONFIDENTIAL, DO NOT COPY WITHOUT APPROPRIATE AUTHORIZATION. <Electronically signed in Other Vendor System> SIGNED BY: KEITH DRIVER MD 05/09/17 1614, PATIENT: RUBÉN ANG PRESENT AGE: 81 PATIENT ACCOUNT NO : [id number] : 35 LOCATION: [facility], [place] ORDERING PHYSICIAN: EASTON BARTHOLOMEW SERVICE DATE: 05/09/17 EXAM TYPE: CAT - CT PELVIS W IV CONTRAST EXAMINATION : CT PELVIS WITH IV CONTRAST CLINICAL INFORMATION: Recent left hip fracture. Redness and discharge from the incision. COMPARISON: None. TECHNIQUE: Helical scanning was performed with submillimeter collimation through the pelvis with 95 mL of Optiray 320 intravenous contrast. Sagittal and coronal multiplanar 2-D reconstructions were obtained. DLP: 800.72 mGy-cm FINDINGS: Status post left hip replacement. This causes streak artifact. In the subcutaneous tissue at the left side of the hip there is a large fluid collection. This measures about 27 cm of length and about 11 cm transverse by 6 cm AP. This has density measurement of 11 Hounsfield units, just above simple fluid. There is now air in this collection. Differential diagnosis would be a postoperative fluid collection/seroma and less likely abscess as there is no air collection. This could be aspirated percutaneously. There is no intrapelvic inflammation or fluid collections. Fat planes are normal. There is ventral wall hernia containing fat only at the lower umbilicus. Vascular stent in the distal aorta extending into the iliac vessels. There are a few diverticula of the left colon sigmoid but no diverticulitis. No acute change of the visualized bowel. Bladder unremarkable. There is degenerative disc disease of lower lumbar spine with disc height narrowing and facet joint arthrosis. Degenerative joint disease of right hip with joint space narrowing and spurring of acetabula. IMPRESSION: Status post left hip replacement. Large subcutaneous fluid collection in the soft tissues lateral to the left hip. This could be aspirated percutaneously. DICTATED BY: ISIS MONTANO MD DATE/TIME DICTATED:05/09/171752 TOGGLE PRESS FOLDER AND FEEDER:MAGGY DATE/TIME TRANSCRIBED:05/09/171752 CONFIDENTIAL, DO NOT COPY WITHOUT APPROPRIATE AUTHORIZATION. <Electronically signed in Other Vendor System> SIGNED BY: ISIS MONTANO MD 05/09/171811 Initial ED EKG: none (EASTON GANDHI) Departure Departure Time of Disposition: 1842 Condition: Stable Clinical Impression Primary Impression: Infected wound Secondary Impressions: Cellulitis Referrals: KATERINA LEON MD (PCP/Family) Departure Forms: Customer Survey General Discharge Information Admission Note Spoke With: TREASURE PATEL MD Documentation of Exam: Documentation of any treatments & extenuating circumstances including Concerns Regarding Discharge (functional status, medication knowledge or non-compliance, living conditions, etc.) that warrant an admission rather than observation: Trend labs cultures patient will need IR drainage, wound cultures premature discharge and be medically harmful orthopedic consult (EASTON GANDHI) Departure Disposition: STILL A PATIENT PA/MANAGER [employer]TEGR[employer] Co-Sign Statement Statement: ED Attending supervision documentation- [X] I saw and evaluated the patient. I have also reviewed all the pertinent lab results and diagnostic results. I agree with the findings and the plan of care as documented in the PA's/MANAGER INTEGRATED's documentation. [X] I have reviewed the ED Record and agree with the PA's/MANAGER [employer]TEGR[employer]'s documentation. [] Additions or exceptions (if any) to the PAs/MANAGER [employer]TE[employer]'s note and plan are summarized below: [] (MONTEZ DE JESUS,LOTUS) Critical Care Note Critical Care Note Critical Care Time: non-applicable (EASTON GANDHI)
--- NOTE | 2017-05-09 15:46 | NUR ---
1ST SET BLD CX SENT WITH SST/LAV/BLUE/HUERTAS/PINK. ST CATH FOR 200CC CLEAR MED YELLOW, URINE TRIO ALSO SENT.
[2017-05-09 15:49] LABS: ABSOLUTE BASOPHIL COUNT 0 /CUMM (0.0-0.2); ABSOLUTE EOSINOPHIL COUNT 0.1 /CUMM (0.0-0.7); ABSOLUTE GRANULOCYTE CT 8.7 /CUMM (1.4-6.5); ABSOLUTE LYMPH COUNT 1.3 /CUMM (1.2-3.4); BASOPHIL % 0.3 % (0.0-2.0); EOSINOPHIL % 1.3 % (0-5); GRANULOCYTE % 78.1 % (42.2-75.2); HEMATOCRIT 36.4 % (37-47); MEAN CORPUSCULAR HGB 31.3 PG (27.0-31.0); MEAN CORPUSCULAR HGB CONC 31.8 G/DL (33.0-37.0); MEAN CORPUSCULAR VOLUME 98.3 FL (81.0-99.0); MEAN PLATELET VOLUME 7.9 FL (7.4-10.4); PLATELET COUNT 381 /CUMM (130-400); RBC DISTRIBUTION WIDTH 16.8 % (11.5-14.5); WHITE BLOOD CELL COUNT 11.2 /CUMM (4.8-10.8)
--- NOTE | 2017-05-09 16:14 | RADIOLOGY REPORT ---
EXAMINATION: XR PORTABLE CHEST CLINICAL INFORMATION: Cough and congestion with fever. COMPARISON: 03/28/2017, 04/07/2014. TECHNIQUE: Portable 85 degree upright view of the chest was obtained. FINDINGS: The cardiomediastinal silhouette is unremarkable. Heart remains enlarged with a single pacer lead in the right ventricle with the generator on the right. The lungs and pleural spaces appear clear without evidence of congestion, consolidation, or significant appearing effusion or atelectasis. There is no evidence of pneumothorax or pulmonary edema. Included osseous structures demonstrate degenerative changes in the right shoulder and cervical spine. IMPRESSION: Cardiomegaly, no acute intrathoracic process is seen.
[2017-05-09] MEDS ORDERED: ACEPHEN650 M1 PR (16:31)
[2017-05-09] MEDS ORDERED: TYLENOL325 M1 PO (16:33)
[2017-05-09] MEDS ORDERED: FLEET ENEMA133 ML RC (16:34)
[2017-05-09] MEDS ORDERED: DULCOLAX10 M1 RC (16:34)
[2017-05-09] MEDS ORDERED: PERCOCET 5-3251 EACH PO (16:34)
[2017-05-09] MEDS ORDERED: MILK OF MA400 MG/52 PO (16:35)
--- NOTE | 2017-05-09 17:26 | NUR ---
PT AT CT SCAN, PER VERBAL ORDER FROM PUMA WERNER/DR HERRMANN, MAY DRAW 2ND SET BLD CX FROM LEFT SIDE (S/P MASTECTOMY 1996).
[2017-05-09] MEDS ORDERED: NARCAN4 MG NAS (17:37)
[2017-05-09] MEDS ORDERED: ANORO ELLIPTA1 EACH INH (17:38)
--- NOTE | 2017-05-09 17:46 | NUR ---
LAB CALLED TO INFORM THAT PT IS A DIFFICULT STICK AND THAT ONLY THE BLUE TUBE WAS DRAWN
--- NOTE | 2017-05-09 18:12 | CT SCAN REPORT ---
EXAMINATION: CT PELVIS WITH IV CONTRAST CLINICAL INFORMATION: Recent left hip fracture. Redness and discharge from the incision. COMPARISON: None. TECHNIQUE: Helical scanning was performed with submillimeter collimation through the pelvis with 95 mL of Optiray 320 intravenous contrast. Sagittal and coronal multiplanar 2-D reconstructions were obtained. DLP: 800.72 mGy-cm FINDINGS: Status post left hip replacement. This causes streak artifact. In the subcutaneous tissue at the left side of the hip there is a large fluid collection. This measures about 27 cm of length and about 11 cm transverse by 6 cm AP. This has density measurement of 11 Hounsfield units, just above simple fluid. There is now air in this collection. Differential diagnosis would be a postoperative fluid collection/seroma and less likely abscess as there is no air collection. This could be aspirated percutaneously. There is no intrapelvic inflammation or fluid collections. Fat planes are normal. There is ventral wall hernia containing fat only at the lower umbilicus. Vascular stent in the distal aorta extending into the iliac vessels. There are a few diverticula of the left colon sigmoid but no diverticulitis. No acute change of the visualized bowel. Bladder unremarkable. There is degenerative disc disease of lower lumbar spine with disc height narrowing and facet joint arthrosis. Degenerative joint disease of right hip with joint space narrowing and spurring of acetabula. IMPRESSION: Status post left hip replacement. Large subcutaneous fluid collection in the soft tissues lateral to the left hip. This could be aspirated percutaneously.
--- NOTE | 2017-05-09 19:27 | NUR ---
PT TO ROOM 223 BED 2
--- NOTE | 2017-05-09 20:02 | NUR ---
MOD PAGED REGARDING PT REQUESTS FOR PAIN MEDS; STATES HOUSE STAFF IS IN SIGNOUT AND WILL ENTER ORDERS AFTER EVALUATING PT WHICH SHOULD BE DONE IN THE NEXT 15-30 MIN. PT/DTR AWARE.
--- NOTE | 2017-05-09 20:30 | Cons- Orthopedic ---
General Information and HPI Consulting Request Date of Consult: 05/09/17 Requested By: TREASURE PATEL MD Reason for Consult: Left hip surgical wound infection Source of Information: patient, family Exam Limitations: no limitations History of Present Illness: Ms. Moreno is a 81-year-old woman, resident of area group home, with a past medical history of chronic atrial fibrillation (anticoagulated with Pradaxa), sick sinus syndrome, status post pacemaker implantation 2 years back, hypothyroidism and COPD on home oxygen as weLL all, pulmonary hypertension with RV pressures greater than 50 on the last echo in 2015, who presented to the [facility] with temperature to 101.9, lethargy, left hip wound drainage ( status post ORIF left intertrochanteric hip fracture 03/30/2017), and complaints of burning with urination for 2 days. Since surgery the patient has been nonambulatory because of restrictions placed by Dr. Mayorga the operating orthopedic surgeon. She states that the drainage in her left hip wound began a few days ago and has not become red and tender to touch at the skin. CAT scan of the left thigh reveals a fluid collection in the left thigh at the site of the drainage. Her urinalysis in the emergency room is also suggestive of urinary tract infection Allergies/Medications Allergies: Coded Allergies: coconut oil (ITCHING ALL OVER 07/31/16) codeine ("MY BP GOES WAY DOWN" 07/31/16) Home Med List: Acetaminophen (Acephen) 650 MG SUPP.RECT 1 SUPP ME Q6H PRN PAIN/TEMP>101 ( Reported) Acetaminophen (Tylenol) 325 MG TABLET 2 TAB PO Q6H PRN PAIN/TEMP>101 ( Reported) Bisacodyl (Dulcolax) 10 MG SUPP.RECT 1 SUP RC DAILY PRN CONSTIPATION ( Reported) Dabigatran Etexilate Mesylate (Pradaxa 150 MG) 150 MG CAPSULE 1 CAP PO BID BLOOD THINNER (Reported) Docusate Sodium 100 MG CAPSULE 1 CAP PO BID constipation Furosemide 40 MG TABLET 1 TAB PO DAILY CHF (Reported) Levothyroxine Sodium (Synthroid) 175 MCG TABLET 1 TAB PO DAILY AC THYROID ( Reported) Losartan Potassium (Cozaar) 25 MG TABLET 1 TAB PO DAILY BP (Reported) Magnesium Hydroxide (Milk Of Magnesia) 400 MG/5 ML ORAL.SUSP 30 ML PO Q3D PRN CONSTIPATION (Reported) Metoprolol Succinate 50 MG TAB.ER.24H 1 TAB PO DAILY BP (Reported) Multivitamin (Multi-Day Vitamins) 1 EACH TABLET 1 TAB PO DAILY SUPPLEMENT ( Reported) Na Phos,M-B/Na Phos,Di-Ba (Fleet Enema) 19 GRAM-7 GRAM/118 ML ENEMA 1 E RC DAILY PRN CONSTIPATION (Reported) Naloxone HCl (Narcan) 4 MG/ACTUATION SPRAY 4 MG JERRY AD PRN OPIOID INDUCED RESP. DEPRESSIO (Reported) Oxycodone HCl/Acetaminophen (Percocet 5-325 MG Tablet) 5 MG-325 MG TABLET 2 TAB PO Q4H PRN SEVERE PAIN (Reported) Oxycodone HCl/Acetaminophen (Percocet 5-325 MG Tablet) 5 MG-325 MG TABLET 1 TAB PO Q4P PRN PAIN SCALE 4-6 (MODERATE) not to exceed more than 3000 mg of acetaminophen daily Paroxetine HCl 40 MG TABLET 1 TAB PO DAILY DEPRESSION (Reported) Polyethylene Glycol 3350 (Miralax) 17 GRAM POWD.PACK 1 PAC PO DAILY constipation dissolve in water Pravastatin Sodium 10 MG TABLET 1 TAB PO DAILY CHOLESTEROL (Reported) Sennosides (Senna) 8.6 MG TABLET 2 TAB PO DAILY constipation Umeclidinium Brm/Vilanterol Tr (Anoro Ellipta 62.5-25 Mcg INH) 62.5 MCG-25 MCG/ ACTUATION BLST.W.DEV 1 PUFF INH DAILY RESPIRATORY (Reported) Vit A,C & E/Lutein/Minerals (Ocuvite With Lutein Tablet) 1 EACH TABLET 1 TAB PO DAILY SUPPLEMENT (Reported) Past History Medical History Neurological: NONE EENT: NONE Cardiovascular: AFIB, CHF, hypertension, hyperlipidemia, PACEMAKER CAROTID STENTS PER PT PACEMAKER pulmonary htn SICK SINUS Respiratory: COPD Gastrointestinal: NONE Hepatic: NONE Renal: NONE Musculoskeletal: NONE Psychiatric: NONE Endocrine: HYPOTHYROID Blood Disorders: NONE Cancer(s): 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 SISTER MOTHER MOTHER Relation not specified for: FH: CHF (congestive heart failure) FH: hypertension FH: kidney disease Psychosocial History Services at Home: None Primary Language: Slovenian Functional Ability Ambulation: walker Exam & Diagnostic Data Vital Signs and I&O Vital Signs Date Time Temp Pulse Resp B/P B/P Pulse O2 O2 Flow FiO2 Mean Ox Delivery Rate 05/09 1846 98.9 78 20 146/73 96 Room Air 05/09 1748 99.1 82 18 165/80 95 Room Air 05/09 1505 94 05/09 1458 99.3 74 20 161/77 94 Room Air Intake & Output 05/09 1600 05/09 0800 05/09 0000 05/08 1600 05/08 0800 05/08 0000 Intake Total Output Total 200 Balance -200 Output, Urine 200 Patient 235 lb Weight Weight Reported by Patient Measurement Method Physical Exam General Appearance: lethargic, mild distress Head: normal appearance Eyes: Bilateral: PERRL. Respiratory: accessory muscle use Cardiovascular: irregularly irregular Peripheral Pulses: 4+ dorsalis pedis (R), 4+ dorsalis pedis (L) Gastrointestinal: normal bowel sounds, soft, non-tender Extremities: left hip is covered with a bandage that was removed, with purulent green drainage on dressing. The area around the incision is tender to touch and erythematous. There is no calf tenderness distally. There is no fluid expressed from the wound. The distal thigh wound at the end of the locking nail is clean dry and intact Last 24 Hours of Labs: Laboratory Tests 05/09 05/09 1807 1530 Chemistry Lactic Acid Cancelled Urines Urine Color (YEL,AMB,STR) YEL Urine Clarity (CLEAR) HAZY H Urine pH (5.0 - 8.0) 6.5 Ur Specific [place] (1.001 - 1.035) 1.010 Urine Protein (NEG,<30 MG/DL) TRACE H Urine Ketones (NEG) NEG Urine Nitrite (NEG) NEG Urine Bilirubin (NEG) NEG Urine Urobilinogen (0.1 - 1.0 EU/dl) 2.0 H Ur Leukocyte Esterase (NEG) MOD H Ur Microscopic SEDIMENT EXAMINED Urine RBC (0 - 5 /HPF) 10-15 H Urine WBC (0 - 2 /HPF) 15-25 H Ur Epithelial Cells (NONE,FEW) OCCAS Urine Bacteria (NEG/NONE) PACKD H Urine Mucus (FEW,NONE) RARE Urine Hemoglobin (NEG) MOD H Urine Glucose (N MG/DL) NEG 05/09 1525 Chemistry Sodium (137 - 145 mmol/L) 135 L Potassium (3.5 - 5.1 mmol/L) 3.3 L Chloride (98 - 107 mmol/L) 91 L Carbon Dioxide (22 - 30 mmol/L) 31 H Anion Gap (5 - 16) 13 BUN (7 - 17 mg/dL) 7 Creatinine (0.5 - 1.0 mg/dL) 0.6 Estimated GFR (>60 ml/min) > 60 BUN/Creatinine Ratio (7 - 25 %) 11.7 Glucose (65 - 99 mg/dL) 100 H Lactic Acid (0.7 - 2.1 mmol/L) 1.8 Calcium (8.4 - 10.2 mg/dL) 9.2 Total Bilirubin (0.2 - 1.3 mg/dL) 1.1 AST (14 - 36 U/L) 27 ALT (9 - 52 U/L) 24 Alkaline Phosphatase (<127 U/L) 222 H Total Protein (6.3 - 8.2 g/dL) 7.1 Albumin (3.5 - 5.0 g/dL) 3.7 Globulin (1.9 - 4.2 gm/dL) 3.4 Albumin/Globulin Ratio (1.1 - 2.2 %) 1.1 Hematology CBC w Diff NO MAN DIFF REQ WBC (4.8 - 10.8 /CUMM) 11.2 H RBC (4.20 - 5.40 /CUMM) 3.70 L Hgb (12.0 - 16.0 G/DL) 11.6 L Hct (37 - 47 %) 36.4 L MCV (81.0 - 99.0 FL) 98.3 MCH (27.0 - 31.0 PG) 31.3 H RDW (11.5 - 14.5 %) 16.8 H Plt Count (130 - 400 /CUMM) 381 MPV (7.4 - 10.4 FL) 7.9 Gran % (42.2 - 75.2 %) 78.1 H Lymphocytes % (20.5 - 51.1 %) 11.5 L Monocytes % (1.7 - 9.3 %) 8.8 Eosinophils % (0 - 5 %) 1.3 Basophils % (0.0 - 2.0 %) 0.3 Absolute Granulocytes (1.4 - 6.5 /CUMM) 8.7 H Absolute Lymphocytes (1.2 - 3.4 /CUMM) 1.3 Absolute Monocytes (0.10 - 0.60 /CUMM) 1.0 H Absolute Eosinophils (0.0 - 0.7 /CUMM) 0.1 Absolute Basophils (0.0 - 0.2 /CUMM) 0 PUBS MCHC (33.0 - 37.0 G/DL) 31.8 L Imaging Results: SERVICE DATE: 05/09/17 EXAM TYPE: CAT - CT PELVIS W IV CONTRAST EXAMINATION: CT PELVIS WITH IV CONTRAST CLINICAL INFORMATION: Recent left hip fracture. Redness and discharge from the incision. COMPARISON: None. TECHNIQUE: Helical scanning was performed with submillimeter collimation through the pelvis with 95 mL of Optiray 320 intravenous contrast. Sagittal and coronal multiplanar 2-D reconstructions were obtained. DLP: 800.72 mGy-cm FINDINGS: Status post left hip replacement. This causes streak artifact. In the subcutaneous tissue at the left side of the hip there is a large fluid collection. This measures about 27 cm of length and about 11 cm transverse by 6 cm AP. This has density measurement of 11 Hounsfield units, just above simple fluid. There is now air in this collection. Differential diagnosis would be a postoperative fluid collection/seroma and less likely abscess as there is no air collection. This could be aspirated percutaneously. There is no intrapelvic inflammation or fluid collections. Fat planes are normal. There is ventral wall hernia containing fat only at the lower umbilicus. Vascular stent in the distal aorta extending into the iliac vessels. There are a few diverticula of the left colon sigmoid but no diverticulitis. No acute change of the visualized bowel. Bladder unremarkable. There is degenerative disc disease of lower lumbar spine with disc height narrowing and facet joint arthrosis. Degenerative joint disease of right hip with joint space narrowing and spurring of acetabula. IMPRESSION: Status post left hip replacement. Large subcutaneous fluid collection in the soft tissues lateral to the left hip. This could be aspirated percutaneously. DICTATED BY: ISIS MONTANO MD DATE/TIME DICTATED:05/09/171752 MECHATRONICS ENGINEER:MAGGY DATE/TIME TRANSCRIBED:05/09/171752 Assessment/Plan Assessment/Plan Ms. Moreno is an 81-year-old female resident of [facility] home, status post open reduction internal fixation of left intertrochanteric hip fracture on 03/30, presents with fever and lethargy and left hip wound drainage. There is a mild leukocytosis present and although she was sent in for a fever of 101.9 she is afebrile now. Her vital signs are stable and not indicating fulminant sepsis at this time. She also has an underlying urinary analysis suggestive of urinary tract infection. This appears to be a surgical site infection based on CAT scan results of the left thigh revealing fluid collection at the site of surgery. Dr. Diallo is aware of this and suggest that antibiotics be held at this time and INR should aspirate this left hip fluid collection in a.m. After that antibiotics should be started and definitive treatment, possible surgical washout, of the left hip will be discussed in a.m. by the orthopedic team and the medical team and the patient. This was explained to the patient and the family member at the bedside in the emergency room and they were both in agreement. Dr. Diallo will evaluate the patient in the morning Consult Acknowledgment - Thank you for your consult request.
--- NOTE | 2017-05-09 20:55 | History & Physical ---
ZULEIKA DE JESUS,[facility] 05/09/172053: General Information and [facility] MD Statement: I have seen and personally examined RUBÉN MORENO and documented this H&P. The patient is a 81 year old F who presented with a patient stated chief complaint of [fever, left surgical wound induration]. Source of Information: patient, family Exam Limitations: no limitations History of Present Illness: Ms. Moreno is 81 year old female with chief complaint of fever 100.7 and left surgical wound induration. Patient has past medical history significant for atrial fibrillation on paradaxa, sinus sick syndrome status post pacemaker, hypothyroidism, COPD not on home oxygen, pulmonary hypertension, recent left hip arthroplasty for intertrochanteric and subtrochanteric femur fracture in March 2017 for which she was discharged to [facility]. History was obtained from the patient, her daughter Zari and the nurse at [facility]. Patient reported that for the last week she has been feeling weak and fatigued and was struggling with the physical therapy, developed some low-grade fevers, reported chills, night sweats, headache, chronic cough, left hip pain radiating to left groin and and lower back. According to the nurse chest x-ray and lab works were done and all negative, patient was started on urology protocol which means close monitoring for any signs of UTI or infection. 2 days prior to admission patient started to complain of dysuria, urinary incontinence. Patient denied any weakness, numbness or tingling sensation in lower extremity or upper extremity. The nurse mentioned that after discharge the left surgical wound was draining large amount of serosergenious drainage that needs change every 4-6 hours, 2 weeks after the surgery the drainage subsided and clips were removed. One week ago around /Sunday surgical incision noticed to be erythematous, warm to touch, scant amount of serous drainage was noticed from the distal end of the wound but no blood. No history of vital signs abnormality except for low-grade fever. History of fall in the [facility], no history of seizure or change in mentation. No history of chest pain, palpitation, shortness of breath, abdominal pain, nausea or vomiting. Patient is toe-touch weightbearing on left leg and ambulate with walker with assistance of 1. Last time patient received paradaxa was 05/09 at 9 AM. Allergies/Medications Allergies: Coded Allergies: coconut oil (ITCHING ALL OVER 07/31/16) codeine ("MY BP GOES WAY DOWN" 07/31/16) Home Med list Acetaminophen (Acephen) 650 MG SUPP.RECT 1 SUPP MN Q6H PRN PAIN/TEMP>101 ( Reported) Acetaminophen (Tylenol) 325 MG TABLET 2 TAB PO Q6H PRN PAIN/TEMP>101 ( Reported) Bisacodyl (Dulcolax) 10 MG SUPP.RECT 1 SUP RC DAILY PRN CONSTIPATION ( Reported) Dabigatran Etexilate Mesylate (Pradaxa 150 MG) 150 MG CAPSULE 1 CAP PO BID BLOOD THINNER (Reported) Docusate Sodium 100 MG CAPSULE 1 CAP PO BID constipation Furosemide 40 MG TABLET 1 TAB PO DAILY CHF (Reported) Levothyroxine Sodium (Synthroid) 175 MCG TABLET 1 TAB PO DAILY AC THYROID ( Reported) Losartan Potassium (Cozaar) 25 MG TABLET 1 TAB PO DAILY BP (Reported) Magnesium Hydroxide (Milk Of Magnesia) 400 MG/5 ML ORAL.SUSP 30 ML PO Q3D PRN CONSTIPATION (Reported) Metoprolol Succinate 50 MG TAB.ER.24H 1 TAB PO DAILY BP (Reported) Multivitamin (Multi-Day Vitamins) 1 EACH TABLET 1 TAB PO DAILY SUPPLEMENT ( Reported) Na Phos,M-B/Na Phos,Di-Ba (Fleet Enema) 19 GRAM-7 GRAM/118 ML ENEMA 1 E RC DAILY PRN CONSTIPATION (Reported) Naloxone HCl (Narcan) 4 MG/ACTUATION SPRAY 4 MG JERRY AD PRN OPIOID INDUCED RESP. DEPRESSIO (Reported) Oxycodone HCl/Acetaminophen (Percocet 5-325 MG Tablet) 5 MG-325 MG TABLET 2 TAB PO Q4H PRN SEVERE PAIN (Reported) Oxycodone HCl/Acetaminophen (Percocet 5-325 MG Tablet) 5 MG-325 MG TABLET 1 TAB PO Q4P PRN PAIN SCALE 4-6 (MODERATE) not to exceed more than 3000 mg of acetaminophen daily Paroxetine HCl 40 MG TABLET 1 TAB PO DAILY DEPRESSION (Reported) Polyethylene Glycol 3350 (Miralax) 17 GRAM POWD.PACK 1 PAC PO DAILY constipation dissolve in water Pravastatin Sodium 10 MG TABLET 1 TAB PO DAILY CHOLESTEROL (Reported) Sennosides (Senna) 8.6 MG TABLET 2 TAB PO DAILY constipation Umeclidinium Brm/Vilanterol Tr (Anoro Ellipta 62.5-25 Mcg INH) 62.5 MCG-25 MCG/ ACTUATION BLST.W.DEV 1 PUFF INH DAILY RESPIRATORY (Reported) Vit A,C & E/Lutein/Minerals (Ocuvite With Lutein Tablet) 1 EACH TABLET 1 TAB PO DAILY SUPPLEMENT (Reported) Past History Travel History Traveled to [place] past 21 day No Medical History Neurological: NONE EENT: NONE Cardiovascular: AFIB, CHF, hypertension, hyperlipidemia, PACEMAKER CAROTID STENTS PER PT PACEMAKER pulmonary htn SICK SINUS Respiratory: COPD Gastrointestinal: NONE Hepatic: NONE Renal: NONE Musculoskeletal: NONE Psychiatric: NONE Endocrine: HYPOTHYROID Blood Disorders: NONE Cancer(s): breast cancer 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 SISTER MOTHER MOTHER Relation not specified for: FH: CHF (congestive heart failure) FH: hypertension FH: kidney disease Psychosocial History Services at Home: None Primary Language: Danish Functional Ability Ambulation: walker Review of Systems Review of Systems Constitutional: Reports: see HPI. Exam & Diagnostic Data Last 24 Hrs of Vital Signs/I&O Vital Signs Date Time Temp Pulse Resp B/P B/P Pulse O2 O2 Flow FiO2 Mean Ox Delivery Rate 05/09 2111 98.0 74 20 158/64 91 Room Air 05/09 1846 98.9 78 20 146/73 96 Room Air 05/09 1748 99.1 82 18 165/80 95 Room Air 05/09 1505 94 05/09 1458 99.3 74 20 161/77 94 Room Air Intake & Output 05/10 0800 05/10 0000 05/09 1600 Intake Total Output Total 75 200 Balance -75 -200 Output, Urine 75 200 Patient 106.594 kg 106.594 kg Weight Weight Reported by Patient Reported by Patient Measurement Method Physical Exam General Appearance Alert, Oriented X3, Cooperative, No Acute Distress Skin No Rashes, left surgical incision erythema, arm, indurated, tender with serious discharge Skin Temp/Moisture Exam: Warm/Dry HEENT Atraumatic, PERRLA, EOMI, Mucous Membr. moist/pink Neck Supple Lymphatic no cervical lymphadenopathy Cardiovascular Normal S1, Normal S2, No Murmurs, irrigular Lungs Clear to Auscultation, Normal Air Movement Abdomen Normal Bowel Sounds, Soft, No Tenderness, No Hepatospenomegaly, No Masses Neurological Normal Speech, Strength at 5/5 X4 Ext, Normal Tone, Sensation Intact, Cranial Nerves 3-12 NL, Reflexes 2+ Extremities No Clubbing, No Cyanosis, No Edema, Normal Pulses, No Tenderness/ Swelling Last 24 Hrs of Labs/Erik: Laboratory Tests 05/09/17 1807: Lactic Acid Cancelled 05/09/17 1530: Urine Color YEL, Urine Clarity HAZY H, Urine pH 6.5, Ur Specific [place] 1.010, Urine Protein TRACE H, Urine Ketones NEG, Urine Nitrite NEG, Urine Bilirubin NEG, Urine Urobilinogen 2.0 H, Ur Leukocyte Esterase MOD H, Ur Microscopic SEDIMENT EXAMINED, Urine RBC 10-15 H, Urine WBC 15-25 H, Ur Epithelial Cells OCCAS, Urine Bacteria PACKD H, Urine Mucus RARE, Urine Hemoglobin MOD H, Urine Glucose NEG 05/09/17 1525: Anion Gap 13, Estimated GFR > 60, BUN/Creatinine Ratio 11.7, Glucose 100 H, Lactic Acid 1.8, Calcium 9.2, Total Bilirubin 1.1, AST 27, ALT 24, Alkaline Phosphatase 222 H, Total Protein 7.1, Albumin 3.7, Globulin 3.4, Albumin/ Globulin Ratio 1.1, CBC w Diff NO MAN DIFF REQ, RBC 3.70 L, MCV 98.3, MCH 31.3 H, RDW 16.8 H, MPV 7.9, Gran % 78.1 H, Lymphocytes % 11.5 L, Monocytes % 8.8, Eosinophils % 1.3, Basophils % 0.3, Absolute Granulocytes 8.7 H, Absolute Lymphocytes 1.3, Absolute Monocytes 1.0 H, Absolute Eosinophils 0.1, Absolute Basophils 0, PUBS MCHC 31.8 L Microbiology 05/09 1740 BLOOD: Blood Culture - RECD 05/09 1530 URINE ROUT: Urine Culture - RECD 05/09 1525 BLOOD: Blood Culture - RECD Diagnostic Data CXR Results Chest x ray IMPRESSION: Cardiomegaly, no acute intrathoracic process is seen. Pelvis, hip and femur x ray IMPRESSION: Postoperative changes with an oblique fracture through proximal femoral shaft as noted. Comparison with any other postoperative exams is recommended. CT pelvis with IV contrast FINDINGS: Status post left hip replacement. This causes streak artifact. In the subcutaneous tissue at the left side of the hip there is a large fluid collection. This measures about 27 cm of length and about 11 cm transverse by 6 cm AP. This has density measurement of 11 Hounsfield units, just above simple fluid. There is now air in this collection. Differential diagnosis would be a postoperative fluid collection/seroma and less likely abscess as there is no air collection. This could be aspirated percutaneously. There is no intrapelvic inflammation or fluid collections. Fat planes are normal. There is ventral wall hernia containing fat only at the lower umbilicus. Vascular stent in the distal aorta extending into the iliac vessels. There are a few diverticula of the left colon sigmoid but no diverticulitis. No acute change of the visualized bowel. Bladder unremarkable. There is degenerative disc disease of lower lumbar spine with disc height narrowing and facet joint arthrosis. Degenerative joint disease of right hip with joint space narrowing and spurring of acetabula. IMPRESSION: Status post left hip replacement. Large subcutaneous fluid collection in the soft tissues lateral to the left hip. This could be aspirated percutaneously. Assessment/Plan Assessment: Ms. Moreno is 81 year old female past medical history significant for atrial fibrillation on paradaxa administrated 05/09 at 9 AM, sinus sick syndrome status post pacemaker, hypothyroidism, COPD not on home oxygen, pulmonary hypertension, recent left hip arthroplasty for intertrochanteric and subtrochanteric femur fracture in March 2017 for which she was discharged to [facility]. [facility] from [facility] for evaluation of developed a fever of 100.7 and left surgical wound with induration and scanty serous discharge. Patient has 1 week history of weakness, low-grade fever, wound induration and 2 days history of dysuria and urinary incontinence. Labs significant for mild leukocytosis 11.2 , macrocytic anemia 11.6/36.4, hyponatremia 3.3, elevated alkaline phosphatase 222, rest of liver function within normal, note that last alkaline phosphatase was measured on March 28 prior to discharge was within normal. It could be due to current inflammation and purulent tear/wear process, it would be helpful to obtain ESR or C-reactive protein. Pelvic CT with contrast revealed Large subcutaneous fluid collection in the soft tissues lateral to the left hip. Urine is positive for leukocyte esterase, white blood cell with urinary symptoms dysuria and urinary incontinence, last urine culture in March was negative and UA was done in [facility] was negative as well. Problem list #Left large subcutaneous fluid collection status post left femur ORIF #UTI #Atrial fibrillation #COPD Plan -Admit to general medical floor -We'll obtain orthopedic consultation, initial recommendation to hold off antibiotic for wound drainage and culture -Gentle IV hydration and keep nothing by mouth -Pain medication, patient reported history of allergic to codeine hypotension, patient received morphine in the ED without significant side effects -Avoid narcotics opioids, benzos -ID consultation in a.m. -Consider obtaining ESR/C-reactive protein -Monitor alkaline phosphatase -Consider obtaining INR -Consider obtaining folic acid and vitamin B12 -Posterior obtaining iron study -TRC -Vitals every shift -Acetaminophen for fever -Hold paradax for now -Fall precaution -Code full -DVT prophylaxis Alps As Ranked By This Provider Problem List: 1. Intertrochanteric fracture of left hip 2. Infected wound Core Measures/Miscellaneous Acute Coronary Syndrome ACS Diagnosis: No Cerebrovascular Accident CVA/TIA Diagnosis: No Congestive Heart Failure CHF Diagnosis: No VTE (View Protocol) VTE Risk Factors: Age > 40 No [facility] VTE prophylaxis d/t: No contraindications No VTE Pharm Prophylaxis d/t: Surgical contraindication VTE Diagnosis: No VTE Type: NONE VTE Confirmed by (Test): NONE Sepsis (View Protocol) Severe Sepsis Present: No Septic Shock Septic Shock Present: No Miscellaneous Documentation Attending Case Discussed With: TREASURE PATEL MD Primary Care Physician: KATERINA LEON MD Patient sees these Specialists [facility] Level of Patient Care: General Medicine ROBERT DYE MD 05/10/17 0027: Resident Review Statement Resident Statement: examined this patient, discussed with equine intern, agreed with equine intern Other Findings: 81-year-old lady with a past medical history of chronic atrial fibrillation ( anticoagulated with Pradaxa), left-sided breast cancer status post excision and radiation therapy, sick sinus syndrome, status post pacemaker implantation, hypothyroidism, COPD not on home oxygen, pulmonary hypertension with RV pressures greater than 50 on the last echo in 2015, who was [facility] in from [facility] with complaints of lethargy, poor appetite, fevers with MAXIMUM TEMPERATURE of 101.9 and left hip wound drainage for the past 1 week. She also complains of dysuria with chills, night sweats and headache. Patient fractured her left hip and had an ORIF on 03/30/17 and has been receiving PT at the [facility], however she has remained non-weightbearing on that leg. Exam and labs as above Assessment 1. Surgical site infection on the left hip s/p ORIF of left femoral fracture 2. UTI 3. Hypokalemia 4. Chronic afib on pradaxa 5. Hypothyroidism 6. COPD, Pulm HTN Plan Admit to GM Hold Pradaxa for now Orthopedic consult requested-Plan is for washout of the surgical site in AM and to hold antibiotics for now and check INR Keep NPO for surgery in AM ID consult IVF hydration TRC/Nebs Blood and Urine cultures Replete K+ as needed; keep >4 Repeat labs in am Continue her impt home medications Heart healthy diet Pain pathway ordered Bowel regimen DVT prophylaxis-Alps GANESH AMANDATREASURE ROBERTS 05/10/17 0601: Attending MD Review Statement Attending Statement Attending MD Statement: examined this patient, discuss w/resident/PA/LOCATION ANALYST, agreed w/resident/PA/LOCATION ANALYST, reviewed EMR data (avail), reviewed images, amended to note Attending Assessment/Plan: CC Fever, lethargy PMH: A. fib, sick sinus syndrome S/P pacemaker, hypothyroidism, COPD Patient was [facility] from [facility] for fever of 100.7, increasing lethargy, and drainage and redness from the surgical site. Patient underwent repair of left comminuted intertrochanteric subtrochanteric proximal femur fracture with medullary nail. Patient was progressively feeling pain, on and off fever, lethargy since last 1 week, she also had a urinary frequency and burning, upper respiratory congestion, change in voice, chronic cough and was investigated with hip x-ray, chest x-rays, UA which were unremarkable. Patient denies chest pain, nausea vomiting, diarrhea back pain, headache. She endorses suprapubic pain. Vitals: T max 99.3, pulse 74, RR 20, blood pressure 161/77, saturating well on room air. On exam: A O 3, cooperative, mild discomfort secondary to pain, neck supple, JVD normal, no lymphadenopathy, mucosa moist, no focal neurological deficit, no dependent edema, no obvious skin rashes or inflammation CVS: S1-S2, RRR. RS: Clear to auscultate bilateral bases. Abdomen: Soft, NT, ND, bowel sounds present. Left-sided wound surgical scar approximated, drainage from the upper side of the scar, indurated, tenderness or erythema towards upper side of the scar. Labs: Hemoglobin 11.6, hematocrit 36.4, WBC 11.2, neutrophils 78% no bands, sodium 135, potassium 3.3, chloride 91, bicarbonate 31, BUN 7, creatinine 0.6, anion gap 13, glucose 100, calcium 9.2, lactate 1.8, AST 27, ALT 24, alkaline phosphatase 222, UA positive for trace protein, leukocyte esterase, WBC 15 X-ray femur, extremely hip, x-ray pelvis: Postoperative changes with an oblique fracture through proximal femoral shaft as noted. Comparison with any other postoperative exams is recommended. CXR: Cardiomegaly, no acute intrathoracic process is seen. Pelvis CT with IV contrast: Status post left hip replacement. Large subcutaneous fluid collection in the soft tissues lateral to the left hip . This could be aspirated percutaneously. A and P 81-year-old female with past medical history significant for sick sinus S/P pacemaker, currently on Pradaxa, hypothyroidism and COPD, S/P repair of left comminuted intertrochanteric subtrochanteric proximal femur fracture with medullary nail, was [facility] from [facility] for fever of 100.7, patient has mild leukocytosis, surgical site appears indurated, erythematous with mild discharge. CT scan confirms the finding of fluid collection in soft tissue. Orthopedic was consulted from ER, suggested to hold off antibiotics, consult IR for drainage, obtain cultures followed by antibiotics. Patient's also found to have mild UTI probably cystitis, which would be treated after the drainage. + Surgical site wound infection + UTI + History of A. fib, sick sinus S/P pacemaker, hypothyroidism, COPD - Admit to general medicine - Obtain blood cultures, urine cultures - IR consult - Appreciate orthopedic consult - Mucinex 600 mg by mouth twice a day - TRC and nebulizations - Antibiotics after IR assisted drainage of soft tissue fluid collection and culture - Adequate pain control - Hold Pradaxa - Continue rest of home medications
[2017-05-09 21:11] VITALS: BP 158/64
--- NOTE | 2017-05-09 23:34 | RADIOLOGY REPORT ---
EXAMINATION: XR HIP, LEFT CLINICAL INFORMATION: Follow-up hip fracture. COMPARISON: Preoperative plain films 03/28/2017, intraoperative films 03/30/2017. CT scan performed earlier the same day. TECHNIQUE: Single view of the pelvis. Two views of the left hip. 2 views of the femur. FINDINGS: There is diffuse osteopenia. There is a long intramedullary shon with 2 interlocking screws distally and 2 compression nail proximally involving the left femur. There is an oblique fracture line which remains visualized without significant interval healing involving the proximal left femoral shaft with 1.8 cm of separation of fracture fragments on the lateral view anteriorly. No other fractures are identified. Please see the pelvis CT dictation for information regarding the large percutaneous fluid collection laterally. Biiliac metallic stents are identified. IMPRESSION: Postoperative changes with an oblique fracture through proximal femoral shaft as noted. Comparison with any other postoperative exams is recommended.
--- NOTE | 2017-05-10 00:31 | NUR ---
NURSING NOTE: LATE ENTRY. PT ARRIVED TO FLOOR AT 2024 ON 05/09/17 FROM ED BY STRETCHER. PT IS A&OX3 BUT CAN BE FORGETFUL @ TIMES. ON ROOM AIR NO DISTRESS NOTED BUT C/O DYSPNEA WHEN LAYING FLAT AND ON EXERTION. PT L HIP DSG C/D/I AND WAS CHANGED BY SURGICAL PA IN ED. SCANT DRAINAGE NOTED AND SITE MARKED. PT VOIDING ON BEDPAN AND CAN BE INCONTINENT @ TIMES. PT BASELINE IS INDEPENDENT W/ RW BUT AT THIS TIME PT IS ONLY TOE TOUCH TO L FT W/ RW. LAST BM ON 05/09/17 REPORTED BY PT. PTS SKIN INTACT BUT THERE IS REDNESS TO THE L HIP SITE AND BRUISING FROM PTS PREVIOUS FALL. PT DENIES ANY PAIN AT THIS TIME. FALL PRECAUTIONS IN PLACE. PT EDUCATED ABOUT FALL PRECAUTIONS AND HOW TO USE THE CALL LIGHT SYSTEM. INFO PACKET GIVEN. AWAIT FOR MD TO COME UP TO ASSESS AND TALK TO PT. NO FURTHER ORDERS AT THIS TIME. VSS. WILL CONTINUE TO MONITOR.
--- NOTE | 2017-05-10 05:29 | Admission Certification ---
Admission Certification Certification Statement - As attending physician, I certify that at the time of - admission, based on clinical presentation, severity of - symptoms, need for further diagnostic testing and - therapeutic interventions, and risk of adverse outcomes - without in-hospital treatment, in my clinical assessment, - this patient requires an acute hospital stay for a minimum - of two nights or longer. I have also considered psychsocial - factors such as support system, advanced age, financial - issues, cognitive issues, and failed out-patient treatments, - past re-admission history, safety of patient, and lack of - compliance as applicable. Specific rationale supporting this admission is: Surgical site wound infection
[2017-05-10 06:52] VITALS: BP 130/70
--- NOTE | 2017-05-10 07:10 | PN- Student ---
Subjective Subjective: Patient was seen this am in bed, reports feeling "extremely nervous" about the treatment of her hip. She states her left hip is painful but IV tylenol has been helping sometimes. She reports being a little short of breath and nauseous but denies chest pain, vomitting, headaches and dizziness. She is using the bed monroy to void with nursing help. Objective Objective: Vital Signs Result Date Time Pulse Ox 95 05/10 652 B/P 130/70 05/10 652 O2 Delivery Nasal Cannula 05/10 652 O2 Flow Rate 2.0L 05/10 652 Temp 97.6 05/10 652 Pulse 72 05/10 0652 Resp 20 05/10 06 Intake & Output 05/10 0000 05/09 1600 05/09 0800 Intake Total Output Total 75 200 Balance -75 -200 Output, Urine 75 200 Patient 235 lb 235 lb Weight Weight Reported by Patient Reported by Patient Measurement Method General: Awake, oriented but groggy Lungs: CTAB, no wheeze/rales/rhonchi Heart: S1 S2, RRR, no M,R,G Abdomen: soft, normoactive bowel sounds, non-tender Extremities: ALPS in place, gross motor/sensory function in tact, warm, no calf tenderness bilaterally Left Hip: dressing stained with purulent yellow fluid, erythema and inflammation noted along incision site, hot, exquisitely tender to light touch IV line in place and running Assessment/Plan Assessment: This is a 81 y/o female s/p left hip ORIF for femoral neck fracture on 03/30/2017 with left hip wound infection with subcutaneous fluid collection. PMH significant for afib, CHF, htn. Plan: Diet: NPO Pain: continue current pain management regimen with IV tylenol PRN DVT and GI ppx Consider percutaneous drainage and culture of abscess in IR Continue IV fluids Daily am labs
--- NOTE | 2017-05-10 07:32 | PN- Housestaff ---
JACKELIN OGLESBY 05/10/17 0732: Subjective Follow-up For: Surgical site wound infection Status post drainage of left hip Urinary tract infection History of atrial fibrillation, Pradaxa on hold now Complaints: pain scale (0-10) Subjective: Patient was seen and examined this morning. She is alert awake and oriented to time place and person. No acute events noticed overnight. She continues to have 6 out of 10 pain left hip. Associated with serous drainage. Denies any fever, chills. Denies any chest pain, palpitations. However continues to have cough with sputum production. Vitals normal, afebrile, heart rate 70, respiratory rate 20, blood pressure 130/ 80, saturating at 97 on 2l. Review of Systems Constitutional: Reports: see HPI. Objective Last 24 Hrs of Vital Signs/I&O Vital Signs Date Time Temp Pulse Resp B/P B/P Pulse O2 O2 Flow FiO2 Mean Ox Delivery Rate 05/10 1116 70 138/72 05/10 1116 70 138/72 05/10 1101 Nasal 2.0L Cannula 05/10 0652 97.6 72 20 130/70 95 Nasal 2.0L Cannula 05/10 0000 95 Nasal 2.0L Cannula 05/09 2111 98.0 74 20 158/64 91 Room Air 05/09 1846 98.9 78 20 146/73 96 Room Air 05/09 1748 99.1 82 18 165/80 95 Room Air Intake & Output 05/10 1600 05/10 0800 05/10 0000 Intake Total 500 Output Total 1000 75 Balance -500 -75 Intake, IV 300 Intake, Oral 200 Number 2 Bowel Movements Output, Urine 1000 75 Patient 106.594 kg Weight Weight Reported by Patient Measurement Method Physical Exam General Appearance: Alert, Oriented X3, Cooperative, No Acute Distress Skin: No Rashes, No Breakdown HEENT: Atraumatic, PERRLA, EOMI, Mucous Membr. moist/pink Neck: Supple, No JVD, No thryomegaly Lymphatic: Cervical nl Cardiovascular: Normal S1, Normal S2 Lungs: Normal Air Movement Abdomen: Normal Bowel Sounds, Soft, No Tenderness Extremities: No Clubbing, No Cyanosis, No Edema Vascular: Pulses Symmetrical Current Medications: Current Medications Sig/Tena Start time Last Medication Dose Route Stop Time Status Admin Acetaminophen 650 MG Q6P PRN 05/10 0100 AC PO Acetaminophen 1,000 MG Q6P PRN 05/10 0100 AC 05/10 IV 0130 Albuterol Sulfate 3 ML ONCE ONE 05/10 1215 DC 05/10 INH 05/10 1216 1212 Ceftazidime 2,000 MG IQ8 05/10 1600 AC IV Furosemide 40 MG DAILY 05/10 1000 AC 05/10 PO 1116 Guaifenesin 600 MG Q12 05/10 1143 AC PO Levothyroxine Sodium 0.175 MG DAILY AC 05/10 0700 AC 05/10 PO 0644 Lidocaine 1 ML .STK-MED ONE 05/10 1438 DC ID 05/10 1439 Losartan Potassium 25 MG DAILY 05/10 1000 AC 05/10 PO 1116 Metoprolol Succinate 50 MG DAILY 05/10 1000 AC 05/10 PO 1116 Morphine Sulfate 1 MG ONCE ONE 05/09 2015 DC 05/09 IV 05/09 Morphine Sulfate 0 .STK-MED ONE 05/09 2014 DC .ROUTE Paroxetine HCl 40 MG DAILY 05/10 1000 AC 05/10 PO 1116 Patient Medication 1 ED .STK-MED ONE 05/10 1411 DC Teaching ED 05/10 1412 Polyethylene Glycol 17 GM AT BEDTIME 05/10 2200 AC PO Potassium Chloride 40 MEQ ONCE ONE 05/10 0215 DC 05/10 PO 05/10 0216 0230 Pravastatin Sodium 10 MG DAILY 05/10 1000 AC 05/10 PO 1115 Ramelteon 8 MG AT BEDTIME NEED.. 05/10 0100 AC 05/10 PO 0130 Senna/Docusate Sodium 2 TAB AT BEDTIME 05/10 2200 AC PO Sodium Chloride 1,000 ML .Q20H 05/10 0100 AC 05/10 IV 05/10 Vancomycin HCl 1,500 MG Q24H 05/10 1600 AC Sodium Chloride 250 ML IV Last 24 Hrs of Lab/Erik Results Last 24 Hrs of Labs/Mics: Laboratory Tests 05/10/17 0700: Anion Gap 10, Estimated GFR > 60, BUN/Creatinine Ratio 14.0, PT 15.4 H, INR 1.47 H, CBC w Diff NO MAN DIFF REQ, RBC 3.29 L, MCV 96.7, MCH 31.4 H, RDW 16.4 H, MPV 8.3, Gran % 77.6 H, Lymphocytes % 10.7 L, Monocytes % 9.6 H, Eosinophils % 1.8, Basophils % 0.3, Absolute Granulocytes 8.2 H, Absolute Lymphocytes 1.1 L, Absolute Monocytes 1.0 H, Absolute Eosinophils 0.2, Absolute Basophils 0, PUBS MCHC 32.5 L 05/09/17 1807: Lactic Acid Cancelled 05/09/17 1530: Urine Color YEL, Urine Clarity HAZY H, Urine pH 6.5, Ur Specific [place] 1.010, Urine Protein TRACE H, Urine Ketones NEG, Urine Nitrite NEG, Urine Bilirubin NEG, Urine Urobilinogen 2.0 H, Ur Leukocyte Esterase MOD H, Ur Microscopic SEDIMENT EXAMINED, Urine RBC 10-15 H, Urine WBC 15-25 H, Ur Epithelial Cells OCCAS, Urine Bacteria PACKD H, Urine Mucus RARE, Urine Hemoglobin MOD H, Urine Glucose NEG Microbiology 05/10 1523 LOWER RESP: Respiratory Culture - ORD 05/10 1523 LOWER RESP: Gram Stain - ORD 05/10 1410 BODY FLUID: Body Fluid Culture - RECD 05/10 1410 BODY FLUID: Gram Stain - RECD 05/10 1145 LOWER RESP: Respiratory Culture - CAN Cancelled: NUMBER OF SQUAMOUS CELLS INDICATES POOR QUALITY SPECIMEN 05/10 1145 LOWER RESP: Gram Stain - CAN Cancelled: NUMBER OF SQUAMOUS CELLS INDICATES POOR QUALITY SPECIMEN 05/10 1011 BODY FLUID: Body Fluid Culture - CAN Cancelled: DUPL;ICATE ORDER 05/10 1011 BODY FLUID: Gram Stain - CAN Cancelled: DUPL;ICATE ORDER 05/09 1740 BLOOD: Blood Culture - RES 05/09 1530 URINE ROUT: Urine Culture - RES GRAM NEGATIVE RODS Assessment/Plan Assessment: 80-year-old female with past medical history significant for stage II diastolic congestive heart failure on lasix, chronic atrial fibrillation who is on metoprolol and pradaxa, bradycardia, SSS status post pacemaker placed in 2013, hypothyroidism, depression, COPD not on home oxygen, hypertension, hyperlipidemia, pulmonary hypertension with RVP Greater than 50, last echocardiogram in 2016 was brought to the [facility] emergency room with chief complaint of fever, lethargy and drainage from left hip surgical site. Vitals on admission-temperature max 99.3, heart rate 70, respiratory 20, blood pressure 160 1077, saturating at 94 on room air. Pertinent labs on admission Hemoglobin 11.6, hematocrit 36, WBC 11.2 Sodium 135, potassium 3.3, BUN 7, creatinine 0.6, glucose 100 lactate 1.3 Alkaline phosphatase 222 Urine analysis positive for esterases, WBC. Chest [id number] no acute intrathoracic processes X-ray pelvis, hip, femoral showed Postoperative changes with an oblique fracture through proximal femoral shaft as noted. pelvic CT- IMPRESSION: Status post left hip replacement. Large subcutaneous fluid collection in the soft tissues lateral to the left hip. This could be aspirated percutaneously. 1. Left hip-surgical site infection she has Comminuted left proximal femoral intertrochanteric-subtrochanteric fracture: s/p repair left comminuted intertrochanteric-subtrochanteric proximal femur fracture with long cephalo-medullary nail on 03/30/2017. Now presented to emergency department from assisted with fever 100.7 and mild leukocytosis. Surgical site appears indurated with serous discharge. CAT scan confirms finding of fluid collection soft tissue. * Admitted to general medicine floor for further management. * Monitor vitals closely every shift * Monitor for fever, leukocytosis, worsening pain, surgical site drainage * IR assisted drainage of soft tissue fluid collection 05/10/2017- 180 ml. * ID on board * Started ceftaz and vancomycin for surgical site infection to cover for MRSA and gram-negative rods-day 1 * Follow-up OR cultures * Follow-up blood culture and urine cultures * Orthopedics on board, may go to surgical procedure tomorrow. * Pradaxa on hold. Urinary tract infection Urine analysis positive for esterases, WBC, bacteria Probably cystitis Patient is on ceftaz and Vanco now Will follow-up urine cultures and change antibiotics according. 2. Congestive heart failure * Stage II diastolic chronic congestive heart failure * Takes Lasix 40 mg daily at home * Chest x-ray -cardiomegaly, No pulmonary edema * Resume her home dose of Lasix 40 mg from tomorrow. * Strict I's and O's * Daily weights. 3. Chronic atrial fibrillation * hold Pradaxa 150 mg for anticipated orthopedic surgery * Continue metoprolol 50 mg. 4. Hypertension * Continue losartan 25 mg 5. Hypothyroidism * Continue Synthyroid 0.17 mg 6. Depression * Continue paroxetine 40 mg daily 7. Hyperlipidemia * Continue statins Full code reg diet DVT prophylaxis- hold Pradaxa pain pathway Problem List: 1. Infected wound Pain Ratin Pain Location: left hip Pain Goal: Remain pain free Pain Plan: tylinol morphine Tomorrow's Labs & Rationales: cbc in the setting of infection bep WINNIE PACHECO MD 05/10/17 2212: Attending MD Review Statement Attending Statement Attending MD Statement: examined this patient, discuss w/resident/PA/[employer], agreed w/resident/PA/[employer], reviewed EMR data (avail), discussed with nursing, discussed with case mgmt, reviewed images, amended to note Attending Assessment/Plan: The patient was seen and discussed with house staff. S/P drainage of infection by IR. Appreciate ID input. Agree with plan of care as outlined.
[2017-05-10 08:15] LABS: PT 15.4 SEC (9.4-12.5)
--- NOTE | 2017-05-10 08:20 | PN- Orthopedic ---
Subjective Subjective: pain swelling left hip Objective Vital Signs and I&Os Vital Signs Date Time Temp Pulse Resp B/P B/P Pulse O2 O2 Flow FiO2 Mean Ox Delivery Rate 05/10 0652 97.6 72 20 130/70 95 Nasal 2.0L Cannula 05/09 2111 98.0 74 20 158/64 91 Room Air 05/09 1846 98.9 78 20 146/73 96 Room Air 05/09 1748 99.1 82 18 165/80 95 Room Air 05/09 1505 94 05/09 1458 99.3 74 20 161/77 94 Room Air Intake & Output 05/10 1600 05/10 0800 05/10 0000 05/09 1600 05/09 0800 05/09 0000 Intake Total Output Total 1000 75 200 Balance -1000 -75 -200 Number 2 Bowel Movements Output, Urine 1000 75 200 Patient 235 lb 235 lb Weight Weight Reported by Patient Reported by Patient Measurement Method Physical Exam: swelling, erythema proximal to incision no definite rotatory deformity Results Last 48 Hours of Labs: Laboratory Tests 05/10 05/09 05/09 0700 1807 1530 Chemistry Sodium Pending Potassium Pending Chloride Pending Carbon Dioxide Pending Anion Gap Pending BUN Pending Creatinine Pending BUN/Creatinine Ratio Pending Lactic Acid Cancelled Coagulation PT Pending INR Pending Hematology CBC w Diff Pending WBC Pending RBC Pending Hgb Pending Hct Pending MCV Pending MCH Pending RDW Pending Plt Count Pending MPV Pending PUBS MCHC Pending Urines Urine Color (YEL,AMB,STR) YEL Urine Clarity (CLEAR) HAZY H Urine pH (5.0 - 8.0) 6.5 Ur Specific [place] (1.001 - 1.035) 1.010 Urine Protein (NEG,<30 MG/DL) TRACE H Urine Ketones (NEG) NEG Urine Nitrite (NEG) NEG Urine Bilirubin (NEG) NEG Urine Urobilinogen (0.1 - 1.0 EU/dl) 2.0 H Ur Leukocyte Esterase (NEG) MOD H Ur Microscopic SEDIMENT EXAMINED Urine RBC (0 - 5 /HPF) 10-15 H Urine WBC (0 - 2 /HPF) 15-25 H Ur Epithelial Cells (NONE,FEW) OCCAS Urine Bacteria (NEG/NONE) PACKD H Urine Mucus (FEW,NONE) RARE Urine Hemoglobin (NEG) MOD H Urine Glucose (N MG/DL) NEG 05/09 1525 Chemistry Sodium (137 - 145 mmol/L) 135 L Potassium (3.5 - 5.1 mmol/L) 3.3 L Chloride (98 - 107 mmol/L) 91 L Carbon Dioxide (22 - 30 mmol/L) 31 H Anion Gap (5 - 16) 13 BUN (7 - 17 mg/dL) 7 Creatinine (0.5 - 1.0 mg/dL) 0.6 Estimated GFR (>60 ml/min) > 60 BUN/Creatinine Ratio (7 - 25 %) 11.7 Glucose (65 - 99 mg/dL) 100 H Lactic Acid (0.7 - 2.1 mmol/L) 1.8 Calcium (8.4 - 10.2 mg/dL) 9.2 Total Bilirubin (0.2 - 1.3 mg/dL) 1.1 AST (14 - 36 U/L) 27 ALT (9 - 52 U/L) 24 Alkaline Phosphatase (<127 U/L) 222 H Total Protein (6.3 - 8.2 g/dL) 7.1 Albumin (3.5 - 5.0 g/dL) 3.7 Globulin (1.9 - 4.2 gm/dL) 3.4 Albumin/Globulin Ratio (1.1 - 2.2 %) 1.1 Hematology CBC w Diff NO MAN DIFF REQ WBC (4.8 - 10.8 /CUMM) 11.2 H RBC (4.20 - 5.40 /CUMM) 3.70 L Hgb (12.0 - 16.0 G/DL) 11.6 L Hct (37 - 47 %) 36.4 L MCV (81.0 - 99.0 FL) 98.3 MCH (27.0 - 31.0 PG) 31.3 H RDW (11.5 - 14.5 %) 16.8 H Plt Count (130 - 400 /CUMM) 381 MPV (7.4 - 10.4 FL) 7.9 Gran % (42.2 - 75.2 %) 78.1 H Lymphocytes % (20.5 - 51.1 %) 11.5 L Monocytes % (1.7 - 9.3 %) 8.8 Eosinophils % (0 - 5 %) 1.3 Basophils % (0.0 - 2.0 %) 0.3 Absolute Granulocytes (1.4 - 6.5 /CUMM) 8.7 H Absolute Lymphocytes (1.2 - 3.4 /CUMM) 1.3 Absolute Monocytes (0.10 - 0.60 /CUMM) 1.0 H Absolute Eosinophils (0.0 - 0.7 /CUMM) 0.1 Absolute Basophils (0.0 - 0.2 /CUMM) 0 PUBS MCHC (33.0 - 37.0 G/DL) 31.8 L Recent Imaging Studies: fairly large fluid collection around left hip on CT previous placed long IM shon for fixation Assessment/Plan Assessment/Plan large fluid collection around recent surgical wound-likely originally hematoma but likely infected aspiration in IR today for specimen-culture and sensitivity. Will likely need I and D depending on cultures. Also patient was on pradaxa which is being held for the possibility of surgery would make NPO after MN for anticipated procedure Sunday or Sat Will discuss with patients ortho attending
[2017-05-10 08:26] LABS: ABSOLUTE BASOPHIL COUNT 0 /CUMM (0.0-0.2); ABSOLUTE EOSINOPHIL COUNT 0.2 /CUMM (0.0-0.7); ABSOLUTE GRANULOCYTE CT 8.2 /CUMM (1.4-6.5); ABSOLUTE LYMPH COUNT 1.1 /CUMM (1.2-3.4); BASOPHIL % 0.3 % (0.0-2.0); EOSINOPHIL % 1.8 % (0-5); GRANULOCYTE % 77.6 % (42.2-75.2); HEMATOCRIT 31.8 % (37-47); MEAN CORPUSCULAR HGB 31.4 PG (27.0-31.0); MEAN CORPUSCULAR HGB CONC 32.5 G/DL (33.0-37.0); MEAN CORPUSCULAR VOLUME 96.7 FL (81.0-99.0); MEAN PLATELET VOLUME 8.3 FL (7.4-10.4); PLATELET COUNT 315 /CUMM (130-400); RBC DISTRIBUTION WIDTH 16.4 % (11.5-14.5); RED BLOOD CELL CT 3.29 /CUMM (4.20-5.40); WHITE BLOOD CELL COUNT 10.5 /CUMM (4.8-10.8)
--- NOTE | 2017-05-10 11:22 | Cons- Infect Disease ---
General Information and HPI Consulting Request Date of Consult: 05/10/17 Requested By: WINNIE PACHECO MD Reason for Consult: Surgical site infection left hip Source of Information: patient, old records Exam Limitations: clinical condition History of Present Illness: This is an 81-year-old woman with a history of atrial fibrillation, maintained on Pradaxa, sick sinus syndrome, status post pacemaker, COPD, maintained on oxygen, pulmonary hypertension, hypothyroidism, status post ORIF of a comminuted left proximal femoral intertrochanteric subtrochanteric fracture 6 weeks prior to admission after a fall, with Cefazolin prophylaxis, discharged to a short- term rehabilitation 3 days postop, with serosanguineous drainage reported for the initial 2 weeks, admitted on May 09 because of a fever to 100.7 and a one- week history of purulent drainage from her left hip incision with erythema and intermittent pain as well as dysuria, urinary frequency and lethargy. On admission she was afebrile. Laboratory data revealed a white blood cell count of 10,000, BUN/creatinine 7 and 0.6, alk phosphatase 222. Urinalysis 10-15 RBC/ 15-25 WBCs. Chest x-ray was negative for any acute process. X-ray of the pelvis and left femur revealed postop changes with an oblique fracture through the proximal femoral shaft. CT of the pelvis revealed a large subcutaneous fluid collection in the soft tissues lateral to the left hip, measuring 11 x 27 cm, with air in the collection. She was followed off antibiotics and has remained afebrile overnight. At present she reports listlessness but does not report any pain in the hip. Allergies/Medications Allergies: Coded Allergies: coconut oil (ITCHING ALL OVER 07/31/16) codeine ("MY BP GOES WAY DOWN" 07/31/16) Home Med List: Acetaminophen (Acephen) 650 MG SUPP.RECT 1 SUPP MO Q6H PRN PAIN/TEMP>101 ( Reported) Acetaminophen (Tylenol) 325 MG TABLET 2 TAB PO Q6H PRN PAIN/TEMP>101 ( Reported) Bisacodyl (Dulcolax) 10 MG SUPP.RECT 1 SUP RC DAILY PRN CONSTIPATION ( Reported) Dabigatran Etexilate Mesylate (Pradaxa 150 MG) 150 MG CAPSULE 1 CAP PO BID BLOOD THINNER (Reported) Docusate Sodium 100 MG CAPSULE 1 CAP PO BID constipation Furosemide 40 MG TABLET 1 TAB PO DAILY CHF (Reported) Levothyroxine Sodium (Synthroid) 175 MCG TABLET 1 TAB PO DAILY AC THYROID ( Reported) Losartan Potassium (Cozaar) 25 MG TABLET 1 TAB PO DAILY BP (Reported) Magnesium Hydroxide (Milk Of Magnesia) 400 MG/5 ML ORAL.SUSP 30 ML PO Q3D PRN CONSTIPATION (Reported) Metoprolol Succinate 50 MG TAB.ER.24H 1 TAB PO DAILY BP (Reported) Multivitamin (Multi-Day Vitamins) 1 EACH TABLET 1 TAB PO DAILY SUPPLEMENT ( Reported) Na Phos,M-B/Na Phos,Di-Ba (Fleet Enema) 19 GRAM-7 GRAM/118 ML ENEMA 1 E RC DAILY PRN CONSTIPATION (Reported) Naloxone HCl (Narcan) 4 MG/ACTUATION SPRAY 4 MG JERRY AD PRN OPIOID INDUCED RESP. DEPRESSIO (Reported) Oxycodone HCl/Acetaminophen (Percocet 5-325 MG Tablet) 5 MG-325 MG TABLET 2 TAB PO Q4H PRN SEVERE PAIN (Reported) Oxycodone HCl/Acetaminophen (Percocet 5-325 MG Tablet) 5 MG-325 MG TABLET 1 TAB PO Q4P PRN PAIN SCALE 4-6 (MODERATE) not to exceed more than 3000 mg of acetaminophen daily Paroxetine HCl 40 MG TABLET 1 TAB PO DAILY DEPRESSION (Reported) Polyethylene Glycol 3350 (Miralax) 17 GRAM POWD.PACK 1 PAC PO DAILY constipation dissolve in water Pravastatin Sodium 10 MG TABLET 1 TAB PO DAILY CHOLESTEROL (Reported) Sennosides (Senna) 8.6 MG TABLET 2 TAB PO DAILY constipation Umeclidinium Brm/Vilanterol Tr (Anoro Ellipta 62.5-25 Mcg INH) 62.5 MCG-25 MCG/ ACTUATION BLST.W.DEV 1 PUFF INH DAILY RESPIRATORY (Reported) Vit A,C & E/Lutein/Minerals (Ocuvite With Lutein Tablet) 1 EACH TABLET 1 TAB PO DAILY SUPPLEMENT (Reported) Past History Travel History Traveled to [place] past 21 day No Medical History Blood Transfusion Hx: Yes Neurological: NONE EENT: NONE Cardiovascular: AFIB, CHF, hypertension, hyperlipidemia, SICK SINUS Respiratory: COPD, pulmonary hypertension Gastrointestinal: NONE Hepatic: NONE Renal: NONE Musculoskeletal: osteoarthritis Psychiatric: depression Endocrine: HYPOTHYROID Blood Disorders: NONE Cancer(s): breast cancer [employer]PER[employer]END[employer]/Reproductive: NONE History of MRSA: No History of VRE: No History of CDIFF: No Isolation History: Standard Surgical History Surgical History: hysterectomy, lumpectomy (left breast 1997), STAUS POST THYROIDECTOMY s/p left ankle orif (Right CEA/ Appendectomy and ch), status post right carotid endarterectomy, status post endovascular repair of an infrarenal AAA 2008, status post pacemaker Family History Relations & Conditions If Any: FATHER, . SISTER MOTHER MOTHER Relation not specified for: FH: CHF (congestive heart failure) FH: hypertension FH: kidney disease Psychosocial History Services at Home: None Primary Language: Mauritian Smoking Status: Former Smoker Functional Ability Ambulation: walker Review of Systems Review of Systems Cardiovascular: Denies: chest pain. Respiratory: Denies: cough, short of breath. GI: Denies: abdominal pain, nausea, vomiting. Genitourinary: Reports: dysuria. Musculoskeletal: Reports: back pain. All Other Systems: Reviewed and Negative Exam & Diagnostic Data Last 24 Hrs of Vital Signs/I&O Vital Signs Date Time Temp Pulse Resp B/P B/P Pulse O2 O2 Flow FiO2 Mean Ox Delivery Rate 05/10 1101 Nasal 2.0L Cannula 05/10 0652 97.6 72 20 130/70 95 Nasal 2.0L Cannula 05/09 2111 98.0 74 20 158/64 91 Room Air 05/09 1846 98.9 78 20 146/73 96 Room Air 05/09 1748 99.1 82 18 165/80 95 Room Air 05/09 1505 94 05/09 1458 99.3 74 20 161/77 94 Room Air Intake & Output 05/10 1600 05/10 0800 05/10 0000 Intake Total Output Total 1000 75 Balance -1000 -75 Number 2 Bowel Movements Output, Urine 1000 75 Patient 235 lb Weight Weight Reported by Patient Measurement Method Physical Exam Other Physical Findings: She appears fatigued but is awake and alert in no acute distress. She is afebrile. Skin reveals no rash. HEENT exam is negative. Neck is supple with no adenopathy. Lungs are clear. Heart regular rhythm with no murmur. Abdomen is soft, nontender with positive bowel sounds. Back left CVA tenderness. Extremities left hip incision with purulent drainage, with minimal erythema, tender to palpation; cool feet with decreased perfusion. Neuro is without focality. Last 24 Hours of Lab Results: Laboratory Tests 05/10 05/09 0700 1807 Chemistry Sodium (137 - 145 mmol/L) 134 L Potassium (3.5 - 5.1 mmol/L) 3.9 Chloride (98 - 107 mmol/L) 97 L Carbon Dioxide (22 - 30 mmol/L) 27 Anion Gap (5 - 16) 10 BUN (7 - 17 mg/dL) 7 Creatinine (0.5 - 1.0 mg/dL) 0.5 Estimated GFR (>60 ml/min) > 60 BUN/Creatinine Ratio (7 - 25 %) 14.0 Lactic Acid Cancelled Coagulation PT (9.4 - 12.5 SEC) 15.4 H INR (0.90 - 1.19) 1.47 H Hematology CBC w Diff NO MAN DIFF REQ WBC (4.8 - 10.8 /CUMM) 10.5 RBC (4.20 - 5.40 /CUMM) 3.29 L Hgb (12.0 - 16.0 G/DL) 10.3 L Hct (37 - 47 %) 31.8 L MCV (81.0 - 99.0 FL) 96.7 MCH (27.0 - 31.0 PG) 31.4 H RDW (11.5 - 14.5 %) 16.4 H Plt Count (130 - 400 /CUMM) 315 MPV (7.4 - 10.4 FL) 8.3 Gran % (42.2 - 75.2 %) 77.6 H Lymphocytes % (20.5 - 51.1 %) 10.7 L Monocytes % (1.7 - 9.3 %) 9.6 H Eosinophils % (0 - 5 %) 1.8 Basophils % (0.0 - 2.0 %) 0.3 Absolute Granulocytes (1.4 - 6.5 /CUMM) 8.2 H Absolute Lymphocytes (1.2 - 3.4 /CUMM) 1.1 L Absolute Monocytes (0.10 - 0.60 /CUMM) 1.0 H Absolute Eosinophils (0.0 - 0.7 /CUMM) 0.2 Absolute Basophils (0.0 - 0.2 /CUMM) 0 PUBS MCHC (33.0 - 37.0 G/DL) 32.5 L 05/09 05/09 1530 1525 Chemistry Sodium (137 - 145 mmol/L) 135 L Potassium (3.5 - 5.1 mmol/L) 3.3 L Chloride (98 - 107 mmol/L) 91 L Carbon Dioxide (22 - 30 mmol/L) 31 H Anion Gap (5 - 16) 13 BUN (7 - 17 mg/dL) 7 Creatinine (0.5 - 1.0 mg/dL) 0.6 Estimated GFR (>60 ml/min) > 60 BUN/Creatinine Ratio (7 - 25 %) 11.7 Glucose (65 - 99 mg/dL) 100 H Lactic Acid (0.7 - 2.1 mmol/L) 1.8 Calcium (8.4 - 10.2 mg/dL) 9.2 Total Bilirubin (0.2 - 1.3 mg/dL) 1.1 AST (14 - 36 U/L) 27 ALT (9 - 52 U/L) 24 Alkaline Phosphatase (<127 U/L) 222 H Total Protein (6.3 - 8.2 g/dL) 7.1 Albumin (3.5 - 5.0 g/dL) 3.7 Globulin (1.9 - 4.2 gm/dL) 3.4 Albumin/Globulin Ratio (1.1 - 2.2 %) 1.1 Hematology CBC w Diff NO MAN DIFF REQ WBC (4.8 - 10.8 /CUMM) 11.2 H RBC (4.20 - 5.40 /CUMM) 3.70 L Hgb (12.0 - 16.0 G/DL) 11.6 L Hct (37 - 47 %) 36.4 L MCV (81.0 - 99.0 FL) 98.3 MCH (27.0 - 31.0 PG) 31.3 H RDW (11.5 - 14.5 %) 16.8 H Plt Count (130 - 400 /CUMM) 381 MPV (7.4 - 10.4 FL) 7.9 Gran % (42.2 - 75.2 %) 78.1 H Lymphocytes % (20.5 - 51.1 %) 11.5 L Monocytes % (1.7 - 9.3 %) 8.8 Eosinophils % (0 - 5 %) 1.3 Basophils % (0.0 - 2.0 %) 0.3 Absolute Granulocytes (1.4 - 6.5 /CUMM) 8.7 H Absolute Lymphocytes (1.2 - 3.4 /CUMM) 1.3 Absolute Monocytes (0.10 - 0.60 /CUMM) 1.0 H Absolute Eosinophils (0.0 - 0.7 /CUMM) 0.1 Absolute Basophils (0.0 - 0.2 /CUMM) 0 PUBS MCHC (33.0 - 37.0 G/DL) 31.8 L Urines Urine Color (YEL,AMB,STR) YEL Urine Clarity (CLEAR) HAZY H Urine pH (5.0 - 8.0) 6.5 Ur Specific [place] (1.001 - 1.035) 1.010 Urine Protein (NEG,<30 MG/DL) TRACE H Urine Ketones (NEG) NEG Urine Nitrite (NEG) NEG Urine Bilirubin (NEG) NEG Urine Urobilinogen (0.1 - 1.0 EU/dl) 2.0 H Ur Leukocyte Esterase (NEG) MOD H Ur Microscopic SEDIMENT EXAMINED Urine RBC (0 - 5 /HPF) 10-15 H Urine WBC (0 - 2 /HPF) 15-25 H Ur Epithelial Cells (NONE,FEW) OCCAS Urine Bacteria (NEG/NONE) PACKD H Urine Mucus (FEW,NONE) RARE Urine Hemoglobin (NEG) MOD H Urine Glucose (N MG/DL) NEG Last 24 Hours of Erik Results: Blood cultures 2 May 09 negative Urine culture May 09 greater than 100,000 colonies of gram-negative rods Diagnostic Data Recent Imaging Findings: Chest x-ray negative for any acute process. X-ray of the pelvis and left femur revealed postop changes with an oblique fracture through the proximal femoral shaft. CT of the pelvis revealed a large subcutaneous fluid collection in the soft tissues lateral to the left hip, measuring 11 x 27 cm, with air in the collection. Assessment/Plan Assessment/Plan Impression: This is an 81-year-old woman with a history of atrial fibrillation, COPD, status post recent ORIF of a comminuted left femoral intertrochanteric -subtrochanteric fracture 6 weeks prior to admission after a fall admitted on May 09 with a one- week history of pain and drainage from the left hip with dysuria, urinary frequency and fever, found to be afebrile with a normal white blood cell count and with a CT of the pelvis revealing a large subcutaneous fluid collection in the soft tissues lateral to the left hip. Her presentation is concerning for a surgical site infection, with the collection suggestive of an abscess or infected hematoma, and she is scheduled for aspiration/drainage of this collection under IR later today. She will most likely require I&D in the OR and she has already been evaluated by Orthopedics, who is planning this in the next several days as she is on Pradaxa. Am most concerned about Staph aureus, including MRSA, but, with gram negative rods isolated from her urine culture in the setting of dysuria, suggesting a urinary tract infection, she will need coverage for gram negatives as well. Note a urine culture sent 5 days prior to admission was negative. With the hardware in place it may be difficult to eradicate this infection without its removal, though this may not be feasible, and this will need to be discussed further with Orthopedics. Suggestion: 1. Await aspiration of the subcutaneous fluid collection by IR later today 2. Follow-up culture of this aspiration as well as her recent blood and urine cultures 3. Begin Vancomycin 1.5 g IV every 24 hours and Ceftazidime 2 g IV every 8 hours pending above Consult Acknowledgment - Thank you for your consult request.
--- NOTE | 2017-05-10 13:26 | NUR ---
PT TO INTERVENTIONAL RADIOLOGY AT 1302 FOR HIP ASPIRATION.
[2017-05-10 15:48] VITALS: BP 164/80
[2017-05-10 17:47] VITALS: BP 142/70
[2017-05-10 22:35] VITALS: BP 160/80
[2017-05-11 06:58] VITALS: BP 140/80
--- NOTE | 2017-05-11 07:16 | PN- Student ---
Subjective Subjective: Patient seen this am awake but very groggy. Denies chest/abdominal pain, n/v, is a little short of breath but unchanged from yesterday. Denies headaches/ dizziness. Hip pain is improved from yesterday Objective Objective: Vital Signs Result Date Time Pulse Ox 96 05/11 658 B/P 140/80 05/11 658 O2 Delivery Nasal Cannula 05/11 658 O2 Flow Rate 2.5L 05/11 658 Temp 97.8 05/11 658 Pulse 66 05/11 06 Resp 20 05/11 658 Intake & Output 05/11 0000 05/10 1600 05/10 0800 Intake Total 620 320 500 Output Total 1000 Balance 620 320 -500 Intake, IV 400 300 300 Intake, Oral 220 20 200 Number 2 2 Bowel Movements Output, Urine 1000 General: awake, oriented but groggy Lungs: CTAB, no w/r/r bilaterally Heart: S1 S2, RRR Abdomen: soft, non-distended, normoactive bowel sounds, non-tender Extremities: warm, no edema/erythema, gross motor/sensory function in tact, no calf tenderness bilaterally L hip: Dressing dry and intact, stained proximally with yellow discharge from wound, tender, firm, hot, mildly erythematous Assessment/Plan Assessment: This is an 81 y/o female s/p Left hip ORIF on 03/30/17 with wound sepsis. Pain and induration have improved mildly since IR drainage and administration of antibiotics IV. Plan: Diet: NPO Pain: Continue current pain management regimen DVT ppx - ALPS GI ppx Abx: vanco/fortaz for left hip wound sepsis Pending cultures from IR drainage Daily am labs OR for washout of left hip ? today or tomorrow Will discuss with attending
--- NOTE | 2017-05-11 08:28 | PN- Housestaff ---
JACKELIN OGLESBY 05/11/17 0827: Subjective Follow-up For: Surgical site wound infection Status post IR drainage of left hip Urinary tract infection- proteus History of atrial fibrillation, Pradaxa on hold now Complaints: pain scale (0-10) Subjective: Patient was seen and examined this morning. She is alert awake and oriented to time place and person. No acute events noticed overnight. She continues to have 3 out of 10 pain left hip. Denies any fever, chills. Denies any chest pain, palpitations. continues to have cough with sputum production. afebrile Vitals normal, afebrile, heart rate 70, respiratory rate 20, blood pressure 130/ 80, saturating at 97 on 2l. Review of Systems Constitutional: Reports: see HPI. Objective Last 24 Hrs of Vital Signs/I&O Vital Signs Date Time Temp Pulse Resp B/P B/P Pulse O2 O2 Flow FiO2 Mean Ox Delivery Rate 05/11 0658 97.8 66 20 140/80 96 Nasal 2.5L Cannula 05/11 0000 Nasal 2.0L Cannula 05/10 2235 98.5 61 24 160/80 92 Nasal 2.5L Cannula 05/10 1747 142/70 05/10 1600 Nasal 2.0L Cannula 05/10 1548 99.5 79 24 164/80 99 Nasal 3.0L Cannula Intake & Output 05/11 1600 05/11 0800 05/11 0000 Intake Total 400 620 Output Total 400 Balance 0 620 Intake, IV 400 400 Intake, Oral 0 220 Number 1 2 Bowel Movements Output, Urine 400 Physical Exam General Appearance: Alert, Oriented X3, Cooperative, No Acute Distress Skin: No Rashes, left hip incision site red , indurated HEENT: Atraumatic, PERRLA, EOMI, Mucous Membr. moist/pink Neck: Supple, No JVD Lymphatic: Cervical nl Cardiovascular: Normal S1, Normal S2 Lungs: Normal Air Movement Abdomen: Normal Bowel Sounds, Soft, No Tenderness Extremities: No Clubbing, No Cyanosis, No Edema Vascular: Normal Pulses, Pulses Symmetrical Current Medications: Current Medications Sig/Tena Start time Last Medication Dose Route Stop Time Status Admin Acetaminophen 650 MG Q6P PRN 05/10 0100 AC PO Acetaminophen 1,000 MG Q6P PRN 05/10 0100 AC 05/11 IV 0746 Ampicillin 2,000 MG Q6 05/11 1239 UNVr Sodium Chloride 100 ML IV Ceftazidime 2,000 MG IQ8 05/10 1600 DC 05/11 IV 0746 Furosemide 40 MG DAILY 05/10 1000 AC 05/11 PO 1159 Guaifenesin 600 MG Q12 05/10 1143 AC 05/11 PO 1159 Levothyroxine Sodium 0.175 MG DAILY AC 05/10 0700 AC 05/11 PO 0545 Lidocaine 1 ML .STK-MED ONE 05/10 1438 DC ID 05/10 1439 Losartan Potassium 25 MG DAILY 05/10 1000 AC 05/11 PO 1159 Metoprolol Succinate 50 MG DAILY 05/10 1000 AC 05/11 PO 1159 Ondansetron HCl 4 MG ONCE ONE 05/10 1630 DC 05/10 IV 05/10 1631 1622 Paroxetine HCl 40 MG DAILY 05/10 1000 AC 05/11 PO 1159 Patient Medication 1 ED .STK-MED ONE 05/10 1411 DC Teaching ED 05/10 1412 Polyethylene Glycol 17 GM AT BEDTIME 05/10 2200 AC PO Pravastatin Sodium 10 MG DAILY 05/10 1000 AC 05/11 PO 1159 Ramelteon 8 MG AT BEDTIME NEED.. 05/10 0100 AC 05/10 PO 0130 Senna/Docusate Sodium 2 TAB AT BEDTIME 05/10 2200 AC PO Sodium Chloride 1,000 ML .[id number] 05/11 0800 AC 05/11 IV 05/11 2119 1200 Sodium Chloride 1,000 ML .Q20H 05/10 0100 DC 05/10 IV 05/10 2059 0125 Vancomycin HCl 1,500 MG Q24H 05/10 1600 DC 05/10 Sodium Chloride 250 ML IV 1740 Last 24 Hrs of Lab/Erik Results Last 24 Hrs of Labs/Mics: Laboratory Tests 05/11/17 0645: Anion Gap 10, Estimated GFR > 60, BUN/Creatinine Ratio 18.0, CBC w Diff NO MAN DIFF REQ, RBC 3.37 L, MCV 97.7, MCH 31.3 H, RDW 17.2 H, MPV 8.1, Gran % 83.8 H, Lymphocytes % 7.9 L, Monocytes % 7.2, Eosinophils % 0.8, Basophils % 0.3, Absolute Granulocytes 9.2 H, Absolute Lymphocytes 0.9 L, Absolute Monocytes 0.8 H, Absolute Eosinophils 0.1, Absolute Basophils 0, PUBS MCHC 32.1 L Microbiology 05/105 LOWER RESP: Respiratory Culture - CAN Cancelled: NUMBER OF SQUAMOUS CELLS INDICATES POOR QUALITY SPECIMEN 05/10 2345 LOWER RESP: Gram Stain - CAN Cancelled: NUMBER OF SQUAMOUS CELLS INDICATES POOR QUALITY SPECIMEN 05/10 1410 BODY FLUID: Body Fluid Culture - RES GRAM POSITIVE COCCI 05/10 141 BODY FLUID: Gram Stain - RES Assessment/Plan Assessment: 80-year-old female with past medical history significant for stage II diastolic congestive heart failure on lasix, chronic atrial fibrillation who is on metoprolol and pradaxa, bradycardia, SSS status post pacemaker placed in 2013, hypothyroidism, depression, COPD not on home oxygen, hypertension, hyperlipidemia, pulmonary hypertension with RVP Greater than 50, last echocardiogram in 2015 was brought to the [facility] emergency room with chief complaint of fever, lethargy and drainage from left hip surgical site. Vitals on admission-temperature max 99.3, heart rate 70, respiratory 20, blood pressure 160 1077, saturating at 94 on room air. Pertinent labs on admission Hemoglobin 11.6, hematocrit 36, WBC 11.2 Sodium 135, potassium 3.3, BUN 7, creatinine 0.6, glucose 100 lactate 1.3 Alkaline phosphatase 222 Urine analysis positive for esterases, WBC. Chest [id number] no acute intrathoracic processes X-ray pelvis, hip, femoral showed Postoperative changes with an oblique fracture through proximal femoral shaft as noted. pelvic CT- IMPRESSION: Status post left hip replacement. Large subcutaneous fluid collection in the soft tissues lateral to the left hip. This could be aspirated percutaneously. 1. Left hip-surgical site infection she has Comminuted left proximal femoral intertrochanteric-subtrochanteric fracture: s/p repair left comminuted intertrochanteric-subtrochanteric proximal femur fracture with long cephalo-medullary nail ( ORIF ) on 03/30/2017. Now presented to emergency department from correction with fever 100.7 and mild leukocytosis. Surgical site appears indurated with serous discharge. CAT scan confirms finding of fluid collection soft tissue. * Admitted to general medicine floor for further management. * Monitor vitals closely every shift * Monitor for fever, leukocytosis, worsening pain, surgical site drainage * IR assisted drainage of soft tissue fluid collection 05/10/2017- 180 ml. * ID on board. * OR cultures positive for alpha strep * Started ceftaz and vancomycin for surgical site infection to cover for MRSA and gram-negative rods. leter d/c ed based on cultures * Switched to ampicillin 2 g IV every 6 hours day 1 * Follow-up final OR cultures * Follow-up blood culture * Orthopedics on board, may go to surgical procedure later today- 05/11/2017- I AND D * Pradaxa on hold. Urinary tract infection Urine analysis positive for esterases, WBC, bacteria Probably cystitis * urine culture positive for Proteus * On ampicillin - day1 * Remained afebrile * Mild leukocytosis * Offer dysuria, * but no frequency, urgency, suprapubic discomfort 2. Congestive heart failure * Stage II diastolic chronic congestive heart failure * Takes Lasix 40 mg daily at home * Chest x-ray -cardiomegaly, No pulmonary edema * continue home dose of Lasix * Strict I's and O's * Daily weights. 3. Chronic atrial fibrillation * hold Pradaxa 150 mg for anticipated orthopedic surgery- I AND D * Continue metoprolol 50 mg. 4. Hypertension * Continue losartan 25 mg 5. Hypothyroidism * Continue Synthyroid 0.17 mg 6. Depression * Continue paroxetine 40 mg daily 7. Hyperlipidemia * Continue statins Full code reg diet DVT prophylaxis- hold Pradaxa pain pathway Problem List: 1. Infected wound Pain Ratin Pain Location: left hip Pain Goal: Remain pain free Pain Plan: tylinol morphine Tomorrow's Labs & Rationales: cbc in the setting of infection WINNIE PACHECO MD 05/11/17 1132: Attending MD Review Statement Attending Statement Attending MD Statement: examined this patient, discuss w/resident/PA/WINDING DEPARTMENT SUPERVISOR, agreed w/resident/PA/WINDING DEPARTMENT SUPERVISOR, reviewed EMR data (avail), discussed with case mgmt, amended to note Attending Assessment/Plan: The patient was seen and discussed with house staff. Agree with plan of care. To go to OR today with ortho for debridement/drainage. Continue antibiotics - await ID input based on cultures. Patient also has UTI.
[2017-05-11 08:34] LABS: ABSOLUTE BASOPHIL COUNT 0 /CUMM (0.0-0.2); ABSOLUTE EOSINOPHIL COUNT 0.1 /CUMM (0.0-0.7); ABSOLUTE GRANULOCYTE CT 9.2 /CUMM (1.4-6.5); ABSOLUTE LYMPH COUNT 0.9 /CUMM (1.2-3.4); ABSOLUTE MONOCYTE COUNT 0.8 /CUMM (0.10-0.60); BASOPHIL % 0.3 % (0.0-2.0); EOSINOPHIL % 0.8 % (0-5); HEMATOCRIT 32.9 % (37-47); MEAN CORPUSCULAR HGB 31.3 PG (27.0-31.0); MEAN CORPUSCULAR HGB CONC 32.1 G/DL (33.0-37.0); MEAN CORPUSCULAR VOLUME 97.7 FL (81.0-99.0); MEAN PLATELET VOLUME 8.1 FL (7.4-10.4); PLATELET COUNT 331 /CUMM (130-400); RBC DISTRIBUTION WIDTH 17.2 % (11.5-14.5); RED BLOOD CELL CT 3.37 /CUMM (4.20-5.40)
--- NOTE | 2017-05-11 09:34 | ULTRASOUND REPORT ---
CLINICAL HISTORY: The patient is a 81-year-old female with right painful left hip region in the setting of internal fixation performed on 03/30/2017, who presents to interventional radiology for aspiration of the subcutaneous fluid collection in the region of the left hip. PROCEDURES: 1. Limited ultrasound evaluation of the left hip. 2. Ultrasound guided aspiration of the left lower extremity fluid collection near the hip. PHYSICIANS: Emma Oconnor M.D., Ph.D. COMPLICATIONS: None. ESTIMATED BLOOD LOSS: <5 mL. SPECIMENS: A specimen was collected and sent for the requested studies. PROCEDURE NOTE: Informed consent was obtained from the patient prior to the procedure. During this process, the procedure and potential alternatives were explained along with the intended outcome and benefits. The risks of the procedure, including the possibility of an unsuccessful procedure, as well as the risk of not doing the procedure, were discussed. The patient was given the opportunity to ask questions regarding the procedure and appeared competent to make decisions. A signed consent form documenting this discussion was placed in the medical record. A time-out procedure was performed. The patient was placed supine on the ultrasound table. A time-out was performed. The left upper leg/hip was prepped and draped in the usual sterile fashion. 5 mL of 1% lidocaine was used to obtain local anesthesia of the skin and deeper tissues. A 5 Fr Yueh needle/catheter was passed through the skin into the collection using ultrasound guidance. 180 mL of cloudy thick nonclotting bloody fluid was aspirated , divided and sent for the requested studies. The patient tolerated the procedure well. FINDINGS: 180 mL of cloudy thick nonclotting bloody fluid aspirated from a collection in the left hip area. IMPRESSION: Successful ultrasound-guided aspiration. PLAN: The patient was stable after the procedure and was transferred to the interventional recovery area. The patient will be transferred to the floor.
[2017-05-11 10:18] LABS: GRANULOCYTE % 83.8 % (42.2-75.2)
--- NOTE | 2017-05-11 11:48 | PN- Infect Dx ---
Subjective Subjective: Afebrile without complaints Objective Last 24 Hrs of Vital Signs/I&O Vital Signs Date Time Temp Pulse Resp B/P B/P Pulse O2 O2 Flow FiO2 Mean Ox Delivery Rate 05/11 0658 97.8 66 20 140/80 96 Nasal 2.5L Cannula 05/11 0000 Nasal 2.0L Cannula 05/10 2235 98.5 61 24 160/80 92 Nasal 2.5L Cannula 05/10 1747 142/70 05/10 1600 Nasal 2.0L Cannula 05/10 1548 99.5 79 24 164/80 99 Nasal 3.0L Cannula Intake & Output 05/11 1600 05/11 0800 05/11 0000 Intake Total 400 620 Output Total 400 Balance 0 620 Intake, IV 400 400 Intake, Oral 0 220 Number 1 2 Bowel Movements Output, Urine 400 Physical Exam Other Physical Findings: She appears comfortable in no acute distress Lungs are clear Heart regular rhythm with no murmur Extremities left hip incision with yellow drainage on the dressing, with no erythema or tenderness on palpation Results Last 24 Hours of Lab Results: Laboratory Tests 05/11 0645 Chemistry Sodium (137 - 145 mmol/L) 135 L Potassium (3.5 - 5.1 mmol/L) 3.6 Chloride (98 - 107 mmol/L) 97 L Carbon Dioxide (22 - 30 mmol/L) 29 Anion Gap (5 - 16) 10 BUN (7 - 17 mg/dL) 9 Creatinine (0.5 - 1.0 mg/dL) 0.5 Estimated GFR (>60 ml/min) > 60 BUN/Creatinine Ratio (7 - 25 %) 18.0 Hematology CBC w Diff NO MAN DIFF REQ WBC (4.8 - 10.8 /CUMM) 11.0 H RBC (4.20 - 5.40 /CUMM) 3.37 L Hgb (12.0 - 16.0 G/DL) 10.5 L Hct (37 - 47 %) 32.9 L MCV (81.0 - 99.0 FL) 97.7 MCH (27.0 - 31.0 PG) 31.3 H RDW (11.5 - 14.5 %) 17.2 H Plt Count (130 - 400 /CUMM) 331 MPV (7.4 - 10.4 FL) 8.1 Gran % (42.2 - 75.2 %) 83.8 H Lymphocytes % (20.5 - 51.1 %) 7.9 L Monocytes % (1.7 - 9.3 %) 7.2 Eosinophils % (0 - 5 %) 0.8 Basophils % (0.0 - 2.0 %) 0.3 Absolute Granulocytes (1.4 - 6.5 /CUMM) 9.2 H Absolute Lymphocytes (1.2 - 3.4 /CUMM) 0.9 L Absolute Monocytes (0.10 - 0.60 /CUMM) 0.8 H Absolute Eosinophils (0.0 - 0.7 /CUMM) 0.1 Absolute Basophils (0.0 - 0.2 /CUMM) 0 PUBS MCHC (33.0 - 37.0 G/DL) 32.1 L Last 24 Hours of Erik Results: Blood cultures 2 May 09 negative Left hip soft tissue collection aspiration May 10 positive for alpha strep Urine culture May 09 greater than 100,000 colonies of Proteus resistant only to Nitrofurantoin Assessment/Plan Impression: Stable status post aspiration of 180 mL of cloudy, thick bloody fluid yesterday from a soft tissue collection lateral to the left hip now 6 weeks status post ORIF of a left comminuted femoral intertrochantericsubtrochanteric fracture and must assume that this infection is involving the hardware. She is apparently scheduled for the OR later today for an I&D of the left hip. With the hardware in place this infection may not be cleared without removal of the hardware, though it is may not be feasible to do this at this time. The positive urine culture for Proteus is noted and, with her history of dysuria, this can be treated along with the alpha strep which was isolated from the left hip subcutaneous collection. She is currently on Vancomycin and Ceftazidime but, given the culture results, her antibiotics can be adjusted. Suggestion: 1. Await OR, apparently scheduled for later today 2. Follow-up cultures from the recent aspiration and the OR 3. Discontinue Vancomycin and Ceftazidime 4. Begin Ampicillin 2 g IV every 6 hours
[2017-05-11 14:01] VITALS: BP 142/80
--- NOTE | 2017-05-11 15:29 | Discharge Summary ---
See Addendum Visit Information Visit Dates Admission Date: 05/09/17 Discharge Date: 05/17/2017 Hospital Course Course Attending Physician: WINNIE PACHECO MD Primary Care Physician: KATERINA LEON MD Consulting Request: Consulting Specialty: Orthopedics Hospital Course: 81-year-old female with past medical history significant for sick sinus S/P pacemaker, currently on Pradaxa, hypothyroidism and COPD, S/P repair of left comminuted intertrochanteric subtrochanteric proximal femur fracture with medullary nail, was sent to ER from [facility] for fever of 100.7, patient has mild leukocytosis, surgical site appears indurated, erythematous with mild discharge. CT scan confirms the finding of fluid collection in soft tissue. Patient was admitted to for Abx therapy and wash out of the infected wound. NOAC was held and patient had US guided drainage of the pus and sample was sent for Cx and Gram satin. After drainage, patient was started on Vancomycin and Ceftazidime for broad spectrum coverage. Pt got surgical wound wash out on 05/11/2017. On 05/11/2017, patient urine Cx grew Proteus Mirabilis and Joint drainage was also positive for Gram + cocci in chains that was susceptible Staph Aureus. Patient's Abx regimen was switched to IV Vancomycine-->Ampicillin--> now Cefazolin for total of 6 weeks. Pradaxa resumed. Con't until advised otherwise by orthopedic surgeon. Patient would be discharge to [facility] for rehab and completion of her IV course. Allergies: Coded Allergies: coconut oil (ITCHING ALL OVER 07/31/16) codeine ("MY BP GOES WAY DOWN" 07/31/16) Significant Procedures: OR Washout of inefcted hip Pertinent Lab Results: Laboratory Tests 05/16 05/16 1032 0530 Chemistry Troponin I Pending Hematology CBC w Diff NO MAN DIFF REQ WBC (4.8 - 10.8 /CUMM) 9.1 RBC (4.20 - 5.40 /CUMM) 3.27 L Hgb (12.0 - 16.0 G/DL) 10.1 L Hct (37 - 47 %) 31.7 L MCV (81.0 - 99.0 FL) 97.1 MCH (27.0 - 31.0 PG) 30.9 RDW (11.5 - 14.5 %) 16.8 H Plt Count (130 - 400 /CUMM) 378 MPV (7.4 - 10.4 FL) 7.5 Gran % (42.2 - 75.2 %) 74.8 Lymphocytes % (20.5 - 51.1 %) 14.3 L Monocytes % (1.7 - 9.3 %) 6.4 Eosinophils % (0 - 5 %) 3.9 Basophils % (0.0 - 2.0 %) 0.6 Absolute Granulocytes (1.4 - 6.5 /CUMM) 6.8 H Absolute Lymphocytes (1.2 - 3.4 /CUMM) 1.3 Absolute Monocytes (0.10 - 0.60 /CUMM) 0.6 Absolute Eosinophils (0.0 - 0.7 /CUMM) 0.4 Absolute Basophils (0.0 - 0.2 /CUMM) 0.1 PUBS MCHC (33.0 - 37.0 G/DL) 31.9 L 05/15 0540 Hematology CBC w Diff NO MAN DIFF REQ WBC (4.8 - 10.8 /CUMM) 9.1 RBC (4.20 - 5.40 /CUMM) 3.27 L Hgb (12.0 - 16.0 G/DL) 10.2 L Hct (37 - 47 %) 31.9 L MCV (81.0 - 99.0 FL) 97.6 MCH (27.0 - 31.0 PG) 31.3 H RDW (11.5 - 14.5 %) 17.1 H Plt Count (130 - 400 /CUMM) 381 MPV (7.4 - 10.4 FL) 7.8 Gran % (42.2 - 75.2 %) 66.7 Lymphocytes % (20.5 - 51.1 %) 18.9 L Monocytes % (1.7 - 9.3 %) 8.9 Eosinophils % (0 - 5 %) 5.1 H Basophils % (0.0 - 2.0 %) 0.4 Absolute Granulocytes (1.4 - 6.5 /CUMM) 6.1 Absolute Lymphocytes (1.2 - 3.4 /CUMM) 1.7 Absolute Monocytes (0.10 - 0.60 /CUMM) 0.8 H Absolute Eosinophils (0.0 - 0.7 /CUMM) 0.5 Absolute Basophils (0.0 - 0.2 /CUMM) 0 PUBS MCHC (33.0 - 37.0 G/DL) 32.0 L ESR Westergren (0 - 20 MM) 35 H Disposition Summary Disposition Principal Diagnosis: Surgical wound infection Additional Diagnosis: ORIF of the left femur Discharge Disposition: SNF Discharge Instructions General Discharge Information Code Status: Full Code Patient's Diet: Heart Healthy Patient's Activity: As tolerated Follow-Up Instructions/Appts: Follow up with your orthopedic surgeon as instructed by orthopedic team Follow up with Dr. Jean Baptiste after 6 weeks of IV therapy. Follow up with your PCP with 7 days after discharge. Medications at Discharge Discharge Medications: Continue taking these medications: Paroxetine HCl (Paroxetine HCl) 40 MG TABLET 1 Tablet ORAL DAILY Comments: Last Taken:04/02/17 Time:0900 Levothyroxine Sodium (Synthroid) 175 MCG TABLET 1 Tablet ORAL DAILY BEFORE BREAKFAST Comments: Last Taken:04/02/17 Time:0800 Metoprolol Succinate (Metoprolol Succinate) 50 MG TAB.ER.24H 1 Tablet ORAL DAILY Comments: Last Taken:04/02/17 Time:0900 Dabigatran Etexilate Mesylate (Pradaxa 150 MG) 150 MG CAPSULE 1 Capsule ORAL TWICE DAILY Comments: Last Taken:04/02/17 Time:0900 Losartan Potassium (Cozaar) 25 MG TABLET 1 Tablet ORAL DAILY Comments: Last Taken:04/02/17 Time:0900 Pravastatin Sodium (Pravastatin Sodium) 10 MG TABLET 1 Tablet ORAL DAILY Qty = 90 Comments: Last Taken:04/01/17 Time:1630 Multivitamin (Multi-Day Vitamins) 1 EACH TABLET 1 Tablet ORAL DAILY Comments: Last Taken:NOT GIVEN IN HOSPITAL Time: Vit A,C & E/Lutein/Minerals (Ocuvite With Lutein Tablet) 1 EACH TABLET 1 Tablet ORAL DAILY Comments: Last Taken:NOT GIVEN IN HOSPITAL Time: Furosemide (Furosemide) 40 MG TABLET 1 Tablet ORAL DAILY Comments: Last Taken:04/02/17 Time:0900 Polyethylene Glycol 3350 (Miralax) 17 GRAM POWD.PACK 1 Packet ORAL DAILY Qty = 30 Instructions: dissolve in water Comments: Last Taken:04/01/17 Time:1120 Docusate Sodium (Docusate Sodium) 100 MG CAPSULE 1 Capsule ORAL TWICE DAILY Qty = 30 Comments: Last Taken:04/01/17 Time:1120 Sennosides (Senna) 8.6 MG TABLET 2 Tablet ORAL DAILY Qty = 60 Comments: Last Taken:03/29/17 Time:2100 Oxycodone HCl/Acetaminophen (Percocet 5-325 MG Tablet) 5 MG-325 MG TABLET 1 Tablet ORAL EVERY 4 HOURS NEEDED as needed for PAIN SCALE 4-6 (MODERATE ) Qty = 10 Instructions: not to exceed more than 3000 mg of acetaminophen daily Comments: Last Taken:04/02/17 Time:1330 Acetaminophen (Acephen) 650 MG SUPP.RECT 1 SUPPOSITORY RECTALLY Q6H as needed for PAIN/TEMP>101 Acetaminophen (Tylenol) 325 MG TABLET 2 Tablet ORAL Q6H as needed for PAIN/TEMP>101 Oxycodone HCl/Acetaminophen (Percocet 5-325 MG Tablet) 5 MG-325 MG TABLET 2 Tablet ORAL Q4H as needed for SEVERE PAIN Bisacodyl (Dulcolax) 10 MG SUPP.RECT 1 Suppository RECTAL DAILY as needed for CONSTIPATION Na Phos,M-B/Na Phos,Di-Ba (Fleet Enema) 19 GRAM-7 GRAM/118 ML ENEMA 1 Enema RECTAL DAILY as needed for CONSTIPATION Magnesium Hydroxide (Milk Of Magnesia) 400 MG/5 ML ORAL.SUSP 30 Milliliters ORAL Every 3 days as needed for CONSTIPATION Naloxone HCl (Narcan) 4 MG/ACTUATION SPRAY 4 Milligram In the nose As Directed as needed for OPIOID INDUCED RESP. DEPRESSIO Umeclidinium Brm/Vilanterol Tr (Anoro Ellipta 62.5-25 Mcg INH) 62.5 MCG-25 MCG/ ACTUATION BLST.W.DEV 1 PUFF Inhale through mouth DAILY Cefazolin Sodium/D5w (Cefazolin 2 G/50 Ml-D5w Bag) 2 GRAM/50 ML PIGGYBACK 2 Gram INTRAVEN EVERY 8 HOURS Qty = 114 Instructions: You will require one 2mg bag every 8 hrs (3 times a day). For a total of 6 weeks. Stop date is Jun 25, 2017. This prescription has been renewed Start taking the following new medications: Cefazolin Sodium/D5w (Cefazolin 2 G/50 Ml-D5w Bag) 2 GRAM/50 ML PIGGYBACK 2 Gram INTRAVEN EVERY 8 HOURS Qty = 1 Refills = 38 Copies To: CAROLYN DE JESUS,KATERINA Attending MD Review Statement Documenting Attending: WINNIE PACHECO MD
--- NOTE | 2017-05-11 16:47 | RADIOLOGY REPORT ---
EXAMINATION: XR PORTABLE CHEST CLINICAL INFORMATION: Status post PICC placement. COMPARISON: Chest radiograph done on 05/09/2017. TECHNIQUE: Portable frontal view of the chest was obtained. FINDINGS: There is a right-sided PICC line present, new since prior study. The tip of the catheter is seen projecting at the cavoatrial junction. There is a right-sided single-lead pacer wire present, appear intact. Nonspecific bibasilar airspace disease is noted, may represent hypoventilatory changes, atelectasis, similar to prior study. The remainder of the lung marmolejo appear clear. The cardiomediastinal silhouette is within normal limits. There is no pleural effusion. IMPRESSION: Interval placement of a right-sided PICC line with its tip seen projecting at the cavoatrial junction. No other significant change.
--- NOTE | 2017-05-11 17:01 | NUR ---
SL PICC PLACEMENT REQUESTED. PATIENT HAS A LEFT MASTECTOMY AND A RIGHT CHEST PACEMAKER. PACEMAKER PLACED NOVEMBER 13, 2013. SPOKE WITH PATIENT'S FAN BALANCER, DR. BAI, TO OK THE PLACEMENT OF PICC IN THE RIGHT ARM. DR. BAI GAVE OK TO PLACE PICC IN RIGHT ARM.
--- NOTE | 2017-05-11 18:40 | PN- Orthopedic ---
Surgical Brief Attending Note Brief Attending Note: Patient seen and examined this evening; images reviewed. 81yo F sustained left hip intertroch/subtroch fracture in March 2017, underwent open reduction and intramedullary nail stabilization by Dr. Mayorga on 03/30/17. She reports ongoing pain in the left hip since that time, as well as mild drainage from the incision. Following discharge from [facility], she has been at [facility]. She presented to [facility] earlier this week with increased pain, redness , and drainage from the left hip incision. Tmax of 101.9. Initial orthopedic consult by Dr. Diallo, please refer to his note for additional information. Imaging of the left hip showed a large fluid collection; this was drainage by IR yesterday with removal of 180cc of purulent appearing fluid. Abx were held until fluid was drained. Cultures grew alpha strep. Plan for OR today for formal incision, irrigation, and debridement of left hip wound. Hardware will remain in place at this time as her fracture is highly comminuted and not yet healed. Infectious disease has been consulted; appreciate their care of this patient. She is currently on Amoxicillin and a PICC line was placed earlier today.
--- NOTE | 2017-05-11 21:36 | Operative Report ---
Operative/Inv Procedure Report Surgery Date: 05/11/17 Name of Procedure: Incision and drainage of left hip infection s/p IM nail Pre-Operative Diagnosis: Left hip infection s/p IM nail for subtroch fracture Post-Operative Diagnosis: Left hip infection s/p IM nail for subtroch fracture Estimated Blood Loss: 50ml to 100ml Surgeon/Video Game Script Writer: Deedee Perez MD Anesthesia: laryngeal mask airway Drains: 2 flat JEET drains Specimens: Deep tissue sample Microbiology: Deep tissue sample Complications: None Condition: Stable Operative/Procedure Note Note: INDICATION FOR PROCEDURE: 81yo female underwent left hip open reduction and IM nail stabilization of intertrochanteric/subtrochanteric hip fracture on 03/30/[address] Mayorga. She was subsequently discharge to [facility]; she reports ongoing pain and mild wound drainage. She presented to [facility] earlier this week with redness, swelling, and purulent drainage from the left hip. She had a temperature of 101.9. A CT scan of the hip showed a large lateral fluid collection; it was percutaneously drainage by IR with removal of 180cc of cloudy fluid; culture grew alpha strep. She is currently on Ampicillin per Infectious Disease recommendation. After discussing the risks and benefits of surgery, the patient was taken to the operating room for formal debridement of the left hip wound. OPERATIVE REPORT: Ms. Moreno was brought to the operating room on 05/11/2017. She was met in the pre-operative area, where her left hip was marked and her medical history was reviewed. She was then brought into the OR. A time-out was performed in which the patient, the operative extremity, and the planned procedure were reviewed. A SCD was placed on the right lower leg, but VTE chemoprophylaxis was held. The patient was induced under general anesthesia. She was repositioned lateral with the left side up using a beanbag. All bony prominences were padded and an axillary roll placed. Amalia-operative ancef was given prior to incision; the patient's last dose of ampicillin was given at 2pm. The left hip and lower leg were prepped with betadine scrub and paint and draped in the usual sterile fashion. The 30cm healed lateral incision was re-incised and taken through the skin and subcutaneous tissues. There was no discrete sinus tract, but a small wound from the prior IR aspiration performed yesterday. The tissue was firm and indurated. The deep tissue opened easily with blunt dissection and a large volume of purulent fluid was expressed from the proximal portion of the wound. The fascia was intact over the proximal hardware and greater trochanter. A large curette was used to debride the tissue superficial to the fascia and up to the skin. In the distal aspect of the wound, another purulent fluid collection was encountered. There was a small opening noted in the fascia of the iliotibial band, just distal to the lag screw. The fascial opening was extended proximally about 7cm. A clear, serous-appearing fluid collection was encountered at the level of the lag screw. The hardware of the lag screw and the nail was visualized without surrounding lateral bone. No additional areas of purulence were noted. Six liters of saline with bacitracin were used to irrigate the wound with pulse lavage. Following the first six liters, the wound was again debrided using the large curette. Deep tissue samples were sent for culture. An additional three liters of irrigation were used, followed by another mechanical debridement and repeat irrigation. The fascia was then closed with #1 PDS suture. Two flat JEET drains were placed in the wound superficial to the fascia, one proximal and one distal. The wound was then closed in layers using 0 PDS and #2-0 PDS, with intermittent irrigation of the layers. Ths skin was closed with #3-0 interrupted Nylon suture. The wound was dressed with xeroform, gauze, and ABD pads, which were secured with foam tape. The drains were sutured in place using #3-0 Nylon. Both drains held suction with a small amount of serosanginous drainage. At the conclusion of the procedure, the patient was repositioned supine on a stretcher. A Bowers cather was placed for patient comfort. She was then extubated and taken to the recovery room in stable condition.
--- NOTE | 2017-05-11 22:43 | NUR ---
PATIENT BACK ON UNIT FROM PACU. VITALS STABLE.
--- NOTE | 2017-05-11 22:46 | PN- Orthopedic ---
Subjective Subjective: POSTOP CHECK Pt is now s/p washout of the Left hip. A copious amount of pus was drained intraoperatively. Pt is seen in pacu and has been complaining of significant pain. She became somewhat hypoxic after dilaudid, but tolerated toradol and tylenol much better. She reports better comfort now. No nausea. Sofiya ice chips. Objective Vital Signs and I&Os Vital Signs Date Time Temp Pulse Resp B/P B/P Pulse O2 O2 Flow FiO2 Mean Ox Delivery Rate 05/11 1600 93 Nasal 2.0L Cannula 05/11 1401 98.9 80 18 142/80 95 Nasal 2.0L Cannula 05/11 1327 Nasal 2.5L Cannula 05/11 1259 Nasal 2.5L Cannula 05/11 0800 94 Nasal 2.0L Cannula 05/11 0658 97.8 66 20 140/80 96 Nasal 2.5L Cannula 05/11 0000 Nasal 2.0L Cannula Intake & Output 05/11 1600 05/11 0800 05/11 0000 05/10 1600 05/10 0800 05/10 0000 Intake Total 50 400 620 320 500 Output Total 400 1000 75 Balance 50 0 620 320 -500 -75 Intake, IV 400 400 300 300 Intake, Oral 50 0 220 20 200 Number 1 1 2 2 Bowel Movements Output, Urine 400 1000 75 Patient 235 lb 235 lb Weight Weight Reported by Patient Measurement Method PACU vitals: 129/58, HR 60, Sat 95% on 2L via NC, T98.7 U/O: 250 JEET output: 15 and 25. Physical Exam: Gen: Pt is resting, but arousable. Drowsy, but verbalizes. Ext: L hip dressing is c/d/i. It covers most of the thigh. LE sensation is intact and pt is able to move her toes. Assessment/Plan Assessment/Plan Pt is an 81 yo F with a hx of afib, chf, htn, depression, who is now s/p L hip washout due to infected hardware (s/p [facility] 03/30/17). Plan: -Pain control with tylenol or morphine as needed. Ok to use toradol if needed. -PT consult for mobilization in AM. Non-weight bearing. -Will defer DVT ppx to medical team. -Plan for dressing change on POD #2. -Continue ampicillin as per ID. -Labs in AM.
[2017-05-11 23:30] VITALS: BP 114/58
[2017-05-12 04:05] VITALS: BP 108/56
[2017-05-12 06:22] VITALS: BP 120/60
--- NOTE | 2017-05-12 07:57 | PN- Orthopedic ---
See Addendum Subjective Subjective: pod#1 s/p i&d left hip wound sepsis no major issues overnight resting comfortably now denies cp, sob, no n+v Objective Vital Signs and I&Os Vital Signs Date Time Temp Pulse Resp B/P B/P Pulse O2 O2 Flow FiO2 Mean Ox Delivery Rate 05/12 0622 98.7 59 20 120/60 97 Nasal Cannula 05/12 0405 98.2 67 18 108/56 96 Nasal Cannula 05/12 0000 Nasal 2.0L Cannula 05/11 2330 97.6 61 14 114/58 96 Nasal 2.0L Cannula 05/11 1600 93 Nasal 2.0L Cannula 05/11 1401 98.9 80 18 142/80 95 Nasal 2.0L Cannula 05/11 1327 Nasal 2.5L Cannula 05/11 1259 Nasal 2.5L Cannula 05/11 0800 94 Nasal 2.0L Cannula Intake & Output 05/12 0800 05/12 0000 05/11 1600 05/11 0800 05/11 0000 05/10 1600 Intake Total 890 50 400 620 320 Output Total 285 400 Balance 605 50 0 620 320 Intake, IV 650 400 400 300 Intake, Oral 240 50 0 220 20 Number 1 1 2 Bowel Movements Output, 85 Drainage Output, Urine 200 400 Patient 235 lb Weight Physical Exam: cv: rrr lungs: clear abd: soft, +bs ext: drsg dry/intact thigh soft distal cms intact moderate calf tenderness to palp but soft cecy: minimal serosanguinous drainage foely: clear concentrated urine Assessment/Plan Assessment/Plan ortho stable plan oob to chair f/u OR cx's and am labs cont ampicillin cont strict nwb left le
[2017-05-12 08:34] LABS: ABSOLUTE BASOPHIL COUNT 0 /CUMM (0.0-0.2); ABSOLUTE EOSINOPHIL COUNT 0 /CUMM (0.0-0.7); ABSOLUTE GRANULOCYTE CT 10.2 /CUMM (1.4-6.5); ABSOLUTE LYMPH COUNT 0.9 /CUMM (1.2-3.4); ABSOLUTE MONOCYTE COUNT 0.8 /CUMM (0.10-0.60); BASOPHIL % 0.2 % (0.0-2.0); EOSINOPHIL % 0.4 % (0-5); GRANULOCYTE % 85.4 % (42.2-75.2); HEMATOCRIT 29.4 % (37-47); MEAN CORPUSCULAR HGB 31.5 PG (27.0-31.0); MEAN CORPUSCULAR VOLUME 98.5 FL (81.0-99.0); MEAN PLATELET VOLUME 8.3 FL (7.4-10.4); PLATELET COUNT 290 /CUMM (130-400); RBC DISTRIBUTION WIDTH 17.1 % (11.5-14.5); RED BLOOD CELL CT 2.98 /CUMM (4.20-5.40)
--- NOTE | 2017-05-12 08:38 | PN- Housestaff ---
Assessment/Plan Assessment: 80-year-old female with past medical history significant for stage II diastolic congestive heart failure on lasix, chronic atrial fibrillation who is on metoprolol and pradaxa, bradycardia, SSS status post pacemaker placed in 2013, hypothyroidism, depression, COPD not on home oxygen, hypertension, hyperlipidemia, pulmonary hypertension with RVP Greater than 50, last echocardiogram in 2015 was brought to the [facility] emergency room with chief complaint of fever, lethargy and drainage from left hip surgical site. Vitals on admission-temperature max 99.3, heart rate 70, respiratory 20, blood pressure 160 1077, saturating at 94 on room air. Pertinent labs on admission Hemoglobin 11.6, hematocrit 36, WBC 11.2 Sodium 135, potassium 3.3, BUN 7, creatinine 0.6, glucose 100 lactate 1.3 Alkaline phosphatase 222 Urine analysis positive for esterases, WBC. Chest [id number] no acute intrathoracic processes X-ray pelvis, hip, femoral showed Postoperative changes with an oblique fracture through proximal femoral shaft as noted. pelvic CT- IMPRESSION: Status post left hip replacement. Large subcutaneous fluid collection in the soft tissues lateral to the left hip. This could be aspirated percutaneously. 1. Left hip-surgical site infection she has Comminuted left proximal femoral intertrochanteric-subtrochanteric fracture: s/p repair left comminuted intertrochanteric-subtrochanteric proximal femur fracture with long cephalo-medullary nail ( ORIF ) on 03/30/2017. [facility] with fever 100.7 and mild leukocytosis. Surgical site appears indurated with serous discharge. CAT scan confirms finding of fluid collection soft tissue. * Admitted to general medicine floor for further management. * Monitor vitals closely every shift * Monitor for fever, leukocytosis, worsening pain, surgical site drainage * IR assisted drainage of soft tissue fluid collection 05/10/2017- 180 ml. * ID on board. * OR cultures positive for alpha strep * Started ceftaz and vancomycin for surgical site infection to cover for MRSA and gram-negative rods. leter d/c ed based on cultures * Switched to ampicillin 2 g IV every 6 hours day 1 * Follow-up final OR cultures * Follow-up blood culture * Orthopedics on board, may go to surgical procedure later today- 05/11/2017- I AND D * Pradaxa on hold. Urinary tract infection Urine analysis positive for esterases, WBC, bacteria Probably cystitis * urine culture positive for Proteus * On ampicillin - day1 * Remained afebrile * Mild leukocytosis * Offer dysuria, * but no frequency, urgency, suprapubic discomfort 2. Congestive heart failure * Stage II diastolic chronic congestive heart failure * Takes Lasix 40 mg daily at home * Chest x-ray -cardiomegaly, No pulmonary edema * continue home dose of Lasix * Strict I's and O's * Daily weights. 3. Chronic atrial fibrillation * hold Pradaxa 150 mg for anticipated orthopedic surgery- I AND D * Continue metoprolol 50 mg. 4. Hypertension * Continue losartan 25 mg 5. Hypothyroidism * Continue Synthyroid 0.17 mg 6. Depression * Continue paroxetine 40 mg daily 7. Hyperlipidemia * Continue statins Full code reg diet DVT prophylaxis- hold Pradaxa pain pathway
--- NOTE | 2017-05-12 09:36 | PN- Housestaff ---
See Addendum Subjective Follow-up For: Surgical wound infection UTI Complaints: no complaints Subjective: I saw the patient in the morning she was quite comfortable. She had no particular complaint.no pain at surgical site. she had bowel movement yesterday and she does not complain of chest pain palpitations or shortness of breath Review of Systems Constitutional: Denies: no symptoms, chills, diaphoresis, fever, malaise, weakness, unexplained weight loss. EENTM: Denies: no symptoms, blurred vision, double vision, visual changes, eye pain, eye drainage, eye tearing, icterus, ear discharge, ear pain, ear redness, hearing changes, nasal congestion, epistaxis, nasal pain, throat pain, throat swelling, mouth pain, tooth pain. Cardiovascular: Reports: no symptoms. Respiratory: Reports: no symptoms. Gastrointestinal: Denies: constipation, nausea, vomiting. Genitourinary: Reports: no symptoms. Musculoskeletal: Reports: no symptoms. Skin: Reports: no symptoms. Neurological/Psychological: Reports: no symptoms. Hematologic/Endocrine: Reports: no symptoms. Immunologic/Allergic: Reports: no symptoms. Objective Last 24 Hrs of Vital Signs/I&O Vital Signs Date Time Temp Pulse Resp B/P B/P Pulse O2 O2 Flow FiO2 Mean Ox Delivery Rate 05/12 0622 98.7 59 20 120/60 97 Nasal Cannula 05/12 0405 98.2 67 18 108/56 96 Nasal Cannula 05/12 0000 Nasal 2.0L Cannula 05/11 2330 97.6 61 14 114/58 96 Nasal 2.0L Cannula 05/11 1600 93 Nasal 2.0L Cannula 05/11 1401 98.9 80 18 142/80 95 Nasal 2.0L Cannula 05/11 1327 Nasal 2.5L Cannula 05/11 1259 Nasal 2.5L Cannula Intake & Output 05/12 1600 05/12 0800 05/12 0000 Intake Total 890 Output Total 285 Balance 605 Intake, IV 650 Intake, Oral 240 Output, 85 Drainage Output, Urine 200 Physical Exam General Appearance: Alert, Oriented X3, Cooperative, No Acute Distress Skin: No Rashes, No Breakdown, No Significant Lesion HEENT: Mucous Membr. moist/pink Cardiovascular: Normal S1, Normal S2 Lungs: Clear to Auscultation Abdomen: Soft Neurological: Normal Speech Extremities: she has 2 drains placed in left leg. There is no erythema or induration. Dressing is clean and dry Current Medications: Current Medications Sig/Tena Start time Last Medication Dose Route Stop Time Status Admin Acetaminophen 1,000 MG .STK-MED ONE 05/11 2224 DC IV 05/11 2225 Acetaminophen 650 MG Q6P PRN 05/11 2130 AC PO Acetaminophen 650 MG Q6P PRN 05/10 0100 DC PO Acetaminophen 1,000 MG Q6P PRN 05/10 0100 DC 05/11 IV 0746 Ampicillin 2,000 MG Q6 05/11 2359 AC 05/12 Sodium Chloride 100 ML IV 0610 Ampicillin 2,000 MG Q6H 05/11 2130 DC Sodium Chloride 100 ML IV Ampicillin 2,000 MG Q6H 05/11 2000 DC Sodium Chloride 100 ML IV Ampicillin 2,000 MG Q6 05/11 1239 DC 05/11 Sodium Chloride 100 ML IV 1404 Ceftazidime 2,000 MG IQ8 05/10 1600 DC 05/11 IV 0746 Dexamethasone 4 MG .STK-MED ONE 05/11 1840 DC IM 05/11 1841 Dextrose/Sodium 1,000 ML Q13H 05/11 2130 AC 05/12 Chloride IV 0009 Fentanyl Citrate 200 MCG .STK-MED ONE 05/11 1840 DC IM 05/11 1841 Furosemide 40 MG DAILY 05/12 1000 AC PO Furosemide 40 MG DAILY 05/10 1000 DC 05/11 PO 1159 Guaifenesin 600 MG Q12 05/11 2200 AC 05/11 PO 2328 Guaifenesin 600 MG Q12 05/10 1143 DC 05/11 PO 1159 Heparin Sodium 5,000 UNIT Q8 05/12 0600 CAN (Porcine) SC Hydromorphone HCl 2 MG .STK-MED ONE 05/11 2140 DC IM 05/11 2141 Hydromorphone HCl 2 MG .STK-MED ONE 05/11 1839 DC IM 05/11 1840 Ketorolac 30 MG .STK-MED ONE 05/11 2225 DC Tromethamine IM 05/11 2226 Levothyroxine Sodium 0.175 MG DAILY AC 05/12 0700 AC 05/12 PO 0610 Levothyroxine Sodium 0.175 MG DAILY AC 05/10 0700 DC 05/11 PO 0545 Losartan Potassium 25 MG DAILY 05/12 1000 AC PO Losartan Potassium 25 MG DAILY 05/10 1000 DC 05/11 PO 1159 Metoprolol Succinate 50 MG DAILY 05/12 1000 AC PO Metoprolol Succinate 50 MG DAILY 05/10 1000 DC 05/11 PO 1159 Morphine Sulfate 2 MG Q4P PRN 05/11 2130 AC IV Ondansetron HCl 4 MG .STK-MED ONE 05/11 1840 DC IM 05/11 1841 Paroxetine HCl 40 MG DAILY 05/12 1000 AC PO Paroxetine HCl 40 MG DAILY 05/10 1000 DC 05/11 PO 1159 Polyethylene Glycol 17 GM AT BEDTIME 05/11 2200 AC 05/11 PO 2329 Polyethylene Glycol 17 GM AT BEDTIME 05/10 2200 DC PO Pravastatin Sodium 10 MG DAILY 05/12 1000 AC PO Pravastatin Sodium 10 MG DAILY 05/10 1000 DC 05/11 PO 1159 Ramelteon 8 MG AT BEDTIME NEED.. 05/11 2130 AC PO Ramelteon 8 MG AT BEDTIME NEED.. 05/10 0100 DC 05/10 PO 0130 Senna/Docusate Sodium 2 TAB AT BEDTIME 05/11 2200 AC 05/11 PO 2329 Senna/Docusate Sodium 2 TAB AT BEDTIME 05/10 2200 DC PO Sodium Chloride 1,000 ML .[id number] 05/11 0800 DC 05/11 IV 05/11 2119 1200 Vancomycin HCl 1,500 MG Q24H 05/10 1600 DC 05/10 Sodium Chloride 250 ML IV 1740 Last 24 Hrs of Lab/Erik Results Last 24 Hrs of Labs/Mics: Laboratory Tests 05/12/17 0605: CBC w Diff Pending, WBC Pending, RBC Pending, Hgb Pending, Hct Pending, MCV Pending, MCH Pending, RDW Pending, Plt Count Pending, MPV Pending, PUBS MCHC Pending Microbiology 05/11 2045 URINE ROUT: Urine Culture - RECD 05/11 2030 EXTREMITIE: Gross Specimen Examination - RECD 05/11 2030 EXTREMITIE: Gram Stain - RECD Lines/Diet/Fluids Fluids/Infusions: none Bowers Still Needed? Yes Drains Still Needed? Yes Assessment/Plan Assessment: 80-year-old female was admitted for surgical wound infection in the setting of left femur Fx S/P IMN. She has PMH significant for stage II diastolic congestive heart failure on lasix, chronic atrial fibrillation who is on metoprolol and pradaxa s/p pacemaker placed in 2013, hypothyroidism, depression, COPD not on home oxygen, hypertension, hyperlipidemia, pulmonary hypertension with RVP Greater than 50. Pertinent Data WBC:12.0 H&H:9.4, 29.4 pre-op pelvic CT- IMPRESSION: Status post left hip replacement. Large subcutaneous fluid collection in the soft tissues lateral to the left hip. This could be aspirated percutaneously. 1. Left hip-surgical site infection POD#1 I&D * Bowers catheter pr surgery * OOb for ambulation * Monitor for fever, leukocytosis, worsening pain, surgical site drainage * Continue IV Ampicillin 2000 mg q6h- plan to D/C to complete 6 weeks of IV Abx therapy * resumed Pradaxa 150mg as per surgery recomendation * Plan to D/C to STR 2. Urinary tract infection: continue Ampicillin 3. Congestive heart failure * Lasix 40 mg daily * Chest x-ray -cardiomegaly, No pulmonary edema * continue home dose of Lasix * Strict I's and O's * Daily weights/ I/Os/ Salt restricted diet 4. Chronic atrial fibrillation s/p pacemaker * Pradaxa 150 mg resumed * Continue metoprolol 50 mg. 5. Hypertension * Continue losartan 25 mg 6. Hypothyroidism * Continue Synthyroid 0.17 mg 7. Depression * Continue paroxetine 40 mg daily 8. Hyperlipidemia * Continue statins * Cosidering her ABCVD score and multiple cardiac RF, I think patient needs high dose statins Full code reg diet DVT prophylaxis- Pradaxa 150mg pain pathway Problem List: 1. Infected wound 2. Intertrochanteric fracture of left hip 3. Atrial fibrillation Pain Ratin Pain Location: left hip Pain Goal: Pain 4 or less Pain Plan: morphine and po tynelol Tomorrow's Labs & Rationales: cbc Discharge Plan Discharge Disposition: STR/NH Stable for Discharge? Yes Discharge Disposition: STR/NH Stable for Discharge? Yes Full code reg diet DVT prophylaxis- hold Pradaxa pain pathway Problem List: 1. Infected wound 2. Intertrochanteric fracture of left hip 3. Atrial fibrillation Pain Goal: Pain 4 or less Pain Plan: morphine and po tynelol Tomorrow's Labs & Rationales: cbc
--- NOTE | 2017-05-12 11:14 | PN- Infect Dx ---
Subjective Subjective: Afebrile without complaints Objective Last 24 Hrs of Vital Signs/I&O Vital Signs Date Time Temp Pulse Resp B/P B/P Pulse O2 O2 Flow FiO2 Mean Ox Delivery Rate 05/12 1101 62 122/62 05/12 1100 62 122/62 05/12 0622 98.7 59 20 120/60 97 Nasal Cannula 05/12 0405 98.2 67 18 108/56 96 Nasal Cannula 05/12 0000 Nasal 2.0L Cannula 05/11 2330 97.6 61 14 114/58 96 Nasal 2.0L Cannula 05/11 1600 93 Nasal 2.0L Cannula 05/11 1401 98.9 80 18 142/80 95 Nasal 2.0L Cannula 05/11 1327 Nasal 2.5L Cannula 05/11 1259 Nasal 2.5L Cannula Intake & Output 05/12 1600 05/12 0800 05/12 0000 Intake Total 890 Output Total 285 Balance 605 Intake, IV 650 Intake, Oral 240 Output, 85 Drainage Output, Urine 200 Physical Exam Other Physical Findings: She appears comfortable in no acute distress Lungs are clear Heart regular rhythm with no murmur Extremities left hip dressing intact with drains in place; PICC in place in the right upper extremity Bowers catheter in place Results Last 24 Hours of Lab Results: Laboratory Tests 05/12 06 Hematology CBC w Diff MAN DIFF ORDERED WBC (4.8 - 10.8 /CUMM) 12.0 H RBC (4.20 - 5.40 /CUMM) 2.98 L Hgb (12.0 - 16.0 G/DL) 9.4 L Hct (37 - 47 %) 29.4 L MCV (81.0 - 99.0 FL) 98.5 MCH (27.0 - 31.0 PG) 31.5 H RDW (11.5 - 14.5 %) 17.1 H Plt Count (130 - 400 /CUMM) 290 MPV (7.4 - 10.4 FL) 8.3 Gran % (42.2 - 75.2 %) 85.4 H Lymphocytes % (20.5 - 51.1 %) 7.5 L Monocytes % (1.7 - 9.3 %) 6.5 Eosinophils % (0 - 5 %) 0.4 Basophils % (0.0 - 2.0 %) 0.2 Absolute Granulocytes (1.4 - 6.5 /CUMM) 10.2 H Absolute Lymphocytes (1.2 - 3.4 /CUMM) 0.9 L Absolute Monocytes (0.10 - 0.60 /CUMM) 0.8 H Absolute Eosinophils (0.0 - 0.7 /CUMM) 0 Absolute Basophils (0.0 - 0.2 /CUMM) 0 Platelet Estimate (ADEQUATE) VERIFIED BY SMEAR Polychromasia 1+ Anisocytosis 1+ Stomatocytes 1+ PUBS MCHC (33.0 - 37.0 G/DL) 32.0 L Last 24 Hours of Erik Results: OR culture left hip wound negative Urine culture May 11 negative Assessment/Plan Impression: Stable with temperatures remaining normal and white blood cell count minimally elevated on Ampicillin status post I&D yesterday of a left hip infection, which extended below the fascia, and which presumably involves the hardware, which was placed 6 weeks ago after an ORIF of a left comminuted femoral intertrochanteric subtrochanteric fracture. Her preliminary OR culture is negative, but the culture obtained from the aspiration of the soft tissue collection 2 days ago is positive for alpha strep and anaerobes. Removal of the hardware was not felt to be feasible but, it may be difficult to clear this infection without its removal , and it may be necessary to consider lifelong antibiotic suppression if the hardware is not removed. The positive urine culture for Proteus is noted and, with her history of dysuria, she is being treated for this as well with the Ampicillin. Suggestion: 1. Remove Bowers catheter 2. Follow-up OR culture 3. Continue Ampicillin
[2017-05-12 14:50] VITALS: BP 100/60
[2017-05-12 21:55] VITALS: BP 102/60
[2017-05-13 06:30] VITALS: BP 108/60
--- NOTE | 2017-05-13 07:42 | PN- Housestaff ---
Subjective Follow-up For: Surgical wound infection POD#2 UTI Complaints: no complaints Subjective: I have seen and examined the patient in the morning. She was lying comfortably in her bed. She had no overnight events. She complains of occasional pain pain which is controlled by medication. He had a bowel movement yesterday. She denies any shortness of breath, chest pain and palpitations. Review of Systems Constitutional: Reports: no symptoms. Denies: chills, diaphoresis, fever. EENTM: Reports: no symptoms. Cardiovascular: Reports: no symptoms. Denies: chest pain, palpitations. Respiratory: Reports: no symptoms. Denies: cough, short of breath, sputum production. Gastrointestinal: Reports: no symptoms. Denies: abdominal pain, constipation, distention, bowel incontinence, nausea, vomiting. Genitourinary: Reports: no symptoms. Musculoskeletal: Reports: no symptoms. Skin: Reports: no symptoms. Neurological/Psychological: Reports: no symptoms. Objective Last 24 Hrs of Vital Signs/I&O Vital Signs Date Time Temp Pulse Resp B/P B/P Pulse O2 O2 Flow FiO2 Mean Ox Delivery Rate 05/13 0630 97.9 57 18 108/60 91 Room Air / 0000 Nasal 1.0L Cannula 05/12 2155 97.6 64 20 102/60 97 Nasal Cannula 05/12 1600 Nasal 1.0L Cannula 05/12 1450 97.7 72 22 100/60 98 07/01 1101 62 122/62 07/01 1100 62 122/62 Intake & Output 07/ 1600 07/02 0800 07/02 0000 Intake Total 540 220 Output Total 235 410 Balance 305 -190 Intake, IV 300 20 Intake, Oral 240 200 Output, 35 60 Drainage Output, Urine 200 350 Physical Exam General Appearance: Alert, Oriented X3, Cooperative, No Acute Distress Skin: mild redness under breast both sides and lower abd line Skin Temp/Moisture Exam: Warm/Dry HEENT: Mucous Membr. moist/pink Neck: Supple Cardiovascular: Normal S1, Normal S2 Lungs: Clear to Auscultation Abdomen: Normal Bowel Sounds, Soft, No Tenderness Neurological: Normal Speech Extremities: she has 2 drains placed in left leg. Dressing is clean and dry. Bilateral calves soft, no redness, tender to palpation bilaterally, pt states it is her baseline pain and not worse. Breasts: Breast appear nl Current Medications: Current Medications Sig/Tena Start time Last Medication Dose Route Stop Time Status Admin Acetaminophen 650 MG .STK-MED ONE 05/12 2127 DC PO 05/12 2128 Acetaminophen 650 MG .STK-MED ONE 05/12 1311 DC PO 05/12 1312 Acetaminophen 650 MG Q6P PRN 05/11 2130 AC 05/12 PO 2128 Ampicillin 2,000 MG Q6 05/11 2359 AC 05/13 Sodium Chloride 100 ML IV 06 Dabigatran 150 MG BID 05/12 1000 AC 05/12 PO 210 Dextrose/Sodium 1,000 ML Q13H 05/11 2130 DC 05/12 Chloride IV 0009 Furosemide 40 MG DAILY 05/12 1000 AC 05/12 PO 1101 Guaifenesin 600 MG Q12 05/11 2200 AC 05/12 PO 210 Levothyroxine Sodium 0.175 MG DAILY AC 05/12 07 AC 05/13 PO 0602 Losartan Potassium 25 MG DAILY 05/12 1000 AC 05/12 PO 1101 Metoprolol Succinate 50 MG DAILY 05/12 1000 AC 05/12 PO 1100 Morphine Sulfate 2 MG ONCE ONE 05/12 2300 DC 05/12 IV 05/12 2301 2339 Morphine Sulfate 2 MG Q4P PRN 05/11 2130 AC 05/13 IV 0701 Oxycodone/ 1 TAB Q6P PRN 05/13 0830 AC Acetaminophen PO Oxycodone/ 1 TAB ONCE ONE 05/12 1430 DC 05/12 Acetaminophen PO 05/12 1431 1435 Paroxetine HCl 40 MG DAILY 05/12 1000 AC 05/12 PO 1101 Polyethylene Glycol 17 GM AT BEDTIME 05/11 2200 AC 05/12 PO 210 Potassium Chloride 20 MEQ BID 05/12 1536 DC 05/12 PO 05/12 220 210 Pravastatin Sodium 10 MG DAILY 05/12 1000 AC 05/12 PO 1100 Ramelteon 8 MG AT BEDTIME NEED.. 05/11 2130 AC PO Senna/Docusate Sodium 2 TAB AT BEDTIME 05/11 2200 AC 05/12 PO 210 Last 24 Hrs of Lab/Erik Results Last 24 Hrs of Labs/Mics: Laboratory Tests 05/13/17 06: Anion Gap 9, Estimated GFR > 60, BUN/Creatinine Ratio 18.3, CBC w Diff NO MAN DIFF REQ, RBC 3.31 L, MCV 98.7, MCH 31.2 H, RDW 17.1 H, MPV 8.1, Gran % 67.5, Lymphocytes % 16.9 L, Monocytes % 9.2, Eosinophils % 5.8 H, Basophils % 0.6, Absolute Granulocytes 6.7 H, Absolute Lymphocytes 1.7, Absolute Monocytes 0.9 H, Absolute Eosinophils 0.6, Absolute Basophils 0.1, PUBS MCHC 31.6 L Lines/Diet/Fluids Fluids/Infusions: none Catheters/Tubes: de luna De Luna Still Needed? Yes Drains Still Needed? Yes Assessment/Plan Assessment: 80-year-old female was admitted for surgical wound infection in the setting of left femur Fx S/P IM Nail (03/30/17). She has PMH significant for stage II diastolic congestive heart failure on lasix, chronic atrial fibrillation who is on metoprolol and pradaxa s/p pacemaker placed in 2013, hypothyroidism, depression, COPD not on home oxygen, hypertension, hyperlipidemia, pulmonary hypertension with RVP Greater than 50. Pertinent labs WBC:9.9 H&H:10.4, 32.7 pre-op pelvic CT- IMPRESSION: Status post left hip replacement. Large subcutaneous fluid collection in the soft tissues lateral to the left hip. This could be aspirated percutaneously. deep tissue from OR Culture from left upper extremity showed growth of staph aureus. # Left hip-surgical site infection POD#2 I&D * De Luna catheter pr surgery * 2 drains in left upper extremity (self suction). Drainage is serosanginous. Consider discontinuing the drains depending upon the output as per ortho reccs. * OOb for ambulation * Monitor for fever, leukocytosis, worsening pain, surgical site drainage * Deep tissue Culture grew staph aureus, Antibiotic changed to vancomycin 1250 MG IV * Pradaxa 150mg as per surgery recomendation * Continue to assess for calf swelling, none now, will obtain u/s to rule out dvt if changes * Plan to D/C to STR #Congestive heart failure * Lasix 40 mg daily * Chest x-ray -cardiomegaly, No pulmonary edema * continue home dose of Lasix * Strict I's and O's * Daily weights/ I/Os/ Salt restricted diet #Chronic atrial fibrillation s/p pacemaker * Pradaxa 150 mg resumed * Continue metoprolol 50 mg. # Hypertension * Continue losartan 25 mg # Hypothyroidism * Continue Synthyroid 0.17 mg #Depression * Continue paroxetine 40 mg daily #Hyperlipidemia * Continue statins * Cosidering her ABCVD score and multiple cardiac RF, I think patient needs high dose statins #Rash * under the breast and around bikini line * nystatin BID # Urinary tract infection * resolved (ampicillin 200mg iv q6 3days may 11 to may 13) Full code reg diet DVT prophylaxis- Pradaxa 150mg pain pathway Problem List: 1. Infected wound 2. Atrial fibrillation 3. Intertrochanteric fracture of left hip Pain Ratin Pain Location: left thigh and hip Pain Goal: Pain 4 or less Pain Plan: po tynelol percocid morphine Tomorrow's Labs & Rationales: cbc bmp
--- NOTE | 2017-05-13 08:46 | PN- Orthopedic ---
See Addendum Subjective Subjective: No acute overnight events reported. Patient c/o occasional pain but it is controlled with pain medications. She denies chest pain, shortness of breath and difficulty breathing. She denies nausea and vomitting. Objective Vital Signs and I&Os Vital Signs Date Time Temp Pulse Resp B/P B/P Pulse O2 O2 Flow FiO2 Mean Ox Delivery Rate 05/13 0630 97.9 57 18 108/60 91 Room Air 05/13 0000 Nasal 1.0L Cannula 05/12 2155 97.6 64 20 102/60 97 Nasal Cannula 05/12 1600 Nasal 1.0L Cannula 05/12 1450 97.7 72 22 100/60 98 05/12 1101 62 122/62 05/12 1100 62 122/62 Intake & Output 05/13 1600 05/13 0805/13 0000 05/12 1600 05/12 0800 05/12 0000 Intake Total 126 506 7711 890 Output Total 235 410 370 285 Balance 305 -190 1005 605 Intake, IV 300 20 175 650 Intake, Oral 307 876 9091 240 Number 1 Bowel Movements Output, 35 60 70 85 Drainage Output, Urine 200 350 300 200 Physical Exam: General: Alert and oriented x3, no acute distress Cardiac: RRR, s1s2 Pulm: CTA bilaterally Abdomen: Soft, non-tender, non-distended Extremities: Moves all extremities, distal sensation intact, skin warm and well perfused. Bilateral calves soft, no redness, tender to palpation bilaterally, pt states it is her baseline pain and not worse. Surgical site: Left thigh: Dressing saturated with serous drainage, clean dry dressing applied, no surrounding erythema, thigh compartment soft. Assessment/Plan Assessment/Plan This is a 81 year old female, POD 2, s/p washout for infected hip wound -Continue ID antibiotic recommendations, is on ampicillin now -NWB to lle -Continue to assess for calf swelling, none now, will obtain u/s to r/o dvt if changes -Continue diet as tolerated -Continue cecy drains to self suction, drainage continues to appear serosanginous, will consdider dc drains based on output -Will d/w Dr. Perez Core Measures/Miscellaneous Venous Thromboembolism VTE Risk Factors: Age > 40, Surgery VTE Contraindications: No Contraindications VTE Diagnosis: No VTE Type: NONE VTE Confirmed by (Test): NONE Beta Zhou Is Beta Zhou a Home Med? No Antibiotics Is Patient on Antibiotics? Yes If Yes: infection
[2017-05-13 09:24] LABS: ABSOLUTE BASOPHIL COUNT 0.1 /CUMM (0.0-0.2); ABSOLUTE EOSINOPHIL COUNT 0.6 /CUMM (0.0-0.7); ABSOLUTE GRANULOCYTE CT 6.7 /CUMM (1.4-6.5); ABSOLUTE LYMPH COUNT 1.7 /CUMM (1.2-3.4); ABSOLUTE MONOCYTE COUNT 0.9 /CUMM (0.10-0.60); BASOPHIL % 0.6 % (0.0-2.0); EOSINOPHIL % 5.8 % (0-5); GRANULOCYTE % 67.5 % (42.2-75.2); HEMATOCRIT 32.7 % (37-47); MEAN CORPUSCULAR HGB 31.2 PG (27.0-31.0); MEAN CORPUSCULAR HGB CONC 31.6 G/DL (33.0-37.0); MEAN CORPUSCULAR VOLUME 98.7 FL (81.0-99.0); MEAN PLATELET VOLUME 8.1 FL (7.4-10.4); PLATELET COUNT 360 /CUMM (130-400); RBC DISTRIBUTION WIDTH 17.1 % (11.5-14.5); RED BLOOD CELL CT 3.31 /CUMM (4.20-5.40); WHITE BLOOD CELL COUNT 9.9 /CUMM (4.8-10.8)
--- NOTE | 2017-05-13 12:06 | PN- Att Addend ---
Attending MD Review Statement Attending Statement Attending MD Statement: examined this patient, discuss w/resident/PA/STEAM PRESS TENDER, agreed w/resident/PA/STEAM PRESS TENDER, reviewed EMR data (avail), discussed w/nursing Attending Assessment/Plan: Laboratory Tests 05/13/17 0605: Anion Gap 9, Estimated GFR > 60, BUN/Creatinine Ratio 18.3, CBC w Diff NO MAN DIFF REQ, RBC 3.31 L, MCV 98.7, MCH 31.2 H, RDW 17.1 H, MPV 8.1, Gran % 67.5, Lymphocytes % 16.9 L, Monocytes % 9.2, Eosinophils % 5.8 H, Basophils % 0.6, Absolute Granulocytes 6.7 H, Absolute Lymphocytes 1.7, Absolute Monocytes 0.9 H, Absolute Eosinophils 0.6, Absolute Basophils 0.1, PUBS MCHC 31.6 L Vital Signs Date Time Temp Pulse Resp B/P B/P Pulse O2 O2 Flow FiO2 Mean Ox Delivery Rate 05/13 1147 64 116/70 05/13 1147 64 116/70 05/13 0630 97.9 57 18 108/60 91 Room Air 05/13 0000 Nasal 1.0L Cannula 05/12 2155 97.6 64 20 102/60 97 Nasal Cannula 05/12 1600 Nasal 1.0L Cannula 05/12 1450 97.7 72 22 100/60 98 Post surgical wound infection after left hip fracuture surgery on 03/30/17, s/p I & D on 05/11. On iv ampicillin. f/u on wound culutres- growing Staph aureus-abx switched to vancomycin on 05/13. UTI- proteus- got few days of ampicillin. asymptomatic currently. Afib - restarted on pradaxa Anemia- sec to blood loss, monitor closely. Hb better today on 05/13- 10.4 d/w pt the care plan. JEET drain- serosanginous drainage .
[2017-05-13 14:51] VITALS: BP 100/60
[2017-05-13 22:12] VITALS: BP 118/80
--- NOTE | 2017-05-13 23:41 | NUR ---
PATIENT ALERT AND ORIENTED X 3. JEET DRAIN # 1 DISCONTINUED BY PUMA ENCARNACION. DRESSING TO LEFT HIP INCISION REINFORCED X 2. PAIN MEDICATION GIVEN ORDERED. CALL LIGHT WITHIN REACH. WILL CONTINUE TO MONITOR.
[2017-05-14 06:45] VITALS: BP 120/76
--- NOTE | 2017-05-14 07:41 | PN- Student ---
Subjective Subjective: Patient is groggy this am. No acute events overnight, patient reports no pain, denies chest pain, SOB, n/v, dizziness and headaches. Objective Objective: Vital Signs Result Date Time Pulse Ox 94 05/14 645 B/P 120/76 05/14 645 O2 Delivery Nasal Cannula 05/14 645 O2 Flow Rate 2.0L 05/14 645 Temp 97.8 05/14 645 Pulse 74 05/14 0645 Resp 18 05/14 0645 Intake & Output 05/14 0000 05/13 1600 05/13 0800 Intake Total 480 1100 540 Output Total 790 365 235 Balance -310 735 305 Intake, IV 250 300 Intake, Oral 480 850 240 Output, 90 65 35 Drainage Output, Urine 700 300 200 General: awake, oriented, groggy Lungs: CTAB, no w/r/r Heart: S1 S2, RRR Abdomen: soft, non-tender, normoactive bowel sounds Extremities: gross motor/sensory function in tact, no edema/erythema, no calf tenderness bilaterally, distal pulses palpable 2+ Incision site: tender to palpation, dressing stained but not saturated, eri- incisional erythema JEET drain: distal drain with about 20cc serosanguanous fluid, proximal drain hole clean, no drainage Assessment/Plan Assessment: This is an 81 y/o female s/p left hip ORIF washout on 05/11 for wound sepsis. Wound is draining serosanguanous fluid from drain site and onto dressings. Pain adequately controlled but distillation operator to palpation. Plan: Diet: regular Pain: continue current pain regimen Abx: ampicillin and vancomycin for wound sepsis Dressing changed by myself this am keep JEET drain DVT and GI ppx OOB to chair Will discuss with attending
[2017-05-14 08:06] LABS: ABSOLUTE BASOPHIL COUNT 0 /CUMM (0.0-0.2); ABSOLUTE EOSINOPHIL COUNT 0.5 /CUMM (0.0-0.7); ABSOLUTE GRANULOCYTE CT 5.2 /CUMM (1.4-6.5); ABSOLUTE LYMPH COUNT 1.5 /CUMM (1.2-3.4); ABSOLUTE MONOCYTE COUNT 0.7 /CUMM (0.10-0.60); BASOPHIL % 0.6 % (0.0-2.0); EOSINOPHIL % 6.4 % (0-5); GRANULOCYTE % 65.3 % (42.2-75.2); HEMATOCRIT 30.1 % (37-47); MEAN CORPUSCULAR HGB 31.7 PG (27.0-31.0); MEAN CORPUSCULAR HGB CONC 32.4 G/DL (33.0-37.0); MEAN CORPUSCULAR VOLUME 97.8 FL (81.0-99.0); MEAN PLATELET VOLUME 7.8 FL (7.4-10.4); PLATELET COUNT 396 /CUMM (130-400); RED BLOOD CELL CT 3.07 /CUMM (4.20-5.40); WHITE BLOOD CELL COUNT 7.9 /CUMM (4.8-10.8)
--- NOTE | 2017-05-14 08:36 | PN- Housestaff ---
[place] 05/14/17 0836: Subjective Follow-up For: POD # 3Surgical site infection. Complaints: no complaints Subjective: I have Seen and examined the patient. She was resting comfortably in her bed on oxygen 1L NC. There were no acute overnight events. She denies any shortness of breath, palpitations and chest pain. Review of Systems Constitutional: Reports: no symptoms. EENTM: Reports: no symptoms. Cardiovascular: Denies: chest pain, palpitations, syncope. Respiratory: Denies: cough, hemoptysis, short of breath, sputum production, stridor. Gastrointestinal: Denies: abdominal pain, constipation, diarrhea, distention, vomiting. Genitourinary: Reports: no symptoms. Musculoskeletal: Reports: no symptoms. Skin: Reports: no symptoms. Objective Last 24 Hrs of Vital Signs/I&O Vital Signs Date Time Temp Pulse Resp B/P B/P Pulse O2 O2 Flow FiO2 Mean Ox Delivery Rate 05/14 0924 74 120/76 05/14 0923 74 120/76 05/14 0800 Nasal 1.0L Cannula 05/14 0645 97.8 74 18 120/76 94 Nasal 2.0L Cannula 05/14 0000 93 Nasal 1.0L Cannula 05/13 2212 97.6 74 20 118/80 93 Nasal 4.0L Cannula 05/13 1600 Nasal 1.0L Cannula 05/13 1451 98.3 68 20 100/60 95 07/02 1147 64 116/70 /02 1147 64 116/70 Intake & Output / 1600 05/14 0800 05/14 0000 Intake Total 120 480 Output Total 1000 790 Balance -880 -310 Intake, Oral 120 480 Output, 50 90 Drainage Output, Urine 950 700 Physical Exam General Appearance: Cooperative, No Acute Distress Skin: mild rash under breast both sides and lower abd line Skin Temp/Moisture Exam: Cool/Dry HEENT: Atraumatic Neck: Supple Cardiovascular: Normal S1, Normal S2 Lungs: Clear to Auscultation, Normal Air Movement Abdomen: Normal Bowel Sounds, Soft, No Tenderness Neurological: Normal Speech Extremities: has 1 drain placed in left thigh. Dressing is clean and dry. there is no erythema or induration Bilateral calves soft, no redness, tender to palpation bilaterally, pt states it is her baseline pain and not worse., right foot erythema over the right great toe and dorsum of the foot, mildly tender on palpation Current Medications: Current Medications Sig/Tena Start time Last Medication Dose Route Stop Time Status Admin Acetaminophen 650 MG .STK-MED ONE 05/13 2325 DC PO 05/13 2326 Acetaminophen 650 MG Q6P PRN 05/11 2130 AC 05/12 PO 212 Cefazolin Sodium 3,000 MG .STK-MED ONE 05/14 1111 DC IV 05/14 1112 Dabigatran 150 MG BID 05/12 1000 AC 05/14 PO 0924 Furosemide 40 MG DAILY 05/12 1000 AC 05/14 PO 0924 Guaifenesin 600 MG Q12 05/110 AC 05/14 PO 0924 Levothyroxine Sodium 0.175 MG DAILY AC 05/12 07 AC 05/14 PO 0603 Losartan Potassium 25 MG DAILY 05/12 1000 AC 05/14 PO 0924 Metoprolol Succinate 50 MG DAILY 05/14 1000 AC 05/14 PO 0923 Metoprolol Succinate 50 MG DAILY 05/12 1000 DC 05/13 PO 1147 Morphine Sulfate 1 MG ONCE ONE 05/13 2330 DC IV 05/13 233 Morphine Sulfate 2 MG Q4P PRN 05/11 2130 AC 05/14 IV 1058 Nystatin 1 MIRIAN BID PRN 05/13 0915 TOP Oxycodone/ 1 TAB Q6P PRN 05/13 830 AC 05/13 Acetaminophen PO 211 Paroxetine HCl 40 MG DAILY 05/12 1000 AC 05/14 PO 0923 Polyethylene Glycol 17 GM AT BEDTIME 05/11 2200 AC 05/13 PO 211 Pravastatin Sodium 10 MG DAILY 05/12 1000 AC 05/14 PO 0924 Ramelteon 8 MG AT BEDTIME NEED.. 05/11 2130 AC PO Senna/Docusate Sodium 2 TAB AT BEDTIME 05/11 2200 AC 05/13 PO 211 Vancomycin HCl 1,250 MG Q24 05/13 1000 AC 05/14 Sodium Chloride 250 ML IV 0924 Last 24 Hrs of Lab/Erik Results Last 24 Hrs of Labs/Mics: Laboratory Tests 05/14/17 0600: Anion Gap 8, Estimated GFR > 60, BUN/Creatinine Ratio 15.0, CBC w Diff NO MAN DIFF REQ, RBC 3.07 L, MCV 97.8, MCH 31.7 H, RDW 17.0 H, MPV 7.8, Gran % 65.3, Lymphocytes % 18.8 L, Monocytes % 8.9, Eosinophils % 6.4 H, Basophils % 0.6, Absolute Granulocytes 5.2, Absolute Lymphocytes 1.5, Absolute Monocytes 0.7 H, Absolute Eosinophils 0.5, Absolute Basophils 0, PUBS MCHC 32.4 L Lines/Diet/Fluids Catheters/Tubes: drain self suction left thigh Drains Still Needed? Yes Assessment/Plan Assessment: 80-year-old female was admitted for surgical wound infection in the setting of left femur Fx S/P IM Nail (03/30/17). She has PMH significant for stage II diastolic congestive heart failure on lasix, chronic atrial fibrillation who is on metoprolol and pradaxa s/p pacemaker placed in 2013, hypothyroidism, depression, COPD not on home oxygen, hypertension, hyperlipidemia, pulmonary hypertension with RVP Greater than 50. Pertinent labs WBC:7.9 H&H:9.7, 30.1 pre-op pelvic CT- IMPRESSION: Status post left hip replacement. Large subcutaneous fluid collection in the soft tissues lateral to the left hip. This could be aspirated percutaneously. Initial culture from the aspiration of the soft tissue collection by IR was positive for alpha strep Deep tissue from OR Culture from left upper extremity showed growth of staph aureus MRSA confirmed. # Left hip-surgical site infection POD#3 I&D * 1 drain in left upper extremity (self suction). Drainage is serosanginous. Consider discontinuing the drain depending upon the output as per ortho reccs. * OOb for ambulation * Monitor for fever, leukocytosis, worsening pain, surgical site drainage * Deep tissue Culture grew staph aureus MRSA CONFIRMED.Her initial culture from the aspiration of the soft tissue collection by IR was positive for alpha strep, which was not isolated from the OR culture. we are treating her for both pathogens as per id recomendation * Cefazolin 2 g IV Q8 started, vancomycin discontinued * Baseline ESR ordered * Pradaxa 150mg as per surgery recomendation * Continue to assess for calf swelling, none now, will obtain u/s to rule out dvt if changes * Plan to D/C to STR # Right foot pain Right foot is inflamed secondary to osteoarthritis versus gout. There is erythema over the right great toe and dorsum of the foot, mildly tender on palpation. * X-ray right foot ordered * pt already on pain regimen * uric acid level ordered #Congestive heart failure * Lasix 40 mg daily * Chest x-ray -cardiomegaly, No pulmonary edema * continue home dose of Lasix * Strict I's and O's * Daily weights/ I/Os/ Salt restricted diet #Chronic atrial fibrillation s/p pacemaker * Pradaxa 150 mg resumed * Continue metoprolol 50 mg. # Hypertension * Continue losartan 25 mg # Hypothyroidism * Continue Synthyroid 0.17 mg #Depression * Continue paroxetine 40 mg daily #Hyperlipidemia * Continue statins * Cosidering her ABCVD score and multiple cardiac RF, I think patient needs high dose statins #Rash * under the breast and around bikini line * nystatin BID # Urinary tract infection * resolved (ampicillin 200mg iv q6 3days may 11 to may 13) Full code reg diet DVT prophylaxis- Pradaxa 150mg pain pathway Problem List: 1. Atrial fibrillation 2. Intertrochanteric fracture of left hip 3. Infected wound 4. Hypothyroidism Pain Ratin Pain Location: left thigh Pain Goal: Pain 4 or less Pain Plan: po tynelol percocid morphine Tomorrow's Labs & Rationales: cbc esr DVT/Prophylaxis: Pradaxa 150mg [place] [facility] 05/14/17 1051: Attending MD Review Statement Attending Statement Attending MD Statement: examined this patient, discuss w/resident/PA/PUBLIC SPEAKING TEACHER, agreed w/resident/PA/PUBLIC SPEAKING TEACHER, reviewed EMR data (avail), discussed with nursing, discussed with case mgmt, reviewed images, amended to note Attending Assessment/Plan: Patient seen and examined, offers no complaints. She denies any aches or pains. The left hip surgical site as well as drain looks okay. There is no extension of any erythema. There is only one drain left at the site. Vital Signs Date Time Temp Pulse Resp B/P B/P Pulse O2 O2 Flow FiO2 Mean Ox Delivery Rate 05/14 0924 74 120/76 / 0923 74 120/76 05/14 0645 97.8 74 18 120/76 94 Nasal 2.0L Cannula 05/14 0000 93 Nasal 1.0L Cannula 05/13 2212 97.6 74 20 118/80 93 Nasal 4.0L Cannula 05/13 1600 Nasal 1.0L Cannula 05/13 1451 98.3 68 20 100/60 95 05/13 1147 64 116/70 05/13 1147 64 116/70 on exam; aox3, nad. cv; s1, s2, rrr resp; clear abd; soft, nt, bs+ ext; no edema. skin/ms: the surgical scar kendra looks better. there is one drain still in. It is non tender. Laboratory Tests 05/14 0600 Chemistry Sodium (137 - 145 mmol/L) 140 Potassium (3.5 - 5.1 mmol/L) 3.7 Chloride (98 - 107 mmol/L) 98 Carbon Dioxide (22 - 30 mmol/L) 34 H Anion Gap (5 - 16) 8 BUN (7 - 17 mg/dL) 9 Creatinine (0.5 - 1.0 mg/dL) 0.6 Estimated GFR (>60 ml/min) > 60 BUN/Creatinine Ratio (7 - 25 %) 15.0 Hematology CBC w Diff NO MAN DIFF REQ WBC (4.8 - 10.8 /CUMM) 7.9 RBC (4.20 - 5.40 /CUMM) 3.07 L Hgb (12.0 - 16.0 G/DL) 9.7 L Hct (37 - 47 %) 30.1 L MCV (81.0 - 99.0 FL) 97.8 MCH (27.0 - 31.0 PG) 31.7 H RDW (11.5 - 14.5 %) 17.0 H Plt Count (130 - 400 /CUMM) 396 MPV (7.4 - 10.4 FL) 7.8 Gran % (42.2 - 75.2 %) 65.3 Lymphocytes % (20.5 - 51.1 %) 18.8 L Monocytes % (1.7 - 9.3 %) 8.9 Eosinophils % (0 - 5 %) 6.4 H Basophils % (0.0 - 2.0 %) 0.6 Absolute Granulocytes (1.4 - 6.5 /CUMM) 5.2 Absolute Lymphocytes (1.2 - 3.4 /CUMM) 1.5 Absolute Monocytes (0.10 - 0.60 /CUMM) 0.7 H Absolute Eosinophils (0.0 - 0.7 /CUMM) 0.5 Absolute Basophils (0.0 - 0.2 /CUMM) 0 PUBS MCHC (33.0 - 37.0 G/DL) 32.4 L A/P; 81 y/o F with pmh sig for atrial fibrillation on paradaxa, sinus sick syndrome status post pacemaker, hypothyroidism, COPD not on home oxygen, pulmonary hypertension, recent left hip arthroplasty for intertrochanteric and subtrochanteric femur fracture in March 2017, admitted this time with surgical site wound infection, requiring drainage. Now has one drain left, was on Ampicillin. Growing stap aureus. Final sensivities pending but abx have bee switched to vanco. ID on board. Please check with infectious disease about the final antibiotics as well as the duration. Has a PICC line. Please check with orthopedic her long distance drain needs to stay in. Continue other current medications. Patient on pradaxa with history of atrial fibrillation. Noted that patient is on morphine for pain control. Ideally speaking we should be changing to oral pain regimen before her discharge for disposition planning. We will try to stick with Tylenol. If pain persists with Tylenol, will try giving low dose narcotic prn. Her allergy list includes codeine but reviewing her reconcilled meds, it seems like the patient has taken Percocet. That will need to be clarified. If there is no true allergy to Percocet than she can receive Percocet when necessary for pain control. But if she has a true allergy then low-dose tramadol can be used for pain control. DVT px; Pradaxa.
--- NOTE | 2017-05-14 11:11 | NUR ---
ATTEMPTED O2 TITRATION, PT O2 87% ON RA WHILE SITTING UP IN BED, 1L NC BACK ON AT THIS TIME.
--- NOTE | 2017-05-14 11:11 | NUR ---
PT C/O PAIN TO R FOOT, THIS RN NOTICED R TOP OF FOOT AND TOES SWOLLEN, AND RED, WARM TO TOUCH, MD SHIRLEY AWARE.
--- NOTE | 2017-05-14 11:30 | PN- Infect Dx ---
Subjective Subjective: Afebrile without complaints Objective Last 24 Hrs of Vital Signs/I&O Vital Signs Date Time Temp Pulse Resp B/P B/P Pulse O2 O2 Flow FiO2 Mean Ox Delivery Rate 05/14 924 74 120/76 05/14 09 74 120/76 05/14 0800 Nasal 1.0L Cannula 05/14 0645 97.8 74 18 120/76 94 Nasal 2.0L Cannula 05/14 0000 93 Nasal 1.0L Cannula 05/13 2212 97.6 74 20 118/80 93 Nasal 4.0L Cannula 05/13 1600 Nasal 1.0L Cannula 05/13 1451 98.3 68 20 100/60 95 05/13 1147 64 116/70 05/13 1147 64 116/70 Intake & Output 05/14 1600 05/14 0805/14 0000 Intake Total 120 480 Output Total 1000 790 Balance -880 -310 Intake, Oral 120 480 Output, 50 90 Drainage Output, Urine 950 700 Physical Exam Other Physical Findings: She appears comfortable in no acute distress Lungs are clear Heart regular rhythm with no murmur Extremities left hip incision clean, with no erythema; drain remains in place; right foot erythema over the right great toe and dorsum of the foot, mildly tender on palpation Results Last 24 Hours of Lab Results: Laboratory Tests 05/14 600 Chemistry Sodium (137 - 145 mmol/L) 140 Potassium (3.5 - 5.1 mmol/L) 3.7 Chloride (98 - 107 mmol/L) 98 Carbon Dioxide (22 - 30 mmol/L) 34 H Anion Gap (5 - 16) 8 BUN (7 - 17 mg/dL) 9 Creatinine (0.5 - 1.0 mg/dL) 0.6 Estimated GFR (>60 ml/min) > 60 BUN/Creatinine Ratio (7 - 25 %) 15.0 Hematology CBC w Diff NO MAN DIFF REQ WBC (4.8 - 10.8 /CUMM) 7.9 RBC (4.20 - 5.40 /CUMM) 3.07 L Hgb (12.0 - 16.0 G/DL) 9.7 L Hct (37 - 47 %) 30.1 L MCV (81.0 - 99.0 FL) 97.8 MCH (27.0 - 31.0 PG) 31.7 H RDW (11.5 - 14.5 %) 17.0 H Plt Count (130 - 400 /CUMM) 396 MPV (7.4 - 10.4 FL) 7.8 Gran % (42.2 - 75.2 %) 65.3 Lymphocytes % (20.5 - 51.1 %) 18.8 L Monocytes % (1.7 - 9.3 %) 8.9 Eosinophils % (0 - 5 %) 6.4 H Basophils % (0.0 - 2.0 %) 0.6 Absolute Granulocytes (1.4 - 6.5 /CUMM) 5.2 Absolute Lymphocytes (1.2 - 3.4 /CUMM) 1.5 Absolute Monocytes (0.10 - 0.60 /CUMM) 0.7 H Absolute Eosinophils (0.0 - 0.7 /CUMM) 0.5 Absolute Basophils (0.0 - 0.2 /CUMM) 0 PUBS MCHC (33.0 - 37.0 G/DL) 32.4 L Last 24 Hours of Erik Results: OR culture May 11 left hip wound positive for Staph aureus sensitive to Oxacillin Urine culture May 11 negative Assessment/Plan Impression: Stable with temperatures remaining normal and white blood cell count also normal on Vancomycin, begun yesterday because of the isolation of Staph aureus (now proven to be MSSA) from the OR culture status post I&D 3 days ago of a left hip infection, which extended below the fascia, and which presumably involves the hardware, which was placed 6 weeks ago for a left comminuted femoral intertrochanteric/subtrochanteric fracture. Of interest her initial culture from the aspiration of the soft tissue collection by IR was positive for alpha strep, which was not isolated from the OR culture; nevertheless both of these pathogens will need to be treated. Removal of the hardware was not felt to be feasible, but it may be difficult to clear this infection without its removal, and it may be necessary to consider lifelong antibiotic suppression if the hardware is not removed. Her right foot inflammation is of unclear etiology, possibly secondary to a flareup of her osteoarthritis or perhaps gout. She has received 3 days of treatment for the positive urine culture for Proteus which should be adequate treatment for a lower urinary tract infection. Suggestion: 1. Check uric acid 2. X-ray of the right foot 3. Check a baseline ESR 4. Discontinue Vancomycin 5. Begin Cefazolin 2 g IV every 8 hours
--- NOTE | 2017-05-14 12:12 | NUR ---
ATTEMPTED TO TITRATE PT OFF 02, O2 # 95% ON RA, PT NO LONGER REQUIRES O2 AT THIS TIME, NOTIFIED.
--- NOTE | 2017-05-14 13:25 | PN- Orthopedic ---
Surgical Brief Attending Note Brief Attending Note: Patient seen and examined. Doing well, denies pain. Was out of bed and stood on her right leg yesterday. One drain removed, the other remains. Says her grandchildren and great grandchildren came to visit yesterday. Exam: LLE Incision clean and dry with minimal drainage on dressing. One drain removed yesterday; one remains with serosanguinous output. No tenderness to palpation of left thigh. Knee flexion to 70 deg with pain Intact DF/PF SILT BLE Drain output: Cultures: deep cultures MSSA, IR aspiration alpha strep A/P: 81yo F POD#3 I&D of left hip infection s/p IM nail placement 03/30/17. Started on cefazolin per ID recommendations. WBC count normalized, afebrile. 1. TTWB LLE; out of bed to chair with PT 2. Pain control 3. D/C drain tomorrow 4. Monitor wound, dressing change daily 5. Cefazolin per ID recommendations for MSSA and alpha strep 6. Resume Pradaxa 7. Dispo pending Plan for follow up with Dr. Mayorga in clinic 7 days following discharge. Please call the clinic at [phone] to schedule an appointment.
[2017-05-14 14:07] VITALS: BP 100/60
--- NOTE | 2017-05-14 16:18 | RADIOLOGY REPORT ---
EXAMINATION: XR FOOT, RIGHT CLINICAL INFORMATION: Right foot pain. History of gout. Evaluate for crystal induced arthropathy. COMPARISON: 06/16/2009 TECHNIQUE: Right foot, 3 views FINDINGS: Bone density is diffusely decreased. Chronic pes planus and hindfoot valgus deformity. 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 Subtalar joint is poorly evaluated due to the foot deformity. Bones have normal alignment at the Lisfranc joint. Surgical changes from remote bunionectomy of the great toe with 17 degrees of metatarsus primus varus and 27 degrees of hallux valgus. Nonuniform joint space narrowing and osteophyte formation of the great toe metatarsophalangeal joint. No soft tissue tophaceous deposits. Chronic osteoarthritis of interphalangeal joints. No bare area erosions or periostitis. IMPRESSION: 1. No radiographic evidence of gouty arthritis. 2. Chronic pes planus and hindfoot valgus deformity. 3. Metatarsus primus varus and hallux valgus, status post great toe bunionectomy. 4. Other findings include chronic osteoarthritis of the talonavicular, calcaneocuboid and first metatarsophalangeal joints.
[2017-05-14 22:06] VITALS: BP 110/78
[2017-05-15 06:47] VITALS: BP 108/78
--- NOTE | 2017-05-15 07:42 | PN- Housestaff ---
Subjective Follow-up For: POD # 4 Surgical site infection. Complaints: no complaints Subjective: I have Seen and examined the patient. She was resting comfortably in her bed on oxygen 1L NC. There were no acute overnight events. She denies any shortness of breath, palpitations and chest palpitations.She compalins of loose stool Review of Systems Constitutional: Reports: no symptoms. EENTM: Reports: no symptoms. Cardiovascular: Denies: chest pain, palpitations. Respiratory: Reports: no symptoms. Denies: cough, short of breath. Gastrointestinal: Reports: diarrhea. Genitourinary: Reports: no symptoms. Objective Last 24 Hrs of Vital Signs/I&O Vital Signs Date Time Temp Pulse Resp B/P B/P Pulse O2 O2 Flow FiO2 Mean Ox Delivery Rate 05/15 1415 98.3 62 18 124/70 96 Nasal 1.0L Cannula 05/15 0905 62 108/70 05/15 0905 62 108/70 05/15 0800 Nasal 1.0L Cannula 05/15 0647 97.9 61 20 108/78 94 Nasal 1.0L Cannula 05/15 0000 91 Nasal 1.0L Cannula 05/14 2206 97.7 55 18 110/78 94 Nasal 1.0L Cannula Intake & Output 05/15 1600 /04 0800 / 0000 Intake Total 340 390 Output Total 80 260 Balance 260 130 Intake, IV 100 150 Intake, Oral 240 240 Number 3 2 Bowel Movements Output, 80 60 Drainage Output, Urine 200 Physical Exam General Appearance: Alert, Oriented X3, Cooperative, No Acute Distress Skin: mild rash under breast both sides and lower abd line HEENT: Atraumatic Cardiovascular: Normal S1, Normal S2, No Murmurs Lungs: Clear to Auscultation, Normal Air Movement Abdomen: Normal Bowel Sounds, Soft, No Tenderness Neurological: Normal Speech Extremities: drain has been removed from left thigh. Dressing is clean and dry. there is no erythema or induration Bilateral calves soft, no redness, tender to palpation bilaterally, pt states it is her baseline pain and not worse., right foot erythema over the right great toe and dorsum of the foot, mildly tender on palpation Current Medications: Current Medications Sig/Tena Start time Last Medication Dose Route Stop Time Status Admin Acetaminophen 650 MG Q6P PRN 05/11 2130 AC 05/12 PO 8 Cefazolin Sodium 2 GM IQ8 05/14 1600 AC 05/15 N/A 1 UNIT IV 0904 Dabigatran 150 MG BID 05/12 1000 AC 05/15 PO 09 Furosemide 40 MG DAILY 05/12 1000 AC 05/15 PO 09 Guaifenesin 600 MG Q12 05/11 2200 AC 05/15 PO 09 Lactobacillus 1 CAP BID 05/15 1229 AC Acidophilus PO Levothyroxine Sodium 0.175 MG DAILY AC 05/12 0700 AC 05/15 PO 0542 Losartan Potassium 25 MG DAILY 05/12 1000 AC 05/15 PO 0905 Metoprolol Succinate 50 MG DAILY 05/14 1000 AC 05/15 PO 09 Morphine Sulfate 2 MG Q4P PRN 05/11 2130 AC 05/14 IV 1058 Nystatin 1 MIRIAN BID PRN 05/13 0915 AC TOP Oxycodone/ 1 TAB Q6P PRN 05/13 0830 AC 05/15 Acetaminophen PO 0128 Paroxetine HCl 40 MG DAILY 05/12 1000 AC 05/15 PO 09 Polyethylene Glycol 17 GM AT BEDTIME 05/11 2200 AC 05/14 PO 2052 Potassium Chloride 20 MEQ BID 05/14 220 AC 05/15 PO 09 Pravastatin Sodium 10 MG DAILY 05/12 1000 AC 05/15 PO 09 Ramelteon 8 MG AT BEDTIME NEED.. 05/11 2130 AC 05/14 PO 2053 Senna/Docusate Sodium 2 TAB AT BEDTIME 05/11 2200 AC 05/14 PO 2052 Last 24 Hrs of Lab/Erik Results Last 24 Hrs of Labs/Mics: Laboratory Tests 05/15/17 0540: CBC w Diff NO MAN DIFF REQ, RBC 3.27 L, MCV 97.6, MCH 31.3 H, RDW 17.1 H, MPV 7.8, Gran % 66.7, Lymphocytes % 18.9 L, Monocytes % 8.9, Eosinophils % 5.1 H, Basophils % 0.4, Absolute Granulocytes 6.1, Absolute Lymphocytes 1.7, Absolute Monocytes 0.8 H, Absolute Eosinophils 0.5, Absolute Basophils 0, PUBS MCHC 32.0 L, ESR Westergren 35 H Microbiology 05/15 1229 STOOL: Clostridium difficile Toxin A & B - ORD Assessment/Plan Assessment: 80-year-old female was admitted for surgical wound infection in the setting of left femur Fx S/P IM Nail (03/30/17). She has PMH significant for stage II diastolic congestive heart failure on lasix, chronic atrial fibrillation who is on metoprolol and pradaxa s/p pacemaker placed in 2013, hypothyroidism, depression, COPD not on home oxygen, hypertension, hyperlipidemia, pulmonary hypertension with RVP Greater than 50. --Pertinent labs today WBC:9.1 H&H:10.2, 30.9 --pre-op pelvic CT- IMPRESSION: Status post left hip replacement. Large subcutaneous fluid collection in the soft tissues lateral to the left hip. This could be aspirated percutaneously. --Initial culture from the aspiration of the soft tissue collection by IR was positive for alpha strep Deep tissue from OR Culture from left upper extremity showed growth of staph aureus MRSA confirmed. # Left hip-surgical site infection POD#4 I&D * Drain has been removed by PA * OOb for ambulation * Monitor for fever, leukocytosis, worsening pain, surgical site drainage * Deep tissue Culture grew staph aureus MRSA CONFIRMED.Her initial culture from the aspiration of the soft tissue collection by IR was positive for alpha strep, which was not isolated from the OR culture. we are treating her for both pathogens as per id recomendation * Cefazolin 2 g IV Q8 day 2, vancomycin discontinued * Baseline ESR 35 * Pradaxa 150mg as per surgery recomendation * Continue to assess for calf swelling, none now, will obtain u/s to rule out dvt if changes * Plan to D/C to STR # Right foot pain Right foot is inflamed secondary to osteoarthritis versus gout. There is erythema over the right great toe and dorsum of the foot, mildly tender on palpation. * X-ray right foot showed no evidence of gouty arthritis. changes were consistent with chronic osteo arthritis * pt already on pain regimen * uric acid level normal 5.7 #Congestive heart failure * Lasix 40 mg daily * Chest x-ray -cardiomegaly, No pulmonary edema * continue home dose of Lasix * Strict I's and O's * Daily weights/ I/Os/ Salt restricted diet #Chronic atrial fibrillation s/p pacemaker * Pradaxa 150 mg resumed * Continue metoprolol 50 mg. # Hypertension * Continue losartan 25 mg # Hypothyroidism * Continue Synthyroid 0.17 mg #Depression * Continue paroxetine 40 mg daily #Hyperlipidemia * Continue statins * Cosidering her ABCVD score and multiple cardiac RF, I think patient needs high dose statins #Rash * under the breast and around bikini line * nystatin BID # Urinary tract infection * resolved (ampicillin 200mg iv q6 3days may 11 to may 13) Full code reg diet DVT prophylaxis- Pradaxa 150mg pain pathway Problem List: 1. Arthritis 2. DVT prophylaxis 3. Cellulitis Pain Ratin Pain Location: left thigh Pain Goal: Pain 4 or less Pain Plan: po tynelol percocid morphine Tomorrow's Labs & Rationales: CBC DVT/Prophylaxis: PRADAXA 150MG
[2017-05-15 08:06] LABS: ABSOLUTE BASOPHIL COUNT 0 /CUMM (0.0-0.2); ABSOLUTE EOSINOPHIL COUNT 0.5 /CUMM (0.0-0.7); ABSOLUTE GRANULOCYTE CT 6.1 /CUMM (1.4-6.5); ABSOLUTE LYMPH COUNT 1.7 /CUMM (1.2-3.4); ABSOLUTE MONOCYTE COUNT 0.8 /CUMM (0.10-0.60); BASOPHIL % 0.4 % (0.0-2.0); EOSINOPHIL % 5.1 % (0-5); GRANULOCYTE % 66.7 % (42.2-75.2); HEMATOCRIT 31.9 % (37-47); MEAN CORPUSCULAR HGB 31.3 PG (27.0-31.0); MEAN CORPUSCULAR VOLUME 97.6 FL (81.0-99.0); MEAN PLATELET VOLUME 7.8 FL (7.4-10.4); PLATELET COUNT 381 /CUMM (130-400); RBC DISTRIBUTION WIDTH 17.1 % (11.5-14.5); RED BLOOD CELL CT 3.27 /CUMM (4.20-5.40); WHITE BLOOD CELL COUNT 9.1 /CUMM (4.8-10.8)
--- NOTE | 2017-05-15 08:34 | Patient Discharge Instructions ---
Discharge Instructions General Discharge Information You had these procedures: Washout of left hip wound. Watch for these problems: Increased redness or drainage of wound Do not soak the wound: Yes No bath, but you may shower: Yes Other wound care: Keep incision clean and dry. Daily dry dressing change. Special Instructions: 1. Plan for follow up with Dr. Mayorga in clinic 7 days following discharge. Please call the clinic at [phone] to schedule an appointment. 2. Pt requires 1L o2 over night at times after surgery. Goal sat is >92%. Can con't 1L o2 if necessary. Encourage IS and follow up with enterprise project manager. 3. Continue Cefazolin to complete a six-week course of IV antibiotics (until June 24), after which she will likely require lifelong suppression with an oral antibiotic, such as Keflex. 4. Weekly ESR while on IV antibiotics Activity Activity Self Limited: Yes Other activity limits: Toe touch weight bear Acute Coronary Syndrome Inclusion Criteria At DC or during hospital stay patient has or had the following: Discharge Core Measures Meds if any: Prescribed or Continued at Discharge Meds if any: NOT Prescribed or Continued at Discharge Congestive Heart Failure Inclusion Criteria At DC or during hospital stay patient has or had the following: Discharge Core Measures Meds if any: Prescribed or Continued at Discharge Meds if any: NOT Prescribed or Continued at Discharge Cerebrovascular accident Inclusion Criteria At DC or during hospital stay patient has or had the following: CVA/TIA Diagnosis No Discharge Core Measures Meds if any: Prescribed or Continued at Discharge Meds if any: NOT Prescribed or Continued at Discharge Venous thromboembolism Discharge Core Measures - Per Current guidelines, there needs to be overlap - treatment for the first 5 days of Warfarin therapy. - If discharged on Warfarin prior to 5 days of - overlap therapy, the patient will need to be - assessed for post discharge needs including - *Post discharge parental anticoagulation - *Warfarin and/or parental anticoagulation education - *Follow up date to check INR post discharge Meds if any: Prescribed or Continued at Discharge Note: Overlap Therapy is Warfarin and Anticoagulant Meds if any: NOT Prescribed or Continued at Discharge
--- NOTE | 2017-05-15 08:56 | PN- Orthopedic ---
See Addendum Subjective Subjective: Awake, alert No complaints overnight Worked with PT in bed today - she is an assist of three and is unable to ambulated independently Pain is well controlled Objective Vital Signs and I&Os Vital Signs Date Time Temp Pulse Resp B/P B/P Pulse O2 O2 Flow FiO2 Mean Ox Delivery Rate 05/15 0647 97.9 61 20 108/78 94 Nasal 1.0L Cannula 05/15 0000 91 Nasal 1.0L Cannula 05/14 2206 97.7 55 18 110/78 94 Nasal 1.0L Cannula 05/14 1407 98.4 61 20 100/60 90 Room Air 05/14 1109 Nasal 2.5L Cannula 05/14 0924 74 120/76 05/14 0923 74 120/76 Intake & Output 05/15 1600 05/15 0800 05/15 0000 05/14 1600 05/14 0800 05/14 0000 Intake Total 340 390 730 120 480 Output Total 80 260 1000 790 Balance 260 130 730 -880 -310 Intake, IV 100 150 250 Intake, Oral 240 240 480 120 480 Number 2 0 Bowel Movements Output, 80 60 50 90 Drainage Output, Urine 200 950 700 Physical Exam: General: alert and oriented times three Ext: warm, trace edema LLE Wound: dressing changed, dry although reported oozing serous fluid requirinig dressing changes Sutures intact JEET drain removed - serous drainage noted No erythema Assessment/Plan Assessment/Plan A/P: 81yo F POD#4 I&D of left hip infection s/p IM nail placement 03/30/17. Started on cefazolin last evening per ID recommendations 1. TTWB LLE; out of bed to chair with PT - today she had PT in bed - she is an assist of three as she was at last admission - ambulating will be a long process 2. Pain management 3. drain removed per Dr Perez recommendations 4. Monitor wound, dry dressing change daily 5. Abx per ID 6. Continue Pradaxa 7. DC planning per primary team 8. FU with Dr Mayorga one week after discharge Core Measures/Miscellaneous Venous Thromboembolism VTE Risk Factors: Age > 40, Surgery VTE Contraindications: No Contraindications VTE Diagnosis: No VTE Type: NONE VTE Confirmed by (Test): NONE Beta Zhou Is Beta Zhou a Home Med? No Antibiotics Is Patient on Antibiotics? Yes If Yes: infection
[2017-05-15 14:15] VITALS: BP 124/70
--- NOTE | 2017-05-15 14:28 | PN- Att Addend ---
Attending MD Review Statement Attending Statement Attending MD Statement: examined this patient, discuss w/resident/PA/BLOW MOLDING MACHINE TENDER, agreed w/resident/PA/BLOW MOLDING MACHINE TENDER, discussed with family, reviewed EMR data (avail), discussed w/ nursing Attending Assessment/Plan: Diarrhea- sent stool for c diff, started on lactobacillus. will f/u on the c diff. d/w pt the care plan. Cont on cefazolin for surgical site infection . JEET drain removed.
[2017-05-15 22:20] VITALS: BP 136/80
[2017-05-16 05:43] LABS: ABSOLUTE BASOPHIL COUNT 0.1 /CUMM (0.0-0.2); ABSOLUTE EOSINOPHIL COUNT 0.4 /CUMM (0.0-0.7); ABSOLUTE GRANULOCYTE CT 6.8 /CUMM (1.4-6.5); ABSOLUTE LYMPH COUNT 1.3 /CUMM (1.2-3.4); ABSOLUTE MONOCYTE COUNT 0.6 /CUMM (0.10-0.60); BASOPHIL % 0.6 % (0.0-2.0); EOSINOPHIL % 3.9 % (0-5); GRANULOCYTE % 74.8 % (42.2-75.2); HEMATOCRIT 31.7 % (37-47); MEAN CORPUSCULAR HGB 30.9 PG (27.0-31.0); MEAN CORPUSCULAR HGB CONC 31.9 G/DL (33.0-37.0); MEAN CORPUSCULAR VOLUME 97.1 FL (81.0-99.0); MEAN PLATELET VOLUME 7.5 FL (7.4-10.4); PLATELET COUNT 378 /CUMM (130-400); RBC DISTRIBUTION WIDTH 16.8 % (11.5-14.5); RED BLOOD CELL CT 3.27 /CUMM (4.20-5.40); WHITE BLOOD CELL COUNT 9.1 /CUMM (4.8-10.8)
[2017-05-16 06:12] VITALS: BP 140/72
--- NOTE | 2017-05-16 08:07 | PN- Orthopedic ---
See Addendum Subjective Subjective: no extremity pain. limited oob. c/o "feeling gassy", + bm, +flatus, no n/v, óscar diet Objective Vital Signs and I&Os Vital Signs Date Time Temp Pulse Resp B/P B/P Pulse O2 O2 Flow FiO2 Mean Ox Delivery Rate 05/16 612 98.0 60 20 140/72 96 Nasal 1.0L Cannula 05/15 2220 98.1 62 20 136/80 98 05/15 1600 Nasal 1.0L Cannula 05/15 1415 98.3 62 18 124/70 96 Nasal 1.0L Cannula 05/15 0905 62 108/70 05/15 0905 62 108/70 Intake & Output 05/16 0800 05/16 0000 05/15 1600 05/15 0800 05/15 0000 Intake Total 390 580 500 340 390 Output Total 80 260 Balance 390 580 500 260 130 Intake, IV 150 100 50 100 150 Intake, Oral 240 480 450 240 240 Number 3 2 Bowel Movements Output, 80 60 Drainage Output, Urine 200 Physical Exam: GEN: NAD CARD: s1s2 RRR PULM: decreased at bases ABD: obese soft nt EXT: Left hip wound- dressing with serous drainage, changed. former JEET drain site clean with serous drainage, incision with surrounding edema, no erythema, + serous drainge, no foul smell, no purulence, sutures intact. BL feet warm, gross sensate/motor intact LE Current Medications: Current Medications Sig/Tena Start time Last Medication Dose Route Stop Time Status Admin Acetaminophen 650 MG Q6P PRN 05/11 2130 AC 05/12 PO 2127 Cefazolin Sodium 2 GM IQ8 05/14 1600 AC 05/16 N/A 1 UNIT IV 0022 Dabigatran 150 MG BID 05/12 1000 AC 05/15 PO 2111 Furosemide 40 MG DAILY 05/12 1000 AC 05/15 PO 09 Guaifenesin 600 MG Q12 05/11 2200 AC 05/15 PO 2111 Lactobacillus 1 CAP BID 05/15 1229 AC 05/15 Acidophilus PO 2111 Levothyroxine Sodium 0.175 MG DAILY AC 05/12 0700 AC 05/16 PO 05 Losartan Potassium 25 MG DAILY 05/12 1000 AC 05/15 PO 09 Metoprolol Succinate 50 MG DAILY 05/14 1000 AC 05/15 PO 0905 Morphine Sulfate 2 MG Q4P PRN 05/11 2130 AC 05/14 IV 1058 Nystatin 1 MIRIAN BID PRN 05/13 0915 AC TOP Oxycodone/ 1 TAB Q6P PRN 05/13 0830 AC 05/16 Acetaminophen PO 0149 Paroxetine HCl 40 MG DAILY 05/12 1000 AC 05/15 PO 09 Polyethylene Glycol 17 GM AT BEDTIME 05/11 2200 AC 05/14 PO 2052 Potassium Chloride 20 MEQ BID 05/14 2200 AC 05/15 PO 2111 Pravastatin Sodium 10 MG DAILY 05/12 1000 AC 05/15 PO 904 Ramelteon 8 MG AT BEDTIME NEED.. 05/11 2130 AC 05/14 PO 2053 Senna/Docusate Sodium 2 TAB AT BEDTIME 05/11 2200 AC 05/14 PO 2052 Results Last 48 Hours of Labs: Laboratory Tests 05/16 05/15 0530 0540 Hematology CBC w Diff NO MAN DIFF REQ NO MAN DIFF REQ WBC (4.8 - 10.8 /CUMM) 9.1 9.1 RBC (4.20 - 5.40 /CUMM) 3.27 L 3.27 L Hgb (12.0 - 16.0 G/DL) 10.1 L 10.2 L Hct (37 - 47 %) 31.7 L 31.9 L MCV (81.0 - 99.0 FL) 97.1 97.6 MCH (27.0 - 31.0 PG) 30.9 31.3 H RDW (11.5 - 14.5 %) 16.8 H 17.1 H Plt Count (130 - 400 /CUMM) 378 381 MPV (7.4 - 10.4 FL) 7.5 7.8 Gran % (42.2 - 75.2 %) 74.8 66.7 Lymphocytes % (20.5 - 51.1 %) 14.3 L 18.9 L Monocytes % (1.7 - 9.3 %) 6.4 8.9 Eosinophils % (0 - 5 %) 3.9 5.1 H Basophils % (0.0 - 2.0 %) 0.6 0.4 Absolute Granulocytes (1.4 - 6.5 /CUMM) 6.8 H 6.1 Absolute Lymphocytes (1.2 - 3.4 /CUMM) 1.3 1.7 Absolute Monocytes (0.10 - 0.60 /CUMM) 0.6 0.8 H Absolute Eosinophils (0.0 - 0.7 /CUMM) 0.4 0.5 Absolute Basophils (0.0 - 0.2 /CUMM) 0.1 0 PUBS MCHC (33.0 - 37.0 G/DL) 31.9 L 32.0 L ESR Westergren (0 - 20 MM) 35 H Assessment/Plan Assessment/Plan A: POD5 sp washout L hip (IM nail 03/30/17), limited OOB, on abx per ID with stable WBC. P: OOB- TTWB, PT dry dressing change daily, monitor wound for signs of infection ABX per ID Pradaxa FU with Dr. Mayorga 1wk following hospital DC Care per primary team
--- NOTE | 2017-05-16 10:00 | NUR ---
PT AMBULATED TO CHAIR, AND C/O OF NAUSEA AND CHEST PRESSURE, W/ INABILITY TO CATCH HER BREATH, O2 @ 93% 1L NC , BP STABLE AT 128/84. MD MUNOZ NOTIFIED, TROP SENT, EKG OBTAINED, CHEST XRAY ORDERED, PT MOVED BACK TO BED. CALL MEHTA WITHIN REACH, WILL CONTINUE TO MONITOR.
--- NOTE | 2017-05-16 11:04 | PN- Housestaff ---
[place] DE JESUS,[facility] 05/16/17 1103: Subjective Follow-up For: POD # 5Surgical site infection Complaints: no complaints Subjective: I have seen and examined the pt. She was sleeping comfortably in her bed. I woke her up she was altert and co operative. she has no current complains. She denies any sob, chest pain and palpitations. She has pain at her surgical site but states it is well controlled by pain meds. Review of Systems Constitutional: Reports: no symptoms. Cardiovascular: Denies: chest pain, edema, orthopena. Respiratory: Denies: cough, orthopnea, short of breath. Gastrointestinal: Denies: abdominal pain, diarrhea, bowel incontinence, melena. Genitourinary: Reports: no symptoms. Objective Last 24 Hrs of Vital Signs/I&O Vital Signs Date Time Temp Pulse Resp B/P B/P Pulse O2 O2 Flow FiO2 Mean Ox Delivery Rate 05/16 1502 97.8 68 18 120/70 96 05/16 0852 60 140/72 05/16 0851 60 140/72 05/16 0800 Nasal 1.0L Cannula 05/16 0612 98.0 60 20 140/72 96 Nasal 1.0L Cannula 05/15 2220 98.1 62 20 136/80 98 Intake & Output 05/16 1600 05/16 0800 05/16 0000 Intake Total 460 390 580 Output Total Balance 460 390 580 Intake, IV 100 150 100 Intake, Oral 360 240 480 Number 0 Bowel Movements Physical Exam General Appearance: Alert, Oriented X3, Cooperative, No Acute Distress Skin: mild rash under breast both sides and lower abd line Skin Temp/Moisture Exam: Warm/Dry Cardiovascular: Normal S1, Normal S2, No Murmurs Lungs: Clear to Auscultation Abdomen: Normal Bowel Sounds, Soft, No Tenderness Neurological: Normal Speech Extremities: Drainms have been removed. Dressing is clean and dry. there is no erythema or induration Bilateral calves soft, no redness, tender to palpation bilaterally, pt states it is her baseline pain and not worse., right foot erythema over the right great toe and dorsum of the foot, mildly tender on palpation Current Medications: Current Medications Sig/Tena Start time Last Medication Dose Route Stop Time Status Admin Acetaminophen 650 MG Q6P PRN 05/110 AC 05/12 PO 2128 Cefazolin Sodium 2 GM IQ8 05/14 1600 AC 05/16 N/A 1 UNIT IV 1643 Dabigatran 150 MG BID 05/12 1000 AC 05/16 PO 0856 Furosemide 20 MG ONCE ONE 05/16 1230 DC 05/16 IV 05/16 1231 1304 Furosemide 40 MG DAILY 05/12 1000 AC 05/16 PO 0851 Guaifenesin 600 MG Q12 05/11 2200 AC 05/16 PO 0852 Lactobacillus 1 CAP BID 05/15 1229 AC 05/16 Acidophilus PO 0852 Levothyroxine Sodium 0.175 MG DAILY AC 05/12 0700 AC 05/16 PO 0526 Losartan Potassium 25 MG DAILY 05/12 1000 AC 05/16 PO 0851 Metoprolol Succinate 50 MG DAILY 05/14 1000 AC 05/16 PO 0852 Morphine Sulfate 2 MG Q4P PRN 05/11 2130 AC 05/14 IV 1058 Nystatin 1 MIRIAN BID PRN 05/13 0915 TOP Oxycodone/ 1 TAB Q6P PRN 05/13 0830 AC 05/16 Acetaminophen PO 0149 Paroxetine HCl 40 MG DAILY 05/12 1000 AC 05/16 PO 0851 Polyethylene Glycol 17 GM AT BEDTIME 05/11 2200 AC 05/14 PO 3 Potassium Chloride 20 MEQ BID 05/14 220 AC 05/16 PO 0852 Pravastatin Sodium 10 MG DAILY 05/12 1000 AC 05/16 PO 0852 Ramelteon 8 MG AT BEDTIME NEED.. 05/11 2130 AC 05/14 PO 2053 Senna/Docusate Sodium 2 TAB AT BEDTIME 05/11 2200 AC 05/14 PO 2052 Last 24 Hrs of Lab/Erik Results Last 24 Hrs of Labs/Mics: Laboratory Tests 05/16/17 1032: Troponin I < 0.01 05/16/1730: CBC w Diff NO MAN DIFF REQ, RBC 3.27 L, MCV 97.1, MCH 30.9, RDW 16.8 H, MPV 7.5, Gran % 74.8, Lymphocytes % 14.3 L, Monocytes % 6.4, Eosinophils % 3.9, Basophils % 0.6, Absolute Granulocytes 6.8 H, Absolute Lymphocytes 1.3, Absolute Monocytes 0.6, Absolute Eosinophils 0.4, Absolute Basophils 0.1, PUBS MCHC 31.9 L Lines/Diet/Fluids Catheters/Tubes: picc line Assessment/Plan Assessment: 80-year-old female was admitted for surgical wound infection in the setting of left femur Fx S/P IM Nail (03/30/17). She has PMH significant for stage II diastolic congestive heart failure on lasix, chronic atrial fibrillation who is on metoprolol and pradaxa s/p pacemaker placed in 2013, hypothyroidism, depression, COPD not on home oxygen, hypertension, hyperlipidemia, pulmonary hypertension with RVP Greater than 50. --Pertinent labs today WBC: H&H:, 10.1 31.7 --pre-op pelvic CT- IMPRESSION: Status post left hip replacement. Large subcutaneous fluid collection in the soft tissues lateral to the left hip. This could be aspirated percutaneously. --Initial culture from the aspiration of the soft tissue collection by IR was positive for alpha strep Deep tissue from OR Culture from left upper extremity showed growth of staph aureus MRSA confirmed. # Left hip-surgical site infection POD#5 I&D * Drain has been removed by PA * OOb for ambulation * Monitor for fever, leukocytosis, worsening pain, surgical site drainage * Deep tissue Culture grew staph aureus MRSA CONFIRMED.Her initial culture from the aspiration of the soft tissue collection by IR was positive for alpha strep, which was not isolated from the OR culture. we are treating her for both pathogens as per id recomendation * Cefazolin 2 g IV Q8 day 3 * Baseline ESR 35 * Pradaxa 150mg as per surgery recomendation * Continue to assess for calf swelling, none now, will obtain u/s to rule out dvt if changes * Plan to D/C to STR #Chest pain Pt camplianed of chest pain angina vs panic attack around 11am when she was transferred to chair * ekg obtained no acute changes as compared with old * tropnins -ve * most likely anxiety induced, pt fell well after being transherred to bed #Congestive heart failure #CXR done today showed that hazy opacity in the right lower lobe from atelectasis and/or infiltrate is slightly increased compared to the prior radiographic exams. we are diuresing her with lasix 40 mg PO Repeat cxr am * Lasix 40 mg daily PO * Chest x-ray -cardiomegaly, No pulmonary edema * continue home dose of Lasix * Strict I's and O's * Daily weights/ I/Os/ Salt restricted diet # Right foot pain Right foot is inflamed secondary to osteoarthritis versus gout. There is erythema over the right great toe and dorsum of the foot, mildly tender on palpation. * X-ray right foot showed no evidence of gouty arthritis. changes were consistent with chronic osteo arthritis * pt already on pain regimen * uric acid level normal 5.7 #Chronic atrial fibrillation s/p pacemaker * Pradaxa 150 mg resumed * Continue metoprolol 50 mg. # Hypertension * Continue losartan 25 mg # Hypothyroidism * Continue Synthyroid 0.17 mg #Depression * Continue paroxetine 40 mg daily #Hyperlipidemia * Continue statins * Cosidering her ABCVD score and multiple cardiac RF, I think patient needs high dose statins #Rash * under the breast and around bikini line * nystatin BID # Urinary tract infection * resolved (ampicillin 200mg iv q6 3days may 11 to may 13) Full code reg diet DVT prophylaxis- Pradaxa 150mg pain pathway Problem List: 1. CHF (congestive heart failure) 2. Hypothyroidism 3. Atrial fibrillation 4. Infected wound Pain Ratin Pain Location: left thigh Pain Goal: Pain 4 or less Pain Plan: percocet morphine Tomorrow's Labs & Rationales: none [place] DE JESUS,[facility] 05/16/17 1147: Attending MD Review Statement Attending Statement Attending MD Statement: examined this patient, discuss w/resident/PA/INTERFACE ANALYST, agreed w/resident/PA/INTERFACE ANALYST, reviewed EMR data (avail), discussed with nursing, discussed with case mgmt, reviewed images, amended to note Attending Assessment/Plan: Patient seen and examined, was very anxious this am. She had been on the recliner and wanted to go back to bed. She c/o feeling pressure in her chest, sob. Per RN she hfeels very anxious as soon as she gets out of bed to chair. Once put back on bed, she was fine. Vital Signs Date Time Temp Pulse Resp B/P B/P Pulse O2 O2 Flow FiO2 Mean Ox Delivery Rate 05/16 0852 60 140/72 05/16 0851 60 140/72 05/16 0612 98.0 60 20 140/72 96 Nasal 1.0L Cannula 05/15 2220 98.1 62 20 136/80 98 05/15 1600 Nasal 1.0L Cannula 05/15 1415 98.3 62 18 124/70 96 Nasal 1.0L Cannula on exam; aox3, looks anxious. cv; s1,s2, rrr resp; clear abd; soft, nt, bs+ ext; no edema. Laboratory Tests 05/16 05/16 1032 0530 Chemistry Troponin I (< 0.11 ng/ml) < 0.01 Hematology CBC w Diff NO MAN DIFF REQ WBC (4.8 - 10.8 /CUMM) 9.1 RBC (4.20 - 5.40 /CUMM) 3.27 L Hgb (12.0 - 16.0 G/DL) 10.1 L Hct (37 - 47 %) 31.7 L MCV (81.0 - 99.0 FL) 97.1 MCH (27.0 - 31.0 PG) 30.9 RDW (11.5 - 14.5 %) 16.8 H Plt Count (130 - 400 /CUMM) 378 MPV (7.4 - 10.4 FL) 7.5 Gran % (42.2 - 75.2 %) 74.8 Lymphocytes % (20.5 - 51.1 %) 14.3 L Monocytes % (1.7 - 9.3 %) 6.4 Eosinophils % (0 - 5 %) 3.9 Basophils % (0.0 - 2.0 %) 0.6 Absolute Granulocytes (1.4 - 6.5 /CUMM) 6.8 H Absolute Lymphocytes (1.2 - 3.4 /CUMM) 1.3 Absolute Monocytes (0.10 - 0.60 /CUMM) 0.6 Absolute Eosinophils (0.0 - 0.7 /CUMM) 0.4 Absolute Basophils (0.0 - 0.2 /CUMM) 0.1 PUBS MCHC (33.0 - 37.0 G/DL) 31.9 L A/P: 81 y/o F with pmh sig for atrial fibrillation on paradaxa, sinus sick syndrome status post pacemaker, hypothyroidism, COPD not on home oxygen, pulmonary hypertension, recent left hip arthroplasty for intertrochanteric and subtrochanteric femur fracture in March 2017, admitted this time with surgical site wound infection, requiring drainage. Currently patient getting treated with cefazolin. The surgical drains have been discontinued. Due to this morning's episode of possible anxiety with chest pain and shortness of breath, troponin was obtained which was negative. EKG was also negative. Chest x-ray was ordered which is still pending. If that came out negative, patient will be discharged to rehabilitation today. We just have to find out about the duration of antibiotics with infectious disease. Otherwise continue the rest of the treatment. If CXr neg, can be discharged to [facility].
--- NOTE | 2017-05-16 11:15 | NUR ---
PT LEFT FLOOR VIA STRETCHER TO XRAY
--- NOTE | 2017-05-16 11:44 | NUR ---
PT ARRIVED TO FLOOR VIA STRETCHER FROM [facility].
[2017-05-16] MEDS ORDERED: CEFAZOLIN2 GM/50 M1 IV ×2 (11:47→12:18)
--- NOTE | 2017-05-16 12:09 | RADIOLOGY REPORT ---
EXAMINATION: XR CHEST CLINICAL INFORMATION: Shortness of breath. COMPARISON: CXR from 05/09/2017 and 05/11/2017 TECHNIQUE: 2 views of the chest were obtained. FINDINGS: Lungs are suboptimally evaluated due to patient's large body habitus. Again noted is a large cardiac silhouette and congested appearance of central pulmonary vessels. No interstitial edema or overt pleural effusion. The single cardiac pacing lead terminates over the apex of the right ventricle. Lungs are hypoinflated and right diaphragm slightly elevated. The hazy opacity in the right lower lobe is slightly increased compared to the prior exams. Again noted is osteoarthritis of bilateral glenohumeral joints. No acute osseous abnormality. IMPRESSION: 1. Cardiomegaly and central vascular congestion without acute pulmonary edema. 2. The hazy opacity in the right lower lobe from atelectasis and/or infiltrate is slightly increased compared to the prior radiographic exams.
--- NOTE | 2017-05-16 12:30 | NUR ---
CHEST XRAY OBTAINED, MD ORDERED 20 MG IV LASIX, ADMINISTERED TO PATIENT, PT REPORTED RELIEF, WILL CONTINUE TO MONITOR.
[2017-05-16 15:02] VITALS: BP 120/70
[2017-05-16 22:32] VITALS: BP 110/70
[2017-05-17 06:49] VITALS: BP 128/70
--- NOTE | 2017-05-17 07:04 | PN- Housestaff ---
See Addendum Subjective Follow-up For: POD # 6Surgical site infection Complaints: no complaints Subjective: I have seen and examined the patient. She is lying comfortably in bed. She does not have any urinary urgency pain or burning. She does not complain of any pain. She denies any diarrhea. She states she had a panic attack yesterday. It was like a lump sitting on her chest. Today she is feeling much better. She has no current complaints. There were no overnight events. She does not complain of chest pain shortness of breath or palpitations. Review of Systems Constitutional: Denies: chills, fever, malaise. Cardiovascular: Denies: chest pain, palpitations. Respiratory: Denies: cough, short of breath. Gastrointestinal: Denies: constipation, nausea, changes in stool, vomiting. Genitourinary: Denies: discharge, dysuria, frequency, hesitation, pain, urgency. Skin: Denies: no symptoms. Objective Last 24 Hrs of Vital Signs/I&O Vital Signs Date Time Temp Pulse Resp B/P B/P Pulse O2 O2 Flow FiO2 Mean Ox Delivery Rate / 0841 65 128/70 /06 0840 65 128/70 07/06 0649 98.6 65 20 128/70 97 Nasal Cannula / 0000 Nasal 1.0L Cannula 05/16 2232 98.0 63 20 110/70 98 Nasal 1.0L Cannula / 1502 97.8 68 18 120/70 96 07/05 0852 60 140/72 07/05 0851 60 140/72 Intake & Output / 1600 /06 0800 07/ 0000 Intake Total 300 200 Output Total 350 200 Balance -50 0 Intake, IV 100 Intake, Oral 200 200 Number 0 1 Bowel Movements Output, Urine 350 200 Physical Exam General Appearance: Alert, Oriented X3, Cooperative, No Acute Distress Skin: Picc line right upper arm, no reness swelling or pain, mild rash under breast both sides and lower abd line Skin Temp/Moisture Exam: Warm/Dry Neck: Supple Cardiovascular: Normal S1, Normal S2, No Murmurs Lungs: Clear to Auscultation, Normal Air Movement Abdomen: Normal Bowel Sounds, Soft, No Tenderness Neurological: Normal Speech Extremities: Drainms have been removed. Dressing is clean and dry. there is no erythema or induration Bilateral calves soft, no redness, tender to palpation bilaterally, pt states it is her baseline pain and not worse., right foot erythema over the right great toe and dorsum of the foot, mildly tender on palpation Current Medications: Current Medications Sig/Tena Start time Last Medication Dose Route Stop Time Status Admin Acetaminophen 650 MG Q6P PRN 05/11 2130 AC 05/12 PO 2128 Cefazolin Sodium 2 GM IQ8 05/14 1600 AC 05/17 N/A 1 UNIT IV 0837 Dabigatran 150 MG BID 05/12 1000 AC 05/17 PO 0841 Furosemide 40 MG .STK-MED ONE 05/16 1302 DC IV 05/16 1303 Furosemide 20 MG ONCE ONE 05/16 1230 DC 05/16 IV 05/16 1231 1304 Furosemide 40 MG DAILY 05/12 1000 AC 05/17 PO 0840 Guaifenesin 600 MG Q12 05/11 2200 AC 05/17 PO 0840 Lactobacillus 1 CAP BID 05/15 1229 AC 05/17 Acidophilus PO 0840 Levothyroxine Sodium 0.175 MG DAILY AC 05/12 0700 AC 05/17 PO 0551 Losartan Potassium 25 MG DAILY 05/12 1000 AC 05/17 PO 0840 Metoprolol Succinate 50 MG DAILY 05/14 1000 AC 05/17 PO 0841 Morphine Sulfate 2 MG Q4P PRN 05/11 2130 AC 05/14 IV 1058 Nystatin 1 MIRIAN BID PRN 05/13 0915 AC TOP Oxycodone/ 1 TAB Q6P PRN 05/13 0830 AC 05/17 Acetaminophen PO 0553 Paroxetine HCl 40 MG DAILY 05/12 1000 AC 05/17 PO 0840 Polyethylene Glycol 17 GM AT BEDTIME 05/11 2200 AC 05/14 PO 205 Potassium Chloride 20 MEQ BID 05/14 2200 AC 05/17 PO 0841 Pravastatin Sodium 10 MG DAILY 05/12 1000 AC 05/17 PO 0841 Ramelteon 8 MG AT BEDTIME NEED.. 05/11 2130 AC 05/14 PO 2053 Senna/Docusate Sodium 2 TAB AT BEDTIME 05/11 2200 AC 05/14 PO 2052 Lines/Diet/Fluids Lines: picc line right upper arm Assessment/Plan Assessment: 80-year-old female was admitted for surgical wound infection in the setting of left femur Fx S/P IM Nail (03/30/17). She has PMH significant for stage II diastolic congestive heart failure on lasix, chronic atrial fibrillation who is on metoprolol and pradaxa s/p pacemaker placed in 2013, hypothyroidism, depression, COPD not on home oxygen, hypertension, hyperlipidemia, pulmonary hypertension with RVP Greater than 50. --pre-op pelvic CT- IMPRESSION: Status post left hip replacement. Large subcutaneous fluid collection in the soft tissues lateral to the left hip. This could be aspirated percutaneously. --Initial culture from the aspiration of the soft tissue collection by IR was positive for alpha strep Deep tissue from OR Culture from left upper extremity showed growth of staph aureus MRSA confirmed. CXR 05/18 hazy opacity in the right lower lobe from atelectasis and/or infiltrate is slightly increased compared to the prior radiographic exams Awating cxr results for today # Left hip-surgical site infection POD#6 I&D * DRAINS are out. site looks ok no induration, erythema or swelling with moderate serosanguinous drainage * Dressing changes BID. In rehab facility the dressings should still be changed BID and the wound should be painted with betadine with each dressing change. * Follow up with Dr. Mayorga about 7-10 days after discharge from [place] * [facility] for ambulation * Monitor for fever, leukocytosis, worsening pain, surgical site drainage * Deep tissue Culture grew staph aureus MRSA CONFIRMED.Her initial culture from the aspiration of the soft tissue collection by IR was positive for alpha strep, which was not isolated from the OR culture. we are treating her for both pathogens as per id recomendation * Removal of the hardware was not felt to be feasible will need antibiotics for 4 to 6 weeks * Cefazolin 2 g IV Q8 day 4 continue till June 25. pt already has a picc line * Baseline ESR 35 * Pradaxa 150mg as per surgery recomendation * Continue to assess for calf swelling, none now, will obtain u/s to rule out dvt if changes * Plan to D/C to STR #Chest pain Pt camplianed of chest pain angina vs panic attack around 11am yesterday when she was transferred to chair * ekg obtained no acute changes as compared with old * tropnins -ve * most likely anxiety induced, pt fell well after being transherred to bed #Congestive heart failure She complained of sob yesterday awaiting cxr results today #CXR done yesterday showed that hazy opacity in the right lower lobe from atelectasis and/or infiltrate is slightly increased compared to the prior radiographic exams. we are diuresing her with lasix 40 mg PO Repeat cxr am, awaiting cxr if no change will be discharged today to [facility] * Lasix 40 mg daily PO * Strict I's and O's * Daily weights/ I/Os/ Salt restricted diet # Right foot pain Right foot is inflamed secondary to osteoarthritis versus gout. There is erythema over the right great toe and dorsum of the foot, mildly tender on palpation. * X-ray right foot showed no evidence of gouty arthritis. changes were consistent with chronic osteo arthritis. Uric acid level normal 5.7 * pt already on pain regimen #Chronic atrial fibrillation s/p pacemaker * Pradaxa 150 mg resumed * Continue metoprolol 50 mg. # Hypertension * Continue losartan 25 mg # Hypothyroidism * Continue Synthyroid 0.17 mg #Depression * Continue paroxetine 40 mg daily #Hyperlipidemia * Continue statins * Cosidering her ABCVD score and multiple cardiac RF, I think patient needs high dose statins #Rash * under the breast and around bikini line * nystatin BID # Urinary tract infection * resolved (ampicillin 200mg iv q6 3days may 11 to may 13) Full code reg diet DVT prophylaxis- Pradaxa 150mg pain pathway Problem List: 1. Atrial fibrillation 2. Infected wound Pain Ratin Pain Location: left thigh Pain Goal: Pain 4 or less Pain Plan: morphine and oxycodone Tomorrow's Labs & Rationales: none
--- NOTE | 2017-05-17 07:34 | PN- Orthopedic ---
Subjective Subjective: Patient in very good spirits. Denies any meaningful left hip pain. No complaints today of chest pain or SOB. Objective Vital Signs and I&Os Vital Signs Date Time Temp Pulse Resp B/P B/P Pulse O2 O2 Flow FiO2 Mean Ox Delivery Rate 05/17 0649 98.6 65 20 128/70 97 Nasal Cannula 05/17 0000 Nasal 1.0L Cannula 05/16 2232 98.0 63 20 110/70 98 Nasal 1.0L Cannula 05/16 1502 97.8 68 18 120/70 96 05/16 0852 60 140/72 05/16 0851 60 140/72 05/16 0800 Nasal 1.0L Cannula Intake & Output 05/17 08/ 0000 05/16 1600 05/16 0805/16 0000 05/15 1600 Intake Total 300 200 460 390 580 500 Output Total 350 200 Balance -50 0 460 390 580 500 Intake, IV 100 100 150 100 50 Intake, Oral 200 200 360 240 480 450 Number 0 1 0 3 Bowel Movements Output, Urine 350 200 Physical Exam: Still draining moderate amounts of serosanguinous drainage from left hip wound. Suture line intact. Mild swelling and minimal if any erythema. Moving around quite well in bed. Gait not tested today. Left hip motion increasing. Motor and sensory function are intact. Assessment/Plan Assessment/Plan Assessment: Stable with continued slow healing and moderate serosanguinous drainage now roughly 1 week status post I&D left hip wound infection. On appropriate IV antibiotic coverage. Plan: Jail antibiotic coverage for treamtent of infection and suppression of infection recurrence. Dressing changes BID . When patient goes to rehab facility the dressings should still be changed BID and the wound painted with betadine with each dressing change. Follow up with Dr. Mayorga about 7-10 days after discharge from [place]. Core Measures/Miscellaneous Venous Thromboembolism VTE Risk Factors: Age > 40, Surgery VTE Contraindications: No Contraindications VTE Diagnosis: No VTE Type: NONE VTE Confirmed by (Test): NONE Beta Zhou Is Beta Zhou a Home Med? No Antibiotics Is Patient on Antibiotics? Yes If Yes: infection
--- NOTE | 2017-05-17 11:44 | PN- Infect Dx ---
Subjective Subjective: Afebrile without complaints Objective Last 24 Hrs of Vital Signs/I&O Vital Signs Date Time Temp Pulse Resp B/P B/P Pulse O2 O2 Flow FiO2 Mean Ox Delivery Rate 05/17 0841 65 128/70 05/17 0840 65 128/70 05/17 0800 Nasal 1.0L Cannula 05/17 0649 98.6 65 20 128/70 97 Nasal Cannula 05/17 0000 Nasal 1.0L Cannula 05/16 2232 98.0 63 20 110/70 98 Nasal 1.0L Cannula 05/16 1502 97.8 68 18 120/70 96 Intake & Output 05/17 1600 05/17 0800 05/17 0000 Intake Total 300 200 Output Total 350 200 Balance -50 0 Intake, IV 100 Intake, Oral 200 200 Number 0 1 Bowel Movements Output, Urine 350 200 Physical Exam Other Physical Findings: She appears comfortable in no acute distress Lungs are clear Heart regular rhythm with no murmur Abdomen is soft, nontender with positive bowel sounds Extremities left hip incision clean, with no erythema or active drainage; PICC in the right upper extremity with no inflammation at the site Results Last 24 Hours of Lab Results: Laboratory Tests 05/16 05/16 1032 0530 Chemistry Troponin I (< 0.11 ng/ml) < 0.01 Hematology CBC w Diff NO MAN DIFF REQ WBC (4.8 - 10.8 /CUMM) 9.1 RBC (4.20 - 5.40 /CUMM) 3.27 L Hgb (12.0 - 16.0 G/DL) 10.1 L Hct (37 - 47 %) 31.7 L MCV (81.0 - 99.0 FL) 97.1 MCH (27.0 - 31.0 PG) 30.9 RDW (11.5 - 14.5 %) 16.8 H Plt Count (130 - 400 /CUMM) 378 MPV (7.4 - 10.4 FL) 7.5 Gran % (42.2 - 75.2 %) 74.8 Lymphocytes % (20.5 - 51.1 %) 14.3 L Monocytes % (1.7 - 9.3 %) 6.4 Eosinophils % (0 - 5 %) 3.9 Basophils % (0.0 - 2.0 %) 0.6 Absolute Granulocytes (1.4 - 6.5 /CUMM) 6.8 H Absolute Lymphocytes (1.2 - 3.4 /CUMM) 1.3 Absolute Monocytes (0.10 - 0.60 /CUMM) 0.6 Absolute Eosinophils (0.0 - 0.7 /CUMM) 0.4 Absolute Basophils (0.0 - 0.2 /CUMM) 0.1 PUBS MCHC (33.0 - 37.0 G/DL) 31.9 L Last 24 Hours of Erik Results: No recent cultures Recent Imaging Studies: Chest x-ray May 16, personally reviewed, reveals central vascular congestion with a hazy opacity in the right lower lobe, without any significant change from her previous x-ray X-ray of the right foot May 14 no evidence of gouty arthritis Assessment/Plan Impression: Stable with temperatures and white blood cell count remaining normal on Cefazolin Day 4 of treatment for MSSA surgical site infection/osteomyelitis now 6 days status post post I&D of a left hip infection, which extended below the fascia, and which presumably involves the hardware which was placed 6 weeks prior to admission for a left comminuted femoral intertrochanteric/ subtrochanteric fracture. As it may be difficult to clear this infection without removal of the hardware, which is not apparently feasible, it may be necessary to consider lifelong antibiotic suppression. Suggestion: 1. Continue Cefazolin to complete a six-week course of IV antibiotics (until June 24), after which she will likely require lifelong suppression with an oral antibiotic, such as Keflex 2. Weekly ESR while on IV antibiotics
--- NOTE | 2017-05-17 14:08 | RADIOLOGY REPORT ---
EXAMINATION: XR CHEST CLINICAL INFORMATION: Shortness of breath. COMPARISON: 05/16/2017 TECHNIQUE: 2 views of the chest were obtained. FINDINGS: Large body habitus. Linear and curvilinear opacities of subsegmental atelectasis are present in lower lung zones. The right basilar opacity appears decreased and the right diaphragm is now more sharply defined. The lateral radiograph shows persistent opacification in the lower lobes. Probable trace bilateral pleural effusions, as well. Again noted is the large cardiac silhouette and prominent central pulmonary vessels without overt interstitial edema. The single cardiac pacing lead terminates over the apex of the right ventricle. IMPRESSION: 1. Cardiomegaly and pulmonary vascular congestion without overt pulmonary edema. 2. Persistent atelectasis and/or infiltrates in lower lobes and probable trace pleural effusions. The aeration of the right lung base is slightly improved compared to 05/16/2017.
[2017-05-17 14:13] VITALS: BP 128/70
[2017-05-17 14:38] VITALS: BP 110/60
--- NOTE | 2017-05-17 18:09 | NUR ---
1756 ALERT AND ORIENTED X 3. ON 1L O2 VIA NC. EXERTIONAL SHORTNESS OF BREATH VITAL SIGNS STABLE. DENIES CHEST PAIN. + PULSES. DENIES NUMBNESS/TINGLING TRACE EDEMA TO BLE. DSG TO L HIP IS C/D/I. NO DISTRESS OR DISCOMFORT NOTED
== END 2017-05-17 17:56 | DRG 863 ==
LOC: ERH 14:48 → 2NA 18:42 → ERHI 18:42 → ENRESERV 19:26 → ENTRNSPT 20:15 → 2NA 20:22 → CMPTRNSPT 20:36 → 2NA 05-10 08:38 → ENPENDDIS 05-17 14:21 → 2NA 05-17 17:56
PROVIDERS: Hospitalist; Physician Assistant Medical; Student in an Organized Health Care Education/Training Program; ADMIT Internal Medicine
PROC: 0J9M30Z Drainage of Left Upper Leg Subcutaneous Tissue and Fascia with Drainage Device, Percutaneous Approach (ICD-10-PCS; principal; 2017-05-12)
DX: T81.4XXA Infection following a procedure, initial encounter (principal); I50.32 Chronic diastolic (congestive) heart failure; I27.2 Other secondary pulmonary hypertension; I11.0 Hypertensive heart disease with heart failure; N39.0 Urinary tract infection, site not specified; J44.9 Chronic obstructive pulmonary disease, unspecified; I48.2 Chronic atrial fibrillation; Z79.01 Long term (current) use of anticoagulants; B96.4 Proteus (mirabilis) (morganii) as the cause of diseases classified elsewhere; Z95.0 Presence of cardiac pacemaker; Z99.81 Dependence on supplemental oxygen; E78.5 Hyperlipidemia, unspecified; Z85.3 Personal history of malignant neoplasm of breast; E89.0 Postprocedural hypothyroidism; S72.142D Displaced intertrochanteric fracture of left femur, subsequent encounter for closed fracture with routine healing; W19.XXXD Unspecified fall, subsequent encounter; F32.9 Major depressive disorder, single episode, unspecified; R21 Rash and other nonspecific skin eruption; Y83.4 Other reconstructive surgery as the cause of abnormal reaction of the patient, or of later complication, without mention of misadventure at the time of the procedure; D50.0 Iron deficiency anemia secondary to blood loss (chronic); R19.7 Diarrhea, unspecified
CPT/HCPCS: 2NASP; 87070; 87075; 87184; 36415; 72170; 73502-LT; 73552; 73630-RT; 81001; 82436; 87040; 87086; 87147; 93005; 93010; 97110-GO; 97116-GO; 97161-GP; 97530-GO; C1769; J0131; J0290; J0690; J0713; J1100; J1644; J1885; J1940; J2405; J3370; J7040; J7042

== ENCOUNTER → 2018-03-01 | Day surgery (SDC) | payer OTHER ==
[~2018-03-01] VITALS: Ht 162.6 cm; Wt 89.8 kg
[~2018-03-01] MED LIST changes: +ACEPHEN650 M1 PR; +ANORO ELLIPTA1 EACH INH; +CEFAZOLIN2 GM/50 M1 IV; +CEPHALEXIN500 M3 PO; +DULCOLAX10 M1 RC; +FLEET ENEMA133 ML RC; +FLORASTOR250 M1 PO; +MILK OF MA400 MG/52 PO; -MULTI-DAY VITA1 EACH PO; +MULTI-VITAMIN1 EACH PO; +NARCAN4 MG NAS; +POTASSIUM CHLO20 ME2 PO; +TRAMADOL HCL50 M1 PO
--- NOTE | 2018-03-01 10:16 | Operative Report ---
See Addendum Operative/Inv Procedure Report Surgery Date: 03/01/18 Name of Procedure: Right partial mastectomy and sentinel lymph node biopsy Pre-Operative Diagnosis: Right breast cancer Post-Operative Diagnosis: Same Estimated Blood Loss: less than 50ml Surgeon/[employer] Repairer: Temitope Teixeira MD Anesthesia: laryngeal mask airway Specimens: Right lumpectomy, cranial margin, caudal margin, deep margin, medial margin, sentinel lymph node, palpable lymph nodes Operative/Procedure Note Note: Patient presented with palpable right breast mass which showed invasive carcinoma. She is brought to the operating room for partial mastectomy and sentinel lymph node biopsy. Preoperative lymphoscintigraphy was performed and those films reviewed. Brought to the operating room placed under anesthesia. 2g of Ancef was given and the right breast is prepped and draped in a sterile fashion using ChloraPrep. 3 mL of methylene blue diluted with 2 mL of saline was injected in the retroareolar fashion. The palpable mass was identified in the upper outer quadrant. An ellipse of skin was excised over the palpable mass. The breast tissues dissected down to the clavipectoral fascia and the specimen was removed and marked for orientation and margin map. Intraoperative x-ray confirmed the presence of the clip in the specimen. The axilla was approached through the same incision and there was a palpable lymph node identified. This was excised. He sentinel lymph node was then identified with increased radionucleotide uptake this was marked as sentinel lymph node. This was adjacent to 1 or 2 other palpable lymph nodes which were taken as well. Decision was made to not pursue complete axillary dissection due to risk of complications. There were no other palpable lymph nodes in the axilla. Hemostasis was achieved using electrocautery. The margins of the dissection were marked using mammary clips. Deep tissue was proximal made using interrupted Vicryl sutures and skin was closed in running Biosyn subcutaneous color stitch. Steri-Strips and sterile dressings were applied and patient transferred to the recovery room in satisfactory condition having tolerated the procedure well.
== END ==
LOC: STS 02:20
DX: C50.411 Malignant neoplasm of upper-outer quadrant of right female breast (principal); C77.3 Secondary and unspecified malignant neoplasm of axilla and upper limb lymph nodes; Z17.1 Estrogen receptor negative status [ER-]; Z85.3 Personal history of malignant neoplasm of breast; I48.91 Unspecified atrial fibrillation; I10 Essential (primary) hypertension; I25.10 Atherosclerotic heart disease of native coronary artery without angina pectoris; Z95.0 Presence of cardiac pacemaker; Z87.891 Personal history of nicotine dependence; E07.9 Disorder of thyroid, unspecified
CPT/HCPCS: 88305; 88307; 88331; J0690; J1200; Q9968